=== PATIENT | female | born 1945 | race Caucasian/White ===

== ENCOUNTER 2017-12-31 06:20 | Inpatient (IN) | payer OTHER ==
[2017-12-28 10:39] LABS: BASOPHILS # (AUTO) 0.1 (0.0-0.1); BASOPHILS % 0.8 % (0.0-1.0); EOSINOPHILS # (AUTO) 0.3 (0.0-0.4); EOSINOPHILS % 3.1 % (0.0-6.0); HEMATOCRIT 35.4 % (34.2-44.1); HEMOGLOBIN 10.8 g/dL (12.0-16.0); LYMPHOCYTES # (AUTO) 1.2 (1.0-3.2); LYMPHOCYTES % 13.9 % (18.0-39.1); MEAN CORPUSCULAR HEMOGLOBIN 26.5 pg (28-32); MEAN CORPUSCULAR HGB CONC 30.5 g/dL (31-35); MONOCYTES # (AUTO) 0.7 (0.2-0.8); MONOCYTES % 7.7 % (4.4-11.3); NEUTROPHILS # (AUTO) 6.4 (2.1-6.9); NEUTROPHILS % 73.6 % (38.7-80.0); PLATELET COUNT 219 x10e3/uL (140-360); RED BLOOD COUNT 4.07 x10e6/uL (3.6-5.1); RED CELL DISTRIBUTION WIDTH 13.4 % (11.7-14.4)
[2017-12-28 10:52] LABS: ANION GAP 14.4 mmol/L (8-16); BLOOD UREA NITROGEN 18 mg/dL (7-26); BUN/CREATININE RATIO 24 (6-25); CALCIUM 9.4 mg/dL (8.4-10.2); CARBON DIOXIDE 29 mmol/L (22-29); CHLORIDE 101 mmol/L (98-107); CREATININE, SERUM 0.76 mg/dL (0.57-1.11); EST GLOMERULAR FILTRATION RATE > 60 ML/MIN (60-); GLUCOSE 84 mg/dL (74-118); POTASSIUM 4.4 mmol/L (3.5-5.1); SODIUM 140 mmol/L (136-145)
--- NOTE | 2017-12-28 12:34 | Diagnostic Imaging Report ---
PROCEDURE: X-RAY CHEST, TWO VIEWS COMPARISON: Patients [facility], DX, CHEST 2 VIEWS, 02/19/2017, 12:24. INDICATIONS: PREOPERATIVE CHEST XRAY FOR LEFT HIP SURGERY FINDINGS: LUNGS: Diffusely hyperinflated consistent with COPD. No mass or infiltrate. Mild apical pleural-parenchymal thickening is stable. Vascular markings are normal. PLEURA: No effusions or pneumothorax. HEART \T\ MEDIASTINUM: The heart is within normal size-limits. BONES \T\ SOFT TISSUES: The bones are diffusely demineralized. Fusion hardware in the upper lumbar spine is stable and incompletely imaged. Degenerative changes of the left shoulder are stable. CONCLUSION: Stable pulmonary hyperinflation suggestive of COPD. No acute cardiopulmonary process. Dictated by: Babatunde Prado M.D. on 12/28/2017 at 12:38 Electronically approved by: Babatunde Prado M.D. on 12/28/2017 at 12:38
[~2017-12-31] VITALS: Ht 162.6 cm; Wt 64.9 kg
[~2017-12-31 06:20] MED LIST: AMLODIPINE BESYL5 MG PO; ARICEPT5 MG PO; AZOR 5-20 MG T1 EACH PO; BENZTROPINE MESY1 MG PO; BUPROPION XL150 MG PO; CITALOPRAM HBR20 MG PO; CITRACAL + D E1 EACH PO; CO-GESIC 5-5001 EACH PO; COGENTIN1 MG/1 ML; CYMBALTA30 MG PO; DECARA25000 UNIT PO; DICYCLOMINE HCL20 MG PO; FLUOXETINE HCL20 M1 PO; HYDROCODON-ACE1 EAC9 PO; LAMOTRIGINE100 MG PO; LEVOXYL25 MCG PO; LINZESS PO; LORAZEPAM1 MG PO; LUNESTA2 MG PO; METFORMIN HCL500 MG PO; MIRALAX17 GM PO; MORPHINE PO; MORPHINE SULFAT15 M1 PO; NORCO 10-325 T1 EACH PO; OMEPRAZOLE40 MG PO; PEXEVA30 MG PO; QUETIAPINE FUM100 MG PO; QUETIAPINE FUMA25 MG PO; QUETIAPINE FUMA50 MG PO; SENOKOT-S TABL1 EACH PO; SERTRALINE HCL100 MG PO; TOPIRAMATE100 MG PO; TRAZODONE HCL50 MG PO; Z.0.LAMICTAL100 MG PO; Z.0.LOPID600 MG PO; Z.0.TRAZODONE HCL100 PO; [UNRECOGNIZED DRUG - OTHER] PO
[2017-12-31] MEDS ORDERED: VANCOMYCIN 1GM/NS 250 ML 250 ML ONE (06:51)
[2017-12-31] MEDS ORDERED: DEXAMETHASONE SOD PHOS 10 MG/1 ML VIAL ONE (06:54)
[2017-12-31] MEDS ORDERED: GABAPENTIN 300 MG CAP ONE (06:54)
[2017-12-31] MEDS ORDERED: CELECOXIB 200 MG CAP ONE (06:54)
[2017-12-31] MEDS ORDERED: ROPIVACAINE 246.25 MG, EPINEPHRINE HCL 1:1000 0.5 MG, CLONIDINE HCL 0.08 MG, KETOROLAC ... INJ ONE ×5 (07:30)
[2017-12-31] MEDS ORDERED: MUPIROCIN 2% OINT 22 GM TUBE ONE (07:52)
[2017-12-31] MEDS ORDERED: TRANEXAMIC ACID 1,000 MG/10 ML ML ONE (07:52)
[2017-12-31] MEDS ORDERED: BACITRACIN 50,000 UNIT VIAL ONE (07:52)
[2017-12-31] MEDS ORDERED: HYDROGEN PEROXIDE 120 ML BTL ONE (07:52)
[2017-12-31] MEDS ORDERED: ACETAMINOPHEN 650 MG SUPP PR PRN (09:45)
[2017-12-31] MEDS ORDERED: ONDANSETRON HCL INJ 2 MG/ML VIAL IV PRN (09:45)
[2017-12-31] MEDS ORDERED: DOCUSATE SODIUM 100 MG CAP PO PRN (09:45)
[2017-12-31] MEDS ORDERED: HYDROCODONE/APAP 5MG-325MG TAB PO PRN (09:45)
[2017-12-31] MEDS ORDERED: DIPHENHYDRAMINE HCL INJ 50 MG/ML VIAL IM/IV PRN (09:45)
--- NOTE | 2017-12-31 11:01 | Operative Report ---
DATE OF PROCEDURE: December 31, 2017 ANHYDROUS AMMONIA PRODUCTION SUPERVISOR: Horacio Riley PA-C The patient was brought to the operating room for induction of anesthesia. Throughout this case, my PA's assistance was necessary for retraction of soft tissue and positioning of the extremity. This allows for efficient and technically successful execution of the operation and is considered medically necessary. PREOPERATIVE DIAGNOSIS: Left hip osteonecrosis. POSTOPERATIVE DIAGNOSIS: Left hip osteonecrosis. PROCEDURE: Left total hip arthroplasty. INDICATIONS: The patient is a 72-year-old lady who has clinic signs and symptoms consistent with osteonecrosis of her left hip. She has failed conservative management and has severe disabling pain. She would like to proceed with a left total hip replacement. The risks and benefits have been explained. She states she understands and wishes to proceed. DESCRIPTION OF PROCEDURE: The patient was brought to the operating room and placed under general anesthetic. She received prophylactic antibiotics and tranexamic acid in the holding area. She was positioned in the right lateral decubitus position. Her left hip was prepped and draped in a sterile manner. A preoperative time out was performed. A posterior approach was made to left hip. Care was taken to avoid injury to the sciatic nerve. Hemostasis was obtained with electrocautery. A deep Charnley retractor was placed. The posterior capsule was carefully exposed. Further hemostasis was obtained with electrocautery. The posterior capsule and short external rotators were released. A large intra-articular effusion was encountered. The hip was dislocated and pronounced subchondral collapse was noted. The femoral head was resected using an oscillating saw. Acetabular retractors were placed. Nice visualization of the socket was accomplished. A [place] hip system was used throughout the case. Labral remnants were removed. The true floor of the acetabulum was established with a 46-mm reamer. The socket was then reamed up to 52 mm. This accomplished bleeding hemispherical cancellous bone. A Trident II socket was impacted into place. Good secure fixation was obtained. Fixation was augmented with a single 20-mm screw placed into the ilium. The hip was thoroughly irrigated with a shower-tip pulsatile lavage before and after implanting the socket. A portion of a 100 mL premixed pericapsular injection was injected around the soft tissue. A highly cross link polyethylene liner with no posterior elevation and a 36 mm inner diameter was then seated into place. Care was taken to make sure that there was no soft tissue interposed. The socket was packed with a moistly soaked lap sponge, and attention was directed towards the proximal femur. A box cutting osteotome and taper pin reamer were used to establish entry to the femoral canal. The Chandler 37.5 mm offset broaches were trialed. A #0 stem had adequate canal stability for trial reductions. Nice mandaen of limb length and stability was accomplished with a standard 36-mm head. The trial implants were removed. A small bone plug was placed down the femoral canal. The canal was thoroughly irrigated with a pulsatile lavage. It was packed with moistly soaked peroxide sponges under suction. Two mixes of Simplex cement preloaded with antibiotics were prepared on the back table. This cement was inserted in a retrograde fashion and pressurized until about 6-1/2 minutes of cement time. The stem was seated to the predetermined level and about 15 degrees of anteversion. Once the cement had cured, repeat trial reductions were performed. Again, a standard 36-mm head was felt to be optimal. The implant was seated and a final reduction was performed. The capsule was repaired with #2 Ethibond. The hip was put through a full arc of motion and noted have excellent stability. The hip was further irrigated. The remainder of the catie-incisional injection was placed. The tensor fascia and gluteal fascia were closed with #2 Ethibond. The skin was closed with subcuticular Vicryl and janeth. A sterile bandage was applied. She was returned to the supine position, extubated and transported to the recovery room in stable condition. Blood loss was approximately 75 mL. At the end of the procedure, all needle and sponge counts were correct. Job#: [id number] MONICO
--- NOTE | 2017-12-31 11:01 | Diagnostic Imaging Report ---
PROCEDURE:X-RAY PELVIS, AP VIEW COMPARISON:None. INDICATIONS:POST OP FINDINGS: See conclusion. CONCLUSION: Expected postoperative changes at the left hip arthroplasty, marked by soft tissue emphysema, edema, and overlying skin janeth. The hardware is intact. Dictated by: Forrest Feliz M.D. on 12/31/2017 at 11:05 Electronically approved by: Forrest Feliz M.D. on 12/31/2017 at 11:05
[2017-12-31] MEDS: FENTANYL CITRATE/PF 100MCG/2 ML INJ ONE ×2 (11:13→11:57)
[2017-12-31] MEDS: ACETAMINOPHEN 1000 MG/100 ML IV SCH ×2 (11:13→17:02)
[2017-12-31] MEDS: ACETAMINOPHEN 1000 MG/100 ML 100 ML IV ONE ×2 (11:13→12:19)
[2017-12-31] MEDS: SODIUM CHLORIDE 0.9% 1000ML 1,000 ML IV SCH ×2 (11:51→19:44)
[2017-12-31] MEDS: KETOROLAC TROMETHAMINE 30 MG/ML VIAL IV PRN ×2 (11:53→18:35)
[2017-12-31 12:00] VITALS: BP 140/61
[2017-12-31 12:37] VITALS: BP 140/61
[2017-12-31] MEDS: HYDROCODONE/APAP 7.5MG-325MG 1 EA TAB PO PRN ×3 (14:32→21:00)
[2017-12-31 16:00] VITALS: BP 122/57
[2017-12-31] MEDS ORDERED: CELECOXIB 100 MG CAP PO SCH (17:00)
[2017-12-31] MEDS: ASPIRIN 325 MG TAB PO SCH (17:01)
[2017-12-31] MEDS: CELECOXIB 200 MG CAP PO SCH (17:01)
[2017-12-31] MEDS: VANCOMYCIN 1GM/NS 250 ML 250 ML IV SCH (17:23)
[2017-12-31] MEDS ORDERED: ACETAMINOPHEN 1000 MG/100 ML IV ONE (17:35)
[2017-12-31] MEDS ORDERED: ROCURONIUM BROMIDE 10 MG/ML 5ML VIAL ONE (17:35)
[2017-12-31] MEDS ORDERED: ONDANSETRON HCL INJ 2 MG/ML VIAL ONE (17:35)
[2017-12-31] MEDS ORDERED: DEXAMETHASONE SOD PHOS INJ 4 MG/ML VIAL ONE (17:35)
[2017-12-31] MEDS ORDERED: PROPOFOL IV EMULSION 10 MG/ML 20 ML VIAL ONE (17:35)
[2017-12-31] MEDS ORDERED: LIDOCAINE HCL 2% LOCAL INJ 5 ML SDV VIAL INJ ONE (17:35)
[2017-12-31] MEDS ORDERED: SEVOFLURANE INHAL SOLN 250 ML PEN BTL ONE (17:35)
[2017-12-31] MEDS ORDERED: LIDOCAINE HCL 2% JELLY 5 ML TUBE ONE (17:35)
[2017-12-31] MEDS ORDERED: FENTANYL CITRATE/PF 100MCG/2 ML INJ ONE (17:44)
[2017-12-31 20:00] VITALS: BP 156/69
[2017-12-31] MEDS ORDERED: ZOLPIDEM TARTRATE 5 MG TAB PO PRN (21:00)
[2017-12-31] MEDS ORDERED: PROMETHAZINE HCL (IM) 25 MG/ML VIAL IM PRN (21:00)
[2018-01-01] VITALS (8 sets, daily range): BP systolic 141–184; BP diastolic 62–86
[2018-01-01] MEDS: ACETAMINOPHEN 1000 MG/100 ML IV SCH ×2 (00:13→05:10)
[2018-01-01] MEDS: KETOROLAC TROMETHAMINE 30 MG/ML VIAL IV PRN ×2 (00:45→06:46)
[2018-01-01] MEDS: HYDROCODONE/APAP 7.5MG-325MG 1 EA TAB PO PRN ×2 (01:50→06:24)
[2018-01-01] MEDS: SODIUM CHLORIDE 0.9% 1000ML 1,000 ML IV SCH (05:09)
[2018-01-01 05:33] LABS: HEMATOCRIT 29.7 % (34.2-44.1); HEMOGLOBIN 9.6 g/dL (12.0-16.0)
[2018-01-01] MEDS: VANCOMYCIN 1GM/NS 250 ML 250 ML IV SCH (05:33)
[2018-01-01] MEDS: CELECOXIB 200 MG CAP PO SCH (07:55)
[2018-01-01] MEDS: ASPIRIN 325 MG TAB PO SCH (07:55)
[2018-01-01] MEDS ORDERED: HYDROCODONE/APAP 10MG-325MG TAB PO PRN (09:00)
[2018-01-01] MEDS ORDERED: CALCIUM CARB PO SCH (09:00)
[2018-01-01] MEDS ORDERED: CIT PO SCH (09:00)
[2018-01-01] MEDS ORDERED: AMLODIPINE BESYLATE 5 MG TAB PO SCH (09:00)
[2018-01-01] MEDS ORDERED: BUPROPION HCL 150 MG TABCR PO SCH (09:00)
[2018-01-01] MEDS ORDERED: METFORMIN HCL 500 MG TAB PO SCH (09:00)
[2018-01-01] MEDS ORDERED: DICYCLOMINE HCL 20 MG TAB PO SCH (09:00)
[2018-01-01] MEDS ORDERED: VITAMIN D3 PO SCH (09:00)
[2018-01-01] MEDS ORDERED: LORAZEPAM 1 MG TAB PO PRN (09:00)
[2018-01-01] MEDS ORDERED: HYDROCODONE/APAP 10MG-325MG TAB PO ONE (09:15)
[2018-01-01] MEDS: MORPHINE SULFATE INJ 4 MG/ML INJ IV PRN ×2 (09:27→14:19)
[2018-01-01] MEDS ORDERED: ACETAMINOPHEN 1000 MG/100 ML IV PRN (09:45)
[2018-01-01] MEDS ORDERED: ASPIRIN325 MG PO (12:39)
[2018-01-01] MEDS ORDERED: SERTRALINE HCL 100 MG TAB PO SCH (17:00)
[2018-01-01] MEDS ORDERED: TRAZODONE HCL 50 MG TAB PO SCH (21:00)
[2018-01-01] MEDS ORDERED: NON-FORMULARY MEDICATION (Eszopiclone (Lunesta) 2 MG) PO SCH (21:00)
[2018-01-01] MEDS ORDERED: DONEPEZIL HCL 5 MG TAB PO SCH (21:00)
[2018-01-02] MEDS ORDERED: CITALOPRAM HYDROBROMIDE 20 MG TAB PO SCH (09:00)
[2018-01-02] MEDS ORDERED: OYST-CAL-D 500MG TABLET PO SCH (09:00)
[2018-01-02] MEDS ORDERED: FLUOXETINE HCL 20 MG CAP PO SCH (09:00)
== END 2018-01-01 16:09 | disposition home health service (06) | DRG 470 ==
LOC: OR 06:20 → PACU V 09:46 → MED/SURG 11:35
PROVIDERS: ADMIT Specialist; ATTEND Specialist
PROC: 0SRB049 Replacement of Left Hip Joint with Ceramic on Polyethylene Synthetic Substitute, Cemented, Open Approach (ICD-10-PCS; principal; 2017-12-31 08:30)
DX: M87.152 Osteonecrosis due to drugs, left femur (principal); I10 Essential (primary) hypertension; F41.9 Anxiety disorder, unspecified; J45.909 Unspecified asthma, uncomplicated; E78.5 Hyperlipidemia, unspecified; F32.9 Major depressive disorder, single episode, unspecified; T38.0X5A Adverse effect of glucocorticoids and synthetic analogues, initial encounter; M17.11 Unilateral primary osteoarthritis, right knee; Z96.651 Presence of right artificial knee joint
CPT/HCPCS: 36415; 71046; 72170; 80048; 82948; 85014; 85018; 85025; 86850; 86900; 86920; 93005; 97139; C1713; J0171; J1100; J1200; J1885; J2001; J2270; J2405; J2795; J3370; J7030

== ENCOUNTER 2018-07-13 10:04 | Observation (INO) | payer MEDICARE ==
[~2018-07-13] VITALS: Ht 162.6 cm; Wt 65.8 kg
[2018-07-13] VITALS (7 sets, daily range): BP systolic 144–158; BP diastolic 63–71
[~2018-07-13 10:04] MED LIST changes: +ASPIRIN325 MG PO; +GABAPENTIN300 MG PO; +LEVAQUIN250 MG PO; +SYMBICORT 16010.2 GM; +TRILEPTAL300 MG PO; +TYLENOL WITH C1 EACH PO; +ZOFRAN ODT4 MG
--- NOTE | 2018-07-13 10:30 | NUR ---
Patient came in as a direct admission on a wheelchair. She was accompanied by her son. Her daughter in law brought in her home medications so we can write them in. Patient is AxO x 3. She is cooperative and has restless legs. Son mentioned "she has bipolar and at the end of her manic stage".
[2018-07-13 10:54] LABS: BASOPHILS # (AUTO) 0.1 (0.0-0.1); BASOPHILS % 0.7 % (0.0-1.0); EOSINOPHILS # (AUTO) 0.4 (0.0-0.4); EOSINOPHILS % 4.9 % (0.0-6.0); HEMATOCRIT 36.9 % (34.2-44.1); HEMOGLOBIN 11.6 g/dL (12.0-16.0); LYMPHOCYTES # (AUTO) 0.9 (1.0-3.2); MEAN CORPUSCULAR HEMOGLOBIN 26.2 pg (28-32); MEAN CORPUSCULAR HGB CONC 31.4 g/dL (31-35); MEAN CORPUSCULAR VOLUME 83.3 fL (81-99); MONOCYTES # (AUTO) 0.5 (0.2-0.8); MONOCYTES % 7.6 % (4.4-11.3); NEUTROPHILS # (AUTO) 5.2 (2.1-6.9); NEUTROPHILS % 73.2 % (38.7-80.0); PLATELET COUNT 197 x10e3/uL (140-360); RED BLOOD COUNT 4.43 x10e6/uL (3.6-5.1); RED CELL DISTRIBUTION WIDTH 15.1 % (11.7-14.4)
[2018-07-13] MEDS ORDERED: PREDNISONE20 MG PO (11:07)
[2018-07-13 11:11] LABS: ALANINE AMINOTRANSFERASE 33 IU/L (0-55); ALBUMIN 3.8 g/dL (3.5-5.0); ALBUMIN/GLOBULIN RATIO 1.4 (0.8-2.0); ALKALINE PHOSPHATASE 69 IU/L (40-150); ANION GAP 14.5 mmol/L (8-16); BLOOD UREA NITROGEN 12 mg/dL (7-26); BUN/CREATININE RATIO 15 (6-25); CALCIUM 8.9 mg/dL (8.4-10.2); CARBON DIOXIDE 24 mmol/L (22-29); CHLORIDE 108 mmol/L (98-107); CREATININE, SERUM 0.82 mg/dL (0.57-1.11); EST GLOMERULAR FILTRATION RATE > 60 ML/MIN (60-); GLUCOSE 103 mg/dL (74-118); POTASSIUM 4.5 mmol/L (3.5-5.1); SODIUM 142 mmol/L (136-145)
[2018-07-13] MEDS ORDERED: ATORVASTATIN CA20 MG PO (11:15)
[2018-07-13] MEDS ORDERED: ALBUTEROL SULF 0.083% NEB SOLN 3 ML NEB NEB PRN (11:15)
[2018-07-13] MEDS ORDERED: LISINOPRIL2.5 MG PO (11:15)
[2018-07-13] MEDS ORDERED: TRAZODONE HCL50 MG PO (11:15)
[2018-07-13] MEDS ORDERED: OXCARBAZEPINE150 MG (11:15)
[2018-07-13] MEDS ORDERED: ARICEPT5 MG PO (11:15)
[2018-07-13] MEDS ORDERED: SERTRALINE HCL100 MG PO (11:15)
[2018-07-13] MEDS ORDERED: BUPROPION HCL100 MG PO (11:15)
[2018-07-13] MEDS ORDERED: ACETAMINOPHEN 325 MG TAB PO PRN (11:30)
--- NOTE | 2018-07-13 11:31 | Diagnostic Imaging Report ---
EXAM: XR CHEST 2 VIEWS DATE: 07/13/2018 11:03 AM INDICATION: Bronchitis COMPARISON: 02/19/2018 chest x-ray, 02/19/2018 CT, no report available FINDINGS: Lines and Tubes: None Heart and Mediastinum: No acute cardiomediastinal findings. Lungs and Pleura: Biapical scarring, advanced emphysematous changes, and chronic appearing changes in the lung bases are similar. Bones and Soft Tissues: No acute findings. IMPRESSION: 1. Similar chronic changes. Superimposed infectious process difficult to exclude. Signed by: Dr. Shola Stone MD on 07/13/2018 11:28 AM
[2018-07-13] MEDS: DOXYCYCLINE 100MG/NS 100ML 100 ML IV SCH ×2 (12:02→23:50)
[2018-07-13] MEDS ORDERED: ONDANSETRON HCL 4 MG ORAL DISINTEGRATING TAB PO PRN (12:15)
[2018-07-13] MEDS ORDERED: ACETAMINOPHEN/CODEINE 300MG - 30MG TAB PO PRN (12:15)
[2018-07-13] MEDS ORDERED: [UNRECOGNIZED DRUG - OTHER] PO PRN (12:30)
[2018-07-13] MEDS: METHYLPREDNISOLONE SOD SUCC 125 MG/2ML VIAL IV SCH ×2 (13:23→21:22)
[2018-07-13] MEDS: GABAPENTIN 300 MG CAP PO SCH ×2 (14:34→21:22)
--- NOTE | 2018-07-13 14:36 | Diagnostic Imaging Report ---
EXAM: CT Chest WITH contrast INDICATION: Bronchitis COMPARISON: Same day radiograph and 02/19/[address], no report available TECHNIQUE: The Chest was scanned utilizing a multidetector helical scanner after administration of IV contrast. Coronal and sagittal reformations were obtained. IV CONTRAST: 100 mL Isovue-370 COMPLICATIONS: None RADIATION DOSE: Total DLP: 466 mGy*cm Estimated effective dose: (DLP x 0.015 x size factor) mSv CTDIvol has been reviewed. It is below the limits set by the Radiation Protocol Committee (RPC). Appropriate CT dose reduction techniques were utilized. FINDINGS: Lines and Tubes: None. Lower Neck: The visualized thyroid gland is grossly unremarkable with no suspicious or significant nodule identified. Heart and Great Vessels: The aorta and main pulmonary artery measure 30 and 24 mm. respectively. No pericardial effusion. Advanced coronary vascular calcifications including left main coronary artery. Lymph Nodes: Prominent right hilar lymph nodes including 27 x 14 mm image 44 and 18 x 13 mm image 53, more conspicuous than previous study. Additional 14 x 7 mm right precarinal, 11 x 10 mm right paratracheal, and 15 x 6 mm preaortic, which are similar. Lungs: Advanced emphysematous changes are present with moderate biapical scarring. There is no pneumothorax or pleural effusion. Trachea and central bronchi are unremarkable. Bronchial wall thickening present, particularly in the lower lobes. 4 mm pleural nodule right lower lobe image 60 stable. Mild basilar fibrotic changes. Mild scattered groundglass opacities. Upper abdomen: Splenic granulomata. Cyst left kidney. Minimal nodularity left adrenal gland stable. Cholecystectomy clips with reservoir phenomenon. Bones and Soft Tissues: Degenerative changes. Several thoracic vertebral bodies with minimal height loss. IMPRESSION: 1. Advanced emphysematous changes, biapical scarring, scattered bronchial wall thickening, and mild fibrotic changes in the lung bases. Findings similar to previous study. 2. Ill-defined groundglass opacities could represent superimposed acute infectious/inflammatory process. 3. Right hilar adenopathy slightly more conspicuous than previous study with other mediastinal/hilar lymph nodes similar. Given several partially calcified lymph nodes and splenic granulomata, a component of prior granulomatous disease present. Given increased conspicuity of right hilar lymph nodes, however, CT with contrast follow-up recommended. 4. Advanced coronary artery vascular calcifications. Signed by: Dr. Shola Stone MD on 07/13/2018 2:32 PM
[2018-07-13] MEDS ORDERED: SODIUM CHLORIDE 0.9% 50ML 50 ML ONE (16:55)
[2018-07-13] MEDS ORDERED: IOPAMIDOL 370 MG/ML 200 ML INFUS..BTL INJ ONE (16:56)
[2018-07-13] MEDS: BUDESONIDE/FORMOTEROL 160/4.5MCG INHALER INH SCH ×2 (17:00→19:00)
[2018-07-13] MEDS: METFORMIN HCL 500 MG TAB PO SCH (17:52)
[2018-07-13] MEDS: OXCARBAZEPINE 300 MG TAB PO SCH (17:52)
[2018-07-13] MEDS ORDERED: SERTRALINE HCL 100 MG TAB PO SCH (21:00)
[2018-07-13] MEDS: DONEPEZIL HCL 5 MG TAB PO SCH (21:22)
[2018-07-13] MEDS: ATORVASTATIN 20 MG TAB PO SCH (21:22)
[2018-07-13] MEDS: QUETIAPINE FUMARATE 100 MG TAB PO SCH (21:22)
[2018-07-13] MEDS: LISINOPRIL 2.5 MG TAB PO SCH (21:22)
[2018-07-13] MEDS: TRAZODONE HCL 50 MG TAB PO SCH (21:22)
[2018-07-14] VITALS (8 sets, daily range): BP systolic 119–180; BP diastolic 57–78
--- NOTE | 2018-07-14 01:13 | NUR ---
Started new IV on left AC 20g at this time.
--- NOTE | 2018-07-14 06:48 | NUR ---
Report given to YESSICA Matute.
[2018-07-14] MEDS: BUDESONIDE/FORMOTEROL 160/4.5MCG INHALER INH SCH ×2 (07:40→20:00)
[2018-07-14] MEDS: METFORMIN HCL 500 MG TAB PO SCH (08:11)
[2018-07-14] MEDS: METHYLPREDNISOLONE SOD SUCC 125 MG/2ML VIAL IV SCH ×2 (08:12→21:18)
[2018-07-14] MEDS: GABAPENTIN 300 MG CAP PO SCH ×3 (08:12→21:18)
[2018-07-14] MEDS: OXCARBAZEPINE 300 MG TAB PO SCH ×2 (08:12→16:06)
[2018-07-14] MEDS: AMLODIPINE BESYLATE 5 MG TAB PO SCH (08:12)
[2018-07-14] MEDS: DOXYCYCLINE 100MG/NS 100ML 100 ML IV SCH (11:49)
--- NOTE | 2018-07-14 16:51 | History and Physical ---
CHIEF COMPLAINT: Wheezing and dyspnea. HISTORY OF PRESENT ILLNESS: The patient is a 72-year-old woman with a history of chronic obstructive pulmonary disease. She has required outpatient steroids and antibiotics over the past week because of worsening dyspnea and congestion. She has been using her nebulizers more frequently. She came to the office yesterday and was still wheezing and tachypneic. She did not complain of chest pain or fevers. PAST MEDICAL HISTORY 1. COPD as noted above. 2. Bipolar illness. 3. Possible restless leg syndrome. 4. Hypertension. PAST SURGICAL HISTORY 1. Status post colon resection with colostomy that was reversed. 2. Status post lumbar laminectomy. 3. Status post hysterectomy. 4. Status post appendectomy. 5. Status post left hip replacement. SOCIAL HISTORY: The patient is an active smoker. She is not a drinker. She lives with her family. ALLERGIES: SHE IS ALLERGIC TO PENICILLIN. FAMILY HISTORY: Family history is noncontributory. REVIEW OF SYSTEMS: She does not complain of fever or headache. She denies any neck pain. She is not having any chest pain. She does note coughing and congestion. She also has some increased wheezing. She does not complain of chest pain. She denies any abdominal pain. She has no nausea or vomiting. She is not having any leg edema. She does complain of some urge to move her legs and some twitching at night. PHYSICAL EXAMINATION VITAL SIGNS: The patient is afebrile. The pulse is 85 and respiratory rate is 16. HEENT: Shows no facial swelling or erythema. Nasal mucosa is normal. The oropharynx is normal. LYMPHATIC: Shows no submandibular, cervical, or supraclavicular adenopathy. CARDIAC: Reveals a regular rate and rhythm with normal S1 and S2. LUNGS: Auscultation of the lungs reveals wheezes bilaterally. There is a prolonged expiratory phase. ABDOMEN: Soft, nontender. There is no rebound or guarding. EXTREMITIES: Shows no leg edema or calf tenderness. There is no cyanosis or clubbing. SKIN: No rashes. NEUROLOGICAL: Shows no focal abnormalities. LABORATORY DATA: White blood cell count is 7.1 and hemoglobin is 11.6. Platelet count is 197. BUN to creatinine ratio is normal. The blood sugars are normal. Other electrolytes are within normal limits. IMPRESSION 1. Chronic obstructive pulmonary disease with acute exacerbation. 2. Restless leg syndrome. 3. History of bipolar disorder. PLAN 1. Patient will receive IV Solu-Medrol along with doxycycline and aggressive bronchodilators. 2. Nasal swab for influenza. 3. Repeat CT scan of the chest to evaluate for mediastinal lymphadenopathy. 4. Check serum ferritin, magnesium, and potassium because of possible restless leg syndrome. 5. Consider decreasing the Seroquel, serotonin agonists, and Lipitor which can all aggravate restless legs syndrome. Job#: [id number] LPA
[2018-07-14] MEDS ORDERED: SERTRALINE HCL 50 MG TAB PO SCH (21:00)
[2018-07-14] MEDS: LISINOPRIL 2.5 MG TAB PO SCH (21:18)
[2018-07-14] MEDS: ATORVASTATIN 20 MG TAB PO SCH (21:18)
[2018-07-14] MEDS: DONEPEZIL HCL 5 MG TAB PO SCH (21:18)
[2018-07-14] MEDS: QUETIAPINE FUMARATE 100 MG TAB PO SCH (21:18)
[2018-07-14] MEDS: TRAZODONE HCL 50 MG TAB PO SCH (21:18)
[2018-07-15] VITALS: BP 173/74
[2018-07-15] MEDS: DOXYCYCLINE 100MG/NS 100ML 100 ML IV SCH (00:08)
[2018-07-15 01:40] VITALS: BP 157/70
[2018-07-15 04:00] VITALS: BP 168/73
[2018-07-15] MEDS: BUDESONIDE/FORMOTEROL 160/4.5MCG INHALER INH SCH (07:00)
--- NOTE | 2018-07-15 07:09 | NUR ---
Report given to oncoming JENNIFER Soto,walking round done.
[2018-07-15 07:35] VITALS: BP 155/70
[2018-07-15] MEDS: OXCARBAZEPINE 300 MG TAB PO SCH (08:20)
[2018-07-15] MEDS: METHYLPREDNISOLONE SOD SUCC 125 MG/2ML VIAL IV SCH (08:20)
[2018-07-15] MEDS: AMLODIPINE BESYLATE 5 MG TAB PO SCH (08:20)
[2018-07-15] MEDS: GABAPENTIN 300 MG CAP PO SCH (08:20)
--- NOTE | 2018-07-15 08:58 | NUR ---
SOCIAL WORK INITIAL ASSESSMENT Celery Tier to bedside to discuss plan of care with patient/family. CM/SW role and care transitions discussed. Anticipated discharge plan discussed along with duration of care. CM/SW discussed patients right to make decisions in care. CM/SW work hours given. Patient lives: IN OWN HOUSE WITH SON AND HIS FAMILY Admit/Transfer: VIA ED FROM HOME POA/Emergency contact: SON WORKS AT [employer] AND DAUGHTER IN [employer] Current/Previous Home Health: NONE PCP/Follow-up Care: TAMMY Current/Previous DME: [facility] Other Services: NONE Employment Status: RETIRED Areas of Concerns: NONE Referral Needs: NONE Education Needs: NONE IMM/JURADO given and signed (if applicable): JURADO Goal for discharge: RETURN HOME WITH FAMILY CM/SW left business card at the bedside with contact information. Name and number was also written on the patients whiteboard. Patient verbalized understanding of discussion. CM will follow-up with ongoing discharge and transition of care needs.
--- NOTE | 2018-07-15 09:07 | NUR ---
PATIENT DISCHARGED AT THIS TIME RX GIVEN, EDUCATION AND F/U INSTRUCTIONS GIVEN. IV DC'D SECURED WITH 4X4 GAUZE AND TAPE. PT WAITING FOR RIDE.
--- NOTE | 2018-07-15 14:47 | Discharge Summary ---
DISCHARGE DIAGNOSES 1. Chronic obstructive pulmonary disease with acute exacerbation. 2. Restless legs syndrome. 3. Hypertension. 4. Diabetes. DISCHARGE MEDICATIONS 1. Amlodipine 5 mg p.o. daily. 2. Symbicort 160 per 4.5 one puff twice a day. 3. Aricept 5 mg 2 tablets daily. 4. Gabapentin 300 mg p.o. t.i.d. 5. Levaquin 250 mg p.o. daily for 5 days. 6. Prednisone 10 mg p.o. daily for 5 days. 7. Lisinopril 5 mg p.o. daily. 8. Lorazepam 1 mg q.12 p.r.n. 9. Metformin 500 mg p.o. b.i.d. 10. Trileptal 300 mg p.o. b.i.d. 11. Quetiapine 300 mg p.o. nightly. 12. Trazodone 100 mg p.o. nightly. HISTORY OF PRESENT ILLNESS: The patient is a 72-year-old woman with history of chronic obstructive pulmonary disease. She was worsening with outpatient steroids and nebulizers. She still complained of wheezing and tachypnea. HOSPITAL COURSE: The patient was admitted. She was started on IV antibiotics and Solu-Medrol. She also received bronchodilators and oxygen. She noticed some improvement with this and had less wheezing and coughing. She had a CT scan of the chest that did show some chronic mediastinal adenopathy with some calcification. There was a slight enlargement of the hilar nodes on the right side. There was some calcium in the spleen. The patient's hospital course was also complicated by restless legs syndrome. Her electrolytes and ferritin were checked. Her Lipitor was held as well as her SSRIs to try and prevent worsening leg movements. DISPOSITION: The patient felt better at discharge. She will follow up with Dr. Siddiqui in 5 to 7 days. MARILU SIDDIQUI MD Job#: [id number]
== END 2018-07-15 10:12 | disposition home or self-care (01) ==
LOC: IMCU 10:04
PROVIDERS: ADMIT Internal Medicine Critical Care Medicine; ATTEND Internal Medicine Critical Care Medicine
DX: J44.1 Chronic obstructive pulmonary disease with (acute) exacerbation (principal); G25.81 Restless legs syndrome; I10 Essential (primary) hypertension; E11.9 Type 2 diabetes mellitus without complications; R59.0 Localized enlarged lymph nodes; D73.89 Other diseases of spleen; Z79.84 Long term (current) use of oral hypoglycemic drugs; Z79.899 Other long term (current) drug therapy; Z79.52 Long term (current) use of systemic steroids
CPT/HCPCS: 36415 ×3; 71046; 71260; 80053; 82728; 82948 ×2; 85025; 87400; 94664; 96360; G0378 ×3; J2930 ×3; Q9967

== ENCOUNTER 2018-08-22 14:19 | Observation (INO) | payer MEDICARE ==
[~2018-08-22] VITALS: Ht 162.6 cm; Wt 69.0 kg
[~2018-08-22 14:19] MED LIST changes: +ATORVASTATIN CA20 MG PO; +BUPROPION HCL100 MG PO; +LISINOPRIL2.5 MG PO; +OXCARBAZEPINE150 MG; +PREDNISONE20 MG PO
[2018-08-22] MEDS ORDERED: ALBUTEROL SULF 0.083% NEB SOLN 3 ML NEB NEB SCH (14:30)
[2018-08-22] MEDS ORDERED: DEXTROSE 50% SYRINGE 50 ML IV PRN ×2 (15:00→18:30)
[2018-08-22] MEDS: ALBUTEROL SULF 0.083% NEB SOLN 3 ML NEB NEB SCH ×2 (15:00→19:00)
[2018-08-22 15:08] LABS: BASOPHILS % 0.2 % (0.0-1.0); EOSINOPHILS % 0.2 % (0.0-6.0); HEMATOCRIT 39.7 % (34.2-44.1); HEMOGLOBIN 12.5 g/dL (12.0-16.0); LYMPHOCYTES # (AUTO) 0.7 (1.0-3.2); LYMPHOCYTES % 5.9 % (18.0-39.1); MEAN CORPUSCULAR HEMOGLOBIN 26.4 pg (28-32); MEAN CORPUSCULAR HGB CONC 31.5 g/dL (31-35); MEAN CORPUSCULAR VOLUME 83.9 fL (81-99); MONOCYTES # (AUTO) 0.2 (0.2-0.8); MONOCYTES % 1.9 % (4.4-11.3); NEUTROPHILS # (AUTO) 11.2 (2.1-6.9); NEUTROPHILS % 90.7 % (38.7-80.0); PLATELET COUNT 223 x10e3/uL (140-360); RED BLOOD COUNT 4.73 x10e6/uL (3.6-5.1); RED CELL DISTRIBUTION WIDTH 15.5 % (11.7-14.4)
--- NOTE | 2018-08-22 15:20 | Diagnostic Imaging Report ---
EXAM: CHEST 2 VIEWS, PA and lateral DATE: 08/22/2018 Time stamp on exam: 2:31 PM INDICATION: Shortness of breath COMPARISON: 07/13/2018 chest x-ray and CT scan of the chest FINDINGS: LINES/TUBES: None LUNGS: Increased densities in the lung bases likely secondary to fibrosis. No focal consolidation. PLEURA: No effusions or pneumothorax. HEART AND MEDIASTINUM: Normal size and contour. BONES AND SOFT TISSUES: No acute findings. Clips in the right upper quadrant of the abdomen. IMPRESSION: No acute thoracic abnormality. Signed by: Dr. Jae Rivera DO on 08/22/2018 3:17 PM
[2018-08-22] MEDS: DOXYCYCLINE 100MG/NS 100ML 100 ML IV SCH (15:30)
[2018-08-22 15:58] LABS: CLARITY,URINE SL CLOUDY (CLEAR); COLOR,URINE YELLOW (YELLOW); LEUKOCYTE ESTERASE ,URINE 1+ (NEGATIVE); NITRITE,URINE NEGATIVE (NEGATIVE)
[2018-08-22 15:59] LABS: BILIRUBIN,URINE NEGATIVE (NEGATIVE); KETONES,URINE NEGATIVE (NEGATIVE); PROTEIN,URINE DIPSTICK NEGATIVE (NEGATIVE); URINE UROBILINOGEN 0.2 mg/dL (0.2 - 1)
[2018-08-22 16:12] LABS: BACTERIA,URINE MANY /HPF; EPITHELIAL CELLS,URINE MANY /LPF; RBC,URINE 0-5 /HPF (0-5)
[2018-08-22] MEDS ORDERED: SODIUM CHLORIDE 0.9% 1000ML 1,000 ML IV SCH ×2 (16:15)
[2018-08-22] MEDS ORDERED: INSULIN REGULAR, HUMAN 100 UNIT/1 ML 3ML VIAL SQ SCH (16:30)
[2018-08-22 17:00] LABS: ALANINE AMINOTRANSFERASE 27 IU/L (0-55); ALBUMIN 3.8 g/dL (3.5-5.0); ALBUMIN/GLOBULIN RATIO 1.2 (0.8-2.0); ALKALINE PHOSPHATASE 75 IU/L (40-150); ANION GAP 13.6 mmol/L (8-16); BLOOD UREA NITROGEN 14 mg/dL (7-26); BUN/CREATININE RATIO 16 (6-25); CALCIUM 9.4 mg/dL (8.4-10.2); CARBON DIOXIDE 23 mmol/L (22-29); CHLORIDE 104 mmol/L (98-107); CREATINE KINASE 42 IU/L (29-168); CREATININE, SERUM 0.85 mg/dL (0.57-1.11); EST GLOMERULAR FILTRATION RATE > 60 ML/MIN (60-); GLUCOSE 180 mg/dL (74-118); MAGNESIUM 1.9 MG/DL (1.3-2.1); POTASSIUM 4.6 mmol/L (3.5-5.1); SODIUM 136 mmol/L (136-145)
--- NOTE | 2018-08-22 17:23 | NUR ---
Report received from Bob ER nurse. Aware of lactic acid 22.1. Patient has received bolus of fluids
--- NOTE | 2018-08-22 17:30 | NUR ---
Received patient via wheelchair. AAOX4 to time, person, place, situation. Respirations even and unlabored. Tele 13 SR 81 on continuous SPO2 96%. Denies pain. Oriented patient to room. Instructed to use call light for assistance. Voiced understanding.
[2018-08-22 17:48] VITALS: BP 134/63
[2018-08-22 17:55] VITALS: BP 134/63
[2018-08-22] MEDS ORDERED: ONDANSETRON HCL 4 MG ORAL DISINTEGRATING TAB PO PRN (18:30)
[2018-08-22] MEDS ORDERED: HYDROCODONE/APAP 5MG-325MG TAB PO PRN (18:30)
[2018-08-22] MEDS ORDERED: DICYCLOMINE HCL 20 MG TAB PO PRN (18:30)
[2018-08-22] MEDS ORDERED: BENZONATATE 100 MG CAP PO PRN (18:30)
[2018-08-22] MEDS ORDERED: ACETAMINOPHEN/CODEINE 300MG - 30MG TAB PO PRN ×2 (18:30→19:00)
[2018-08-22] MEDS ORDERED: LORAZEPAM 1 MG TAB PO PRN (18:30)
[2018-08-22] MEDS ORDERED: ONDANSETRON HCL INJ 2MG/ML 2ML 2 MG/ML VIAL IV PRN (18:30)
[2018-08-22] MEDS ORDERED: ACETAMINOPHEN 325 MG TAB PO PRN (18:30)
[2018-08-22] MEDS ORDERED: GUAIFENESIN 200 MG/10 ML UDC PO PRN (18:45)
[2018-08-22] MEDS: BUDESONIDE/FORMOTEROL 160/4.5MCG INHALER INH SCH (19:00)
--- NOTE | 2018-08-22 19:46 | NUR ---
Report given to oncoming nurse of patient's status. NO s/s of acute distress noted.
[2018-08-22 20:00] VITALS: BP 136/60
[2018-08-22] MEDS ORDERED: CEFTRIAXONE SOD 1 GM/NS 50 ML 50 ML IV SCH (20:00)
[2018-08-22] MEDS ORDERED: SODIUM CHLORIDE 0.9% 250ML 250 ML ONE (20:12)
[2018-08-22] MEDS ORDERED: LISINOPRIL 2.5 MG TAB PO SCH (21:00)
[2018-08-22] MEDS ORDERED: QUETIAPINE FUMARATE 100 MG TAB PO SCH (21:00)
[2018-08-22] MEDS ORDERED: DONEPEZIL HCL 5 MG TAB PO SCH (21:00)
[2018-08-22] MEDS: INSULIN LISPRO 100 UNIT/1 ML 3ML VIAL SQ SCH (21:00)
[2018-08-22] MEDS ORDERED: TRAZODONE HCL 50 MG TAB PO SCH (21:00)
[2018-08-22] MEDS: GABAPENTIN 300 MG CAP PO SCH (21:25)
[2018-08-22] MEDS: METHYLPREDNISOLONE SOD SUCC 125 MG/2ML VIAL IV SCH (21:25)
[2018-08-23] VITALS (7 sets, daily range): BP systolic 119–138; BP diastolic 55–63
[2018-08-23] MEDS: DOXYCYCLINE 100MG/NS 100ML 100 ML IV SCH ×2 (02:45→14:30)
[2018-08-23] MEDS: BUDESONIDE/FORMOTEROL 160/4.5MCG INHALER INH SCH (06:36)
[2018-08-23] MEDS: ALBUTEROL SULF 0.083% NEB SOLN 3 ML NEB NEB SCH ×3 (06:36→14:34)
--- NOTE | 2018-08-23 07:00 | NUR ---
RCD PT AT BED PT IS ALERT AND ORIENTED PT RESTING ON BED NO SIGNS OF ANY DISTRESS NOTED IV PATENT FAMILY AT BED SIDE BED LOW AND LOCKED CALL LIGHT IN REACH
[2018-08-23] MEDS: INSULIN LISPRO 100 UNIT/1 ML 3ML VIAL SQ SCH ×3 (07:30→16:30)
[2018-08-23] MEDS: METFORMIN HCL 500 MG TAB PO SCH ×2 (09:00→17:00)
[2018-08-23] MEDS: GABAPENTIN 300 MG CAP PO SCH ×2 (09:00→15:00)
[2018-08-23] MEDS ORDERED: OXCARBAZEPINE 300 MG TAB PO SCH (09:00)
[2018-08-23] MEDS ORDERED: AMLODIPINE BESYLATE 5 MG TAB PO SCH (09:00)
[2018-08-23] MEDS: [UNRECOGNIZED DRUG - OTHER] PO SCH ×2 (09:00→17:00)
[2018-08-23] MEDS: METHYLPREDNISOLONE SOD SUCC 125 MG/2ML VIAL IV SCH (09:00)
[2018-08-23] MEDS ORDERED: DULOXETINE HCL 30 MG DELAYED RELEASE PO SCH (09:00)
--- NOTE | 2018-08-23 15:00 | NUR ---
A/C TO DR WAITE PT CAN GO HOME PAGED DR AVINA TO GET DISCHARGE APPROVAL AND LEFT THE MESSAGE
[2018-08-23] MEDS ORDERED: ZITHROMAX TRI-500 MG PO (17:39)
[2018-08-23] MEDS ORDERED: RESTORIL15 MG PO (17:41)
[2018-08-23] MEDS ORDERED: PREDNISONE20 MG PO (17:41)
[2018-08-23] MEDS ORDERED: TRIAMCINOLONE ACET 40 MG/ML VIAL IM NR (17:45)
--- NOTE | 2018-08-23 18:34 | NUR ---
PT WENT HOME IN SAFE CONDITION WITH HER SON
--- NOTE | 2018-08-23 22:21 | Consultation ---
DATE OF CONSULTATION: Pulmonary Critical Care Consultation CHIEF COMPLAINT: Wheezing and dyspnea. HISTORY OF PRESENT ILLNESS: The patient is a 72-year-old woman. She has a history of chronic obstructive pulmonary disease. She has been using nebulizers more frequently at home as well as antibiotics and Solu-Medrol as an outpatient. She has not improved with this. She complains of worsening dyspnea and congestion. She reports some cough. She does not complain of fevers. She does not complain of chest pain. PAST SURGICAL HISTORY: 1. Status post colon resection with a colostomy that was reversed. 2. Status post lumbar laminectomy. 3. Status post hysterectomy. 4. Status post appendectomy. 5. Status post left hip replacement. PAST MEDICAL HISTORY: 1. History of COPD. 2. Bipolar illness. 3. Hypertension. 4. Possible restless legs syndrome. ALLERGIES: THE PATIENT IS ALLERGIC TO PENICILLIN. SOCIAL HISTORY: The patient recently quit smoking. She is not a drinker. FAMILY HISTORY: Family history is noncontributory. REVIEW OF SYSTEMS: There is no headache or fevers. She has no neck pain. She does not have any chest pain. She reports some wheezing and coughing. She has no abdominal pain. She has no nausea or vomiting. She has no leg edema. PHYSICAL EXAMINATION: VITAL SIGNS: The patient is afebrile. The blood pressure is 119/56 and the pulse is 86. The respiratory rate is 17. Saturation is 96% on 2 L. HEENT: Shows no facial swelling or erythema. The nasal mucosa is normal. The oropharynx is normal. LYMPHATIC: Shows no submandibular, cervical, or supraclavicular adenopathy. CARDIAC: Reveals regular rate and rhythm with normal S1 and S2. There are no murmurs or rubs. LUNGS: Auscultation of lungs shows wheezes in both lung morris. There are mild crackles. ABDOMEN: Soft and nontender. There is no rebound or guarding. EXTREMITIES: Shows no leg edema or calf tenderness. There is no cyanosis or clubbing. SKIN: Shows no rashes. NEUROLOGICAL: Shows no focal abnormalities. LABORATORY DATA: White blood cell count is 12.3 and the hemoglobin is 12.5. The platelet count is 223. The blood sugars have been in the 180-230 range. ENO-mj-bbcivcjnab ratio is normal. Electrolytes are within normal limits. RADIOGRAPHIC DATA: Chest x-ray shows no acute abnormality. IMPRESSION: 1. Chronic obstructive pulmonary disease with acute exacerbation. 2. Hypertension. 3. Diabetes. PLAN: 1. The patient has improved with intravenous antibiotics and Solu-Medrol. 2. She can be discharged home with prednisone oral and antibiotics. 3. Continue prior bronchodilator regimen. 4. The patient should follow up with Dr. Siddiqui in 1-2 weeks. MD YAHAIRA Heck/MODL /[id number]
--- NOTE | 2018-08-24 23:26 | Discharge Summary ---
PRIMARY CARE PHYSICIAN: Khari Mcgee M.D. OBSTETRICS TEACHER: Dr. Jerson Siddiqui. The patient is on observation. FINAL DIAGNOSIS: Acute exacerbation of chronic obstructive pulmonary disease. SUMMARY: A 72-year-old female with acute exacerbation of COPD. The patient is doing much better now. She is stable. Wheezing has significantly subsided. The patient will go home with prednisone, azithromycin, and she got a Kenalog 40 mg IM x1. The patient is stable and discharged home today. MD KAT Carrera/MODL /[id number]
== END 2018-08-23 18:52 | disposition home or self-care (01) ==
LOC: ER 14:19 → ERHOLD 14:57 → MED/SURG2 17:34
PROVIDERS: ADMIT Internal Medicine; ATTEND Internal Medicine
DX: J44.1 Chronic obstructive pulmonary disease with (acute) exacerbation (principal); I10 Essential (primary) hypertension; E11.9 Type 2 diabetes mellitus without complications; F31.9 Bipolar disorder, unspecified; M19.90 Unspecified osteoarthritis, unspecified site; G25.81 Restless legs syndrome
CPT/HCPCS: 36415 ×2; 71046; 80053; 81001; 82550; 82553; 82948 ×2; 83605; 83735; 83880; 84484; 85025; 87040; 94640 ×4; 99284; G0378 ×2; J0696; J1817; J2930 ×2; J3301; J7030; J7050

== ENCOUNTER 2018-08-29 09:17 | Emergency (ER) | payer MEDICARE ==
[~2018-08-29] VITALS: Ht 162.6 cm; Wt 68.9 kg
[~2018-08-29 09:17] MED LIST changes: +RESTORIL15 MG PO; -SYMBICORT 16010.2 GM; +SYMBICORT 16010.2 GM INH; +ZITHROMAX TRI-500 MG PO
--- NOTE | 2018-08-29 10:05 | NUR ---
PATIENT CHECKED FOR HARMFUL OBJECTS ,DISROBED AND PLACED IN PAPER SCRUBS. BELONGINGS AND CLOTHING PLACED IN BAG AND PLACED AT NURSING STATION. PLACED ON 1 TO 1, SUICIDE PRECATIONS IN PLACE. ALL MEDICAL EQUIMENT AND CORDS REMOVED FROM ER ROOM. EDUCATED PATIENT ON SUDCIDE PRECAUTIONS AND THE CURENT PLAN OF CARE,VERBALIZED UNDERSTANDING.
--- NOTE | 2018-08-29 10:15 | NUR ---
PATIENT AMBULATORY BACK TO ER ROOM 10 WITH RN ASSISTANCE, PATIENT REPOSITIONED BACK IN BED FOR COMFORT, NO SIGNS OF ACUTE DISTRESS NOTED AT THIS TIME. RN CONTINUALLY AT BEDSIDE WITH PATIENT.
--- NOTE | 2018-08-29 10:15 | NUR ---
PATIENT AMBULATORY TO BATHROOM WITH RN ASSISTANCE FOR URINE SAMPLE, RN SUPERVISION IN BATHROOM. NO SIGNS OF ACUTE DISTRESS NOTED AT THIS TIME.
[2018-08-29] MEDS ORDERED: ALBUTEROL/IPRATROPIUM 3 ML NEB NEB ONE (10:45)
--- NOTE | 2018-08-29 10:48 | NUR ---
BREATHING TREATMENT IN PROGRESS, RN CONTINUALLY AT BEDSIDE.
[2018-08-29] MEDS ORDERED: PREDNISONE 20 MG TAB PO NR (11:00)
[2018-08-29 11:34] LABS: CLARITY,URINE CLEAR (CLEAR); COLOR,URINE YELLOW (YELLOW)
[2018-08-29 11:35] LABS: BILIRUBIN,URINE NEGATIVE (NEGATIVE); KETONES,URINE NEGATIVE (NEGATIVE); LEUKOCYTE ESTERASE ,URINE NEGATIVE (NEGATIVE); NITRITE,URINE NEGATIVE (NEGATIVE); PROTEIN,URINE DIPSTICK TRACE (NEGATIVE); URINE UROBILINOGEN 0.2 mg/dL (0.2 - 1)
[2018-08-29 11:36] LABS: AMPHETAMINES SCREEN,URINE NEGATIVE (NEGATIVE); BENZODIAZEPINES SCREEN,URINE POSITIVE (NEGATIVE); PHENCYCLIDINE SCREEN,URINE NEGATIVE (NEGATIVE)
[2018-08-29 11:40] LABS: EPITHELIAL CELLS,URINE MANY /LPF
--- NOTE | 2018-08-29 11:40 | NUR ---
JUSTINE LOPEZ AT BEDSIDE FOR IV START AND LAB DRAW. NO SIGNS OF ACUTE DISTRESS NOTED AT THIS TIME. PATIENT CALM AND COOPERATIVE. RN CONTINUALLY AT BEDSIDE WITH PATIENT.
[2018-08-29 11:41] LABS: RBC,URINE 0-5 /HPF (0-5); WBC,URINE (MAN) 0-5 /HPF (0-5)
[2018-08-29 11:42] LABS: BACTERIA,URINE RARE /HPF; HYALINE CASTS 0-1 (0-1)
--- NOTE | 2018-08-29 11:50 | Diagnostic Imaging Report ---
EXAMINATION: CHEST 2 VIEWS INDICATION: Shortness of breath. COMPARISON: Chest radiograph 08/22/[address] chest 07/13/2018. FINDINGS: TUBES and LINES: None. LUNGS: Mild patchy bibasilar opacities, corresponding to fibrotic changes noted on prior studies. No new consolidation or evidence of pulmonary edema. PLEURA: No pleural effusion or pneumothorax. HEART AND MEDIASTINUM: The cardiomediastinal silhouette is unremarkable. BONES AND SOFT TISSUES: No acute radiographic abnormality. There is mild vertebral body height loss in a mid thoracic vertebral body, present on prior CT. UPPER ABDOMEN: No free air under the diaphragm. Surgical clips are present in the upper abdomen. IMPRESSION: No acute radiographic abnormality. Signed by: Dr. Faizan Gaspar MD on 08/29/2018 11:47 AM
[2018-08-29 12:03] LABS: BASOPHILS % 0.3 % (0.0-1.0); EOSINOPHILS % 0.1 % (0.0-6.0); HEMATOCRIT 40.8 % (34.2-44.1); HEMOGLOBIN 12.8 g/dL (12.0-16.0); LYMPHOCYTES # (AUTO) 1.6 (1.0-3.2); LYMPHOCYTES % 11.5 % (18.0-39.1); MEAN CORPUSCULAR HEMOGLOBIN 26.6 pg (28-32); MEAN CORPUSCULAR HGB CONC 31.4 g/dL (31-35); MEAN CORPUSCULAR VOLUME 84.6 fL (81-99); MONOCYTES # (AUTO) 0.7 (0.2-0.8); MONOCYTES % 5.2 % (4.4-11.3); NEUTROPHILS # (AUTO) 11.2 (2.1-6.9); NEUTROPHILS % 81.8 % (38.7-80.0); PLATELET COUNT 224 x10e3/uL (140-360); RED BLOOD COUNT 4.82 x10e6/uL (3.6-5.1); RED CELL DISTRIBUTION WIDTH 15.4 % (11.7-14.4)
--- NOTE | 2018-08-29 12:16 | NUR ---
JUSTINE MANDEL AT BEDSIDE FOR 1 TO 1. EDUCATED TECH ON Q15 MIN DOCUMENTATION FOR SUICIDE PRECAUTIONS AND TO NUTIFY NURSE FOR ANY QUESTIONS OR CONCERNS,VERBALIZED UNDERSTANDING.
[2018-08-29 12:21] LABS: ALANINE AMINOTRANSFERASE 26 IU/L (0-55); ALBUMIN 4.1 g/dL (3.5-5.0); ALBUMIN/GLOBULIN RATIO 1.4 (0.8-2.0); ALKALINE PHOSPHATASE 75 IU/L (40-150); ANION GAP 14.2 mmol/L (8-16); BLOOD UREA NITROGEN 21 mg/dL (7-26); BUN/CREATININE RATIO 25 (6-25); CALCIUM 9.2 mg/dL (8.4-10.2); CARBON DIOXIDE 22 mmol/L (22-29); CHLORIDE 104 mmol/L (98-107); CREATININE, SERUM 0.84 mg/dL (0.57-1.11); EST GLOMERULAR FILTRATION RATE > 60 ML/MIN (60-); GLUCOSE 139 mg/dL (74-118); POTASSIUM 4.2 mmol/L (3.5-5.1); SODIUM 136 mmol/L (136-145)
[2018-08-29 12:48] LABS: ACETAMINOPHEN < 3 ug/mL (10-30); SALICYLATE < 5.0 mg/dL (0-30)
--- NOTE | 2018-08-29 13:00 | NUR ---
PATIENT AWAKE AND ALERT SITTING IN BED CALMLY. MINISTERIO MARIA AT BEDSIDE. NO SIGNS OF ACUTE DISTRESS NOTED AT THIS TIME.
--- NOTE | 2018-08-29 13:15 | NUR ---
NOTIFIED Matt SOLER NP GLUCOSE 143. NO NEW ORDERS NOTED.
--- NOTE | 2018-08-29 14:14 | NUR ---
NOTIFIED MAT TEAM PATIENT MEDICALLY CLEARED AND READY FOR PSYCH ASSESSMENT BY MAT, SPOKE WITH LING.
--- NOTE | 2018-08-29 14:19 | NUR ---
Matt SOLERDATA LEAD AT BEDSIDE FOR RE-EVAL AND DISCUSSING THE CURRENT PLAN OF CARE WITH PATIENT AND FAMILY. NO SIGNS OF ACUTE DISTRESS NOTED AT THIS TIME. PATIENT EATING SANDWHICH.
--- NOTE | 2018-08-29 14:34 | NUR ---
SPOKE WITH VICKEY KING TEAM REP, ETA 30 MIN
--- NOTE | 2018-08-29 15:12 | NUR ---
FERNANDO FROM MAT TEAM AT BEDSIDE FOR PATIENT EVAL
--- NOTE | 2018-08-29 16:00 | NUR ---
PATIENT AWAKE AND ALERT SITTING IN BED QUIETLY. MINISTERIO MARIA AT BEDSIDE. NO SIGNS OF ACUTE DISTRESS NOTED AT THIS TIME. DENIES ANY C/O AT THIS TIME. SON AT BEDSIDE.
--- NOTE | 2018-08-29 17:00 | NUR ---
PATIENT AWAKE AND ALERT EATING DINNER TRAY. NO SIGNS OF ACUTE DISTRESS NOTED AT THIS TIME. DENIES ANY C/O AT THIS TIME. SITTER CONTINUALLY AT BEDSIDE.
--- NOTE | 2018-08-29 17:50 | NUR ---
FAXED CLINICALS TO [facility], SPOKE WITH [place] THAT A FEMALE GERIATRIC BED WILL BE AVIALABLE TONIGHT.
[2018-08-29] MEDS ORDERED: ACETAMINOPHEN 325 MG TAB PO ONE (18:30)
--- NOTE | 2018-08-29 18:57 | NUR ---
VERBAL REPORT GIVEN TO JENNIFER PALMER.
--- NOTE | 2018-08-29 19:30 | NUR ---
PT AWAKE ALERT SKIN W/D RESP NONLAB, NAD NOTED. SITTER AT BEDSIDE
--- NOTE | 2018-08-29 20:22 | NUR ---
SPOKE TO [facility], STATES THEY DO NOT HAVE A BED AVAILABLE AND TOLD THE [facility] LOCATION THIS; [facility], SPOKE TO LIA, CONFIRMED THERE IS NOT A BED AVAILABLE IN [place] AT THIS TIME
[2018-08-29] MEDS ORDERED: INSULIN REGULAR, HUMAN 100 UNIT/1 ML 3ML VIAL SQ ONE (21:27)
--- NOTE | 2018-08-29 21:36 | NUR ---
[place] [facility] [place]
--- NOTE | 2018-08-29 22:09 | NUR ---
CALLED [facility] INTAKE AND VERIFIED RECEIPT OF CLINICALS
--- NOTE | 2018-08-29 22:09 | NUR ---
PT AWAKE ALERT RESP NONLAB, NAD NOTED. SITTER AT BEDSIDE, SITTING UP ON SIDE OF BED TALKING WITH FAMILY MEMBER.
--- NOTE | 2018-08-30 00:52 | NUR ---
PT GIVEN SANDWICH PER PT REQUEST
--- NOTE | 2018-08-30 01:02 | NUR ---
SITTER AT BEDSIDE, PT GIVEN SANDWICH PER PT REQUEST.
--- NOTE | 2018-08-30 01:03 | NUR ---
DAUGHTER - HARSHAL URBINA [phone]
--- NOTE | 2018-08-30 02:53 | NUR ---
called and spoke with intake a [facility] [place], states "No appropriate bed" for patient, when asked what that meant, he repeated back "No appropriated bed." Asked if this is because of no available bed at [facility] [place], be againg repeated back "No appropriate bed." asked what does no appropriate bed mean, it this a refusal, or no empty bed he then states "What does appropriate mean? What does it mean?" call was terminated, called back and spoke with Rica in intake department and she states transfer was declined because of patient pre-existing health conditions by the nurse when it was reviewed. Dr Ram aware of above.
--- NOTE | 2018-08-30 03:05 | NUR ---
called MAT team, awaiting to hear back from [facility]
--- NOTE | 2018-08-30 04:43 | NUR ---
pt awake alert skin w/d resp nonlab. nad noted. sitter at bedside
--- NOTE | 2018-08-30 05:12 | NUR ---
received call from MAT team, waiting to hear back from other facilities.
[2018-08-30] MEDS ORDERED: VENTOLIN HFA18 GM INH (05:19)
[2018-08-30] MEDS ORDERED: SERTRALINE HCL100 MG PO (05:19)
[2018-08-30] MEDS ORDERED: OXCARBAZEPINE150 MG PO (05:19)
[2018-08-30] MEDS ORDERED: ATORVASTATIN CA20 MG PO (05:19)
[2018-08-30] MEDS ORDERED: BUPROPION XL150 MG PO (05:19)
[2018-08-30] MEDS ORDERED: ALBUTEROL2.5 MG/3 M NEB (05:19)
[2018-08-30] MEDS ORDERED: TEMAZEPAM15 MG PO (05:19)
[2018-08-30] MEDS ORDERED: DEXTROSE 50% SYRINGE 50 ML IV PRN (05:30)
[2018-08-30] MEDS ORDERED: ALBUTEROL/IPRATROPIUM 3 ML NEB NEB PRN (05:30)
[2018-08-30] MEDS ORDERED: DICYCLOMINE HCL 20 MG TAB PO PRN (05:30)
--- NOTE | 2018-08-30 06:45 | NUR ---
RECEIVED REPORT FROM JENNIFER PALMER
[2018-08-30] MEDS ORDERED: BUDESONIDE/FORMOTEROL 160/4.5MCG INHALER INH SCH (07:00)
--- NOTE | 2018-08-30 08:56 | NUR ---
SPOKE WITH [facility] TEAM; INFORMED THAT THEY ARE STILL WORKING ON TRANSFER; STATED SHE WOULD CALL BACK IN 30MINS
[2018-08-30] MEDS ORDERED: PREDNISONE 20 MG TAB PO SCH (09:00)
[2018-08-30] MEDS ORDERED: GABAPENTIN 300 MG CAP PO SCH (09:00)
[2018-08-30] MEDS: INSULIN REGULAR, HUMAN 100 UNIT/1 ML 3ML VIAL SQ SCH ×2 (09:23→11:55)
--- NOTE | 2018-08-30 10:26 | NUR ---
SPOKE WITH ROSA IN INTAKE AT [facility] [place] @[phone]; CLINICALS BEING FAXED TO [phone]; AWAITING RESPONSE
--- NOTE | 2018-08-30 11:31 | NUR ---
SPOKE WITH ABUNDIO RN AT [facility] FOR NURSE TO NURSE REPORT; INFORMED THAT INFO WOULD BE RELAYED TO PSYCH TEAM AND WILL CALL BACK
--- NOTE | 2018-08-30 12:27 | NUR ---
spoke with JENNIFER Barry at [facility] for Nurse to Nurse report; informed that info would be relayed to Psych team and would return call for Doc to Doc
--- NOTE | 2018-08-30 12:45 | NUR ---
DR. HALL PERFORMED DOC TO DOC WITH [facility] AND [facility];
--- NOTE | 2018-08-30 13:29 | NUR ---
LIA SORTO CALLED BACK FOR NURSE TO NURSE REPORT; [phone]
--- NOTE | 2018-08-30 13:32 | NUR ---
ADMIN APPROVAL FOR ADOLFO RABAGO FROM [facility],
--- NOTE | 2018-08-30 13:48 | NUR ---
[facility] CONTACTED FOR TRANSPORT TO [facility]; ETA 35MINS
[2018-08-30 15:27] VITALS: BP 157/81
[2018-08-30] MEDS ORDERED: DONEPEZIL HCL 5 MG TAB PO SCH (21:00)
[2018-08-30] MEDS ORDERED: LISINOPRIL 2.5 MG TAB PO SCH (21:00)
== END 2018-08-30 15:31 ==
LOC: ER 09:17
DX: R45.851 Suicidal ideations (principal); F33.1 Major depressive disorder, recurrent, moderate; S60.812A Abrasion of left wrist, initial encounter; X78.1XXA Intentional self-harm by knife, initial encounter; Y92.008 Other place in unspecified non-institutional (private) residence as the place of occurrence of the external cause; E11.65 Type 2 diabetes mellitus with hyperglycemia; I10 Essential (primary) hypertension; J44.9 Chronic obstructive pulmonary disease, unspecified; F41.9 Anxiety disorder, unspecified; F31.9 Bipolar disorder, unspecified
CPT/HCPCS: 36415; 71046; 80053; 80307; 80329 ×2; 81001; 82948; 85025; 93005; 99284; J7512 ×2

== ENCOUNTER → 2019-01-27 | Outpatient (CLI) | payer MEDICARE ==
[~2019-01-27] MED LIST changes: +ALBUTEROL2.5 MG/3 M NEB; +OXCARBAZEPINE150 MG PO; +TEMAZEPAM15 MG PO; +VENTOLIN HFA18 GM INH
[2019-01-27 13:31] LABS: BLOOD UREA NITROGEN 10 mg/dL (7-26); BUN/CREATININE RATIO 13 (6-25); CREATININE, SERUM 0.76 mg/dL (0.57-1.11); EST GLOMERULAR FILTRATION RATE > 60 ML/MIN (60-)
--- NOTE | 2019-01-27 16:14 | Diagnostic Imaging Report ---
EXAM: CT Chest WITHOUT contrast 01/27/2019 12:23 PM INDICATION: ^[id number] ^[id number] ^COPD COMPARISON: Chest CT, 07/13/2018 TECHNIQUE: Chest was scanned utilizing a multidetector helical scanner from the lung apex through the level of the adrenal glands without administration of IV contrast. Absence of intravenous contrast decreases sensitivity for detection of lymphadenopathy and vascular pathology. Coronal and sagittal reformations were obtained. Routine protocol was performed. Dose modulation, iterative reconstruction, and/or weight based adjustment of the mA/kV was utilized to reduce the radiation dose to as low as reasonably achievable. IV CONTRAST: None RADIATION DOSE: Total DLP: 456.76 mGy*cm Estimated effective dose: (DLP x 0.014 x size factor) mSv COMPLICATIONS: None FINDINGS: LINES/ TUBES: None. LUNGS AND AIRWAYS: Stable advanced centrilobular and paraseptal emphysema with prominent peripheral bullae mainly in the upper lobes. Previously noted scattered groundglass opacities are less prominent. Previously noted 4 mm pleural nodule right lower lobe is demonstrated to represent a calcified granuloma on the current exam. There is stable subpleural reticulation in the lower lobes. Trachea and main bronchi are clear. Bilateral perihilar bronchial wall thickening is again noted. There is stable mild bronchiectasis in the right middle lobe. PLEURA: No pleural effusion, pleural calcification or pneumothorax. HEART AND MEDIASTINUM: The thyroid gland is normal. Evaluation of previously noted hilar adenopathy is suboptimal without contrast on the current exam. Current measurements based on the contours of the lymph nodes shows no obvious significant change. Previously noted precarinal and paratracheal nodes are stable. Calcified nodes in the mediastinum again noted. The heart is normal in size.. There is no pericardial effusion. Extensive coronary artery calcifications are again seen. The thoracic aorta is atherosclerotic with moderate calcified plaque extending into the brachiocephalic vessels. No dilatation of the thoracic aorta or main pulmonary artery. UPPER ABDOMEN: Included portions of the unenhanced liver unremarkable except for small calcified granuloma. Calcified granulomata are also seen in the spleen. Included portions of the unenhanced pancreas and adrenals show no focal abnormality. There is a 2.6 cm hypodensity at the medial upper pole left kidney with internal water density, compatible with renal cyst.. Surgical clips are seen in the gallbladder fossa. BONES: No acute or suspicious bony lesion. There is minimal loss of height in a midthoracic vertebral body which is stable. SOFT TISSUES: Superficial surrounding soft tissue unremarkable. IMPRESSION: 1. Stable advanced emphysematous changes in the lungs with multiple peripheral blebs and bullae. Previously noted scattered groundglass opacities appear improved which may represent improvement of infectious or inflammatory process, or possibly improvement of atelectasis. 2. Again noted is bilateral perihilar bronchial wall thickening with stable mild bronchiectasis in the right middle lobe and mild subpleural reticulation in the lung bases. This likely represents chronic bronchitis and mild fibrosis. 3. Stable small pleural-based right lower lobe nodule which now appears densely calcified compatible with granuloma. Calcified granulomatous lymph nodes are seen in the mediastinum and calcified granulomata are seen in the liver and spleen. 4. Previously described nodes in the right hilum, felt to be increasing in prominence on the previous exam, are suboptimally evaluated on the present noncontrast CT. While they appear grossly stable from previous exam, they may be more accurately evaluated on a contrast-enhanced examination. Other precarinal and paratracheal nodes in the mediastinum are stable. 5. Extensive coronary artery calcifications are seen. Signed by: Dr. Brennon Huff M.D. on 01/27/2019 4:11 PM
== END ==
LOC: CT 12:15
PROVIDERS: ATTEND Internal Medicine Critical Care Medicine
DX: J44.9 Chronic obstructive pulmonary disease, unspecified (principal)
CPT/HCPCS: 36415; 71250; 82565; 84520

== ENCOUNTER → 2019-03-13 | Outpatient (CLI) | payer OTHER, MEDICARE ==
--- NOTE | 2019-03-13 16:58 | Diagnostic Imaging Report ---
EXAMINATION: RIBS UNILAT W/CXR, CHEST 2 VIEWS INDICATION: Rib pain COMPARISON: Chest CT of 01/27/2019, chest radiograph of 08/29/2018 FINDINGS: LINES/TUBES:None LUNGS:The lungs are hyperinflated. Upper lobe predominant emphysematous changes. Bibasilar subsegmental atelectasis. No focal consolidation. PLEURA:No pleural effusion or pneumothorax. MEDIASTINUM:The cardiomediastinal silhouette appears normal in size and shape. BONES/SOFT TISSUES:No displaced rib fractures. ABDOMEN:No free air under the diaphragm. IMPRESSION: No displaced rib fracture. Hyperinflated lungs with emphysematous changes. No focal pneumonia or pulmonary edema. Signed by: Lili Traylor MD on 03/13/2019 4:55 PM
== END ==
LOC: RAD 16:05
PROVIDERS: ATTEND Internal Medicine Critical Care Medicine
DX: R07.89 Other chest pain (principal); R07.81 Pleurodynia
CPT/HCPCS: 71046; 71101

== ENCOUNTER 2020-04-19 15:39 | Observation (INO) | payer MEDICARE, OTHER ==
[~2020-04-19] VITALS: Ht 163.8 cm; Wt 62.1 kg
[2020-04-19 17:33] LABS: BASOPHILS # (AUTO) 0.1 (0.0-0.1); BASOPHILS % 0.4 % (0.0-1.0); EOSINOPHILS # (AUTO) 0.1 (0.0-0.4); EOSINOPHILS % 0.5 % (0.0-6.0); HEMATOCRIT 38.2 % (34.2-44.1); HEMOGLOBIN 12.1 g/dL (12.0-16.0); LYMPHOCYTES # (AUTO) 1.4 (1.0-3.2); LYMPHOCYTES % 11.1 % (18.0-39.1); MEAN CORPUSCULAR HGB CONC 31.7 g/dL (31-35); MONOCYTES # (AUTO) 0.8 (0.2-0.8); MONOCYTES % 6.4 % (4.4-11.3); NEUTROPHILS # (AUTO) 10.1 (2.1-6.9); NEUTROPHILS % 81.2 % (38.7-80.0); PLATELET COUNT 303 x10e3/uL (140-360); RED BLOOD COUNT 4.66 x10e6/uL (3.6-5.1); RED CELL DISTRIBUTION WIDTH 14.2 % (11.7-14.4)
[2020-04-19 17:49] LABS: ALANINE AMINOTRANSFERASE 16 IU/L (0-55); ALBUMIN 4.1 g/dL (3.5-5.0); ALBUMIN/GLOBULIN RATIO 1.5 (0.8-2.0); ALKALINE PHOSPHATASE 65 IU/L (40-150); ANION GAP 13.8 mmol/L (8-16); BLOOD UREA NITROGEN 11 mg/dL (7-26); BUN/CREATININE RATIO 15 (6-25); CALCIUM 9.2 mg/dL (8.4-10.2); CARBON DIOXIDE 23 mmol/L (22-29); CHLORIDE 107 mmol/L (98-107); CREATINE KINASE 74 IU/L (29-168); CREATININE, SERUM 0.72 mg/dL (0.57-1.11); EST GLOMERULAR FILTRATION RATE > 60 ML/MIN (60-); GLUCOSE 108 mg/dL (74-118); POTASSIUM 3.8 mmol/L (3.5-5.1); SODIUM 140 mmol/L (136-145)
[2020-04-19] MEDS ORDERED: HYDRALAZINE HCL 20 MG/ML VIAL IV STA (18:04)
--- NOTE | 2020-04-19 18:11 | Emergency Department Note ---
History of Present Illnes History of Present Illness Chief Complaint: COVID PUI History of Present Illness This is a 74 year old female acute onset of dyspnea today , Chest heaviness of 1 week duration. PAITÑO Historian: Patient Arrival Mode: Car Onset (how long ago): week(s) (1) Location: substernal Quality: heaviness Radiation: Reports non-radiation Severity: moderate Onset quality: gradual Duration (how long): week(s) (1) Timing of current episode: constant Progression: waxing and waning Chronicity: new Context: Denies recent illness Relieving factors: none Exacerbating factors: none Associated symptoms: Reports chest pain, Reports shortness of breath Treatments prior to arrival: none Past Medical/Family History Physician Review I have reviewed the patient's past medical and family history. Any updates have been documented here. Past Medical History Recent Fever: No Clinical Suspicion of Infectio: No New/Unexplained Change in Ment: No Past Medical History: Hypertension, Diabetes, COPD Other Medical History: Bipolar (depression) anxiety IBS Past Surgical History: Appendectomy, Hysterectomy Other Surgery: colon resection back surgery LASIK EYE SURGERY BILAT LEFT HIP REPLACEMENT RIGHT KNEE REPLACEMENT colostomy colostomy reversal Social History Smoking Cessation: Never Smoker Counseling Performed: No Alcohol Use: None Any Illegal Drug Use: No Other Last Tetanus: UTD Any Pre-Existing Lines (PICC,: No Review of Systems Review of Systems Constitutional: Reports no symptoms EENTM: Reports no symptoms Cardiovascular: Reports chest pain Respiratory: Reports dyspnea Gastrointestinal: Reports no symptoms Genitourinary: Reports no symptoms Musculoskeletal: Reports no symptoms Integumentary: Reports no symptoms Neurological: Reports no symptoms Psychological: Reports no symptoms Endocrine: Reports no symptoms Hematological/Lymphatic: Reports no symptoms Physical Exam Related Data Allergies: Coded Allergies: Penicillins (Verified Allergy, Mild, ITCHING, RASH, 04/19/20) Triage Vital Signs Vital Signs Date Time Temp Pulse Resp B/P (MAP) Pulse Ox O2 Delivery O2 Flow Rate FiO2 04/19/20 16:14 96.9 88 22 180/120 97 Room Air Vital signs reviewed: Yes Physical Exam CONSTITUTIONAL Constitutional: Present well-developed, Present well-nourished HENT HENT: Present normocephalic, Present atraumatic, Present oropharynx clear/moist, Present nose normal HENT L/R: Present left ext ear normal, Present right ext ear normal EYES Eyes: Reports PERRL, Reports conjunctivae normal NECK Neck: Present ROM normal PULMONARY Pulmonary: Present effort normal, Present breath sounds normal CARDIOVASCULAR Cardiovascular: Present regular rhythm, Present heart sounds normal, Present capillary refill normal, Present normal rate GASTROINTESTINAL Abdominal: Present soft, Present nontender, Present bowel sounds normal GENITOURINARY Genitourinary: Present exam deferred SKIN Skin: Present warm, Present dry MUSCULOSKELETAL Musculoskeletal: Present ROM normal NEUROLOGICAL Neurological: Present alert, Present oriented x 3, Present no gross motor or sensory deficits PSYCHOLOGICAL Psychological: Present mood/affect normal, Present judgement normal Results Laboratory Result Diagram: 04/19/208 04/19/208 Laboratory Laboratory Tests Test 04/19/20 17:18 White Blood Count 12.44 x10e3/uL (4.8-10.8) Red Blood Count 4.66 x10e6/uL (3.6-5.1) Hemoglobin 12.1 g/dL (12.0-16.0) Hematocrit 38.2 % (34.2-44.1) Mean Corpuscular Volume 82.0 fL (81-99) Mean Corpuscular Hemoglobin 26.0 pg (28-32) Mean Corpuscular Hemoglobin Concent 31.7 g/dL (31-35) Red Cell Distribution Width 14.2 % (11.7-14.4) Platelet Count 303 x10e3/uL (140-360) Neutrophils (%) (Auto) 81.2 % (38.7-80.0) Lymphocytes (%) (Auto) 11.1 % (18.0-39.1) Monocytes (%) (Auto) 6.4 % (4.4-11.3) Eosinophils (%) (Auto) 0.5 % (0.0-6.0) Basophils (%) (Auto) 0.4 % (0.0-1.0) Neutrophils # (Auto) 10.1 (2.1-6.9) Lymphocytes # (Auto) 1.4 (1.0-3.2) Monocytes # (Auto) 0.8 (0.2-0.8) Eosinophils # (Auto) 0.1 (0.0-0.4) Basophils # (Auto) 0.1 (0.0-0.1) Absolute Immature Granulocyte (auto 0.05 x10e3/uL (0-0.1) Sodium Level 140 mmol/L (136-145) Potassium Level 3.8 mmol/L (3.5-5.1) Chloride Level 107 mmol/L (98-107) Carbon Dioxide Level 23 mmol/L (22-29) Anion Gap 13.8 mmol/L (8-16) Blood Urea Nitrogen 11 mg/dL (7-26) Creatinine 0.72 mg/dL (0.57-1.11) Estimat Glomerular Filtration Rate > 60 ML/MIN (60-) BUN/Creatinine Ratio 15 (6-25) Glucose Level 108 mg/dL (74-118) Calcium Level 9.2 mg/dL (8.4-10.2) Total Bilirubin 0.3 mg/dL (0.2-1.2) Aspartate Amino Transf (AST/SGOT) 13 IU/L (5-34) Alanine Aminotransferase (ALT/SGPT) 16 IU/L (0-55) Alkaline Phosphatase 65 IU/L (40-150) Creatine Kinase 74 IU/L (29-168) Creatine Kinase MB 1.90 ng/mL (0-5.0) Troponin I 0.008 ng/mL (0-0.300) B-Type Natriuretic Peptide 53.4 pg/mL (0-100) Total Protein 6.9 g/dL (6.5-8.1) Albumin 4.1 g/dL (3.5-5.0) Globulin 2.8 g/dL (2.3-3.5) Albumin/Globulin Ratio 1.5 (0.8-2.0) Imaging Imaging results reviewed: Yes Impressions [place] [address] Patient Name: GIOVANA FINNEY MR #: [id number] : 1945 Age/Sex: 74/F Req #: [id number] Adm Physician: VANESSA AVINA MD Ordered by: KARIME VELASQUEZ DO Report #: [id number] Location: [facility] Room/Bed: [place] [address] Procedure: [id number] DX/CHEST SINGLE (PORTABLE) Exam Date: 04/19/20 Exam Time: 1631 REPORT STATUS: Signed EXAMINATION: CHEST SINGLE (PORTABLE) INDICATION: Chest pain COMPARISON: Multiple prior chest radiograph including most recent on 03/13/2019. Chest CT on 01/27/2019. FINDINGS: TUBES and LINES: None. LUNGS: Hyperinflated lungs. There are prominent interstitial lung markings throughout both lungs. There is bibasilar atelectasis. No consolidations. PLEURA: No pleural effusion or pneumothorax. HEART AND MEDIASTINUM: The cardiomediastinal silhouette is unremarkable. There are atherosclerotic calcifications within the aorta. BONES AND SOFT TISSUES: Degenerative changes in the spine and shoulders. Soft tissues are unremarkable. UPPER ABDOMEN: No free air under the diaphragm. IMPRESSION: Changes of pulmonary emphysema with prominent interstitial lung markings which can be seen with reactive airway disease or bronchitis. Signed by: Rachelle Garland MD on 04/19/2020 6:59 PM Dictated By: RACHELLE GARLAND MD 58 Transcribed By: RUSS on 04/19/201858 COPY TO: KARIME VELASQUEZ DO~ Procedures 12 Lead ECG Interpretation ECG Interpretation : ECG: ECG 1 Arcade Game Technician: Interpreted by ED physician Date: Apr 19, 2020 Time: 18:56 Prior ECG tracings: reviewed Rhythm: sinus rhythm Rate: normal BPM: 90 QRS axis: normal ST segments normal: Yes T waves normal: Yes Clinical Impression: normal ECG Clinical Decision Tools HEART Score HEART Score: HEART Score Response (Comments) Value History Moderately suspicious 1 EKG Normal 0 Age 45 - 65 1 Risk factors no risk factors 0 Troponin < or = to normal limit Total 2 Assessment & Plan Medical Decision Making MDM Diff Dx : COPD, CHF, ACS Assessment & Plan Final Impression: (1) Chest pain Depart Disposition: ADMITTED Last Vital Signs Date Time Temp Pulse Resp B/P (MAP) Pulse Ox O2 Delivery O2 Flow Rate FiO2 04/19/20 16:14 96.9 88 22 180/120 97 Room Air Home Meds Reported Medications Sertraline Hcl (SERTRALINE HCL) 100 Mg Tablet, 100 MG PO BID 08/30/18 Bupropion Hcl (BUPROPION XL) 150 Mg Tab.er.24h, 150 MG PO DAILY 08/30/18 Albuterol Sulfate (VENTOLIN HFA) 18 Gm Hfa.aer.ad, 2 SPR INH Q4HR PRN for SHORTNESS OF BREATH 08/30/18 Albuterol Sulfate (ALBUTEROL SULFATE) 2.5 Mg/3 Ml Vial.neb, 3 ML NEB Q4HR PRN for SHORTNESS OF BREATH 08/30/18 Atorvastatin Calcium (ATORVASTATIN CALCIUM) 20 Mg Tablet, 20 MG PO DAILY 08/30/18 Prednisone (PREDNISONE) 20 Mg Tab, 20 MG PO DAILY, TAB 08/23/18 Lisinopril (LISINOPRIL) 2.5 Mg Tablet, 5 MG PO HS, #30 TAB 07/13/18 Trazodone Hcl (TRAZODONE HCL) 50 Mg Tablet, 100 MG PO HS, #30 TAB 07/13/18 Donepezil Hcl (ARICEPT) 5 Mg Tablet, 10 MG PO HS, #60 TAB 07/13/18 Budesonide/Formoterol Fumarate (SYMBICORT 160-4.5 MCG INHALER) 10.2 Gm Hfa.aer.ad, 1 SPR INH BID 02/20/18 Gabapentin (GABAPENTIN) 300 Mg Capsule, 300 MG PO TID, #60 CAP 02/19/18 Metformin Hcl (METFORMIN HCL) 500 Mg Tablet, 500 MG PO BID, #60 TAB 12/28/17 Dicyclomine Hcl (DICYCLOMINE HCL) 20 Mg Tablet, 20 MG PO TID PRN for ABDOMINAL PAIN, TAB 12/28/17 Medications in the ED Hydralazine HCl 10 mg NOW STAT IV ; Start 04/19/20 at 18:04; Stop 04/19/20 at 18:06; Status LINDSAY RENAE DO Apr 19, 2020 18:11
[2020-04-19] MEDS ORDERED: ONDANSETRON HCL INJ 2MG/ML 2ML 2 MG/ML VIAL IV PRN (18:30)
[2020-04-19] MEDS ORDERED: ASPIRIN 81 MG CHEW TAB PO ONE (18:30)
[2020-04-19] MEDS ORDERED: MORPHINE SULFATE INJ 4 MG/ML INJ 1ML IV PRN (18:30)
--- NOTE | 2020-04-19 19:02 | Diagnostic Imaging Report ---
EXAMINATION: CHEST SINGLE (PORTABLE) INDICATION: Chest pain COMPARISON: Multiple prior chest radiograph including most recent on 03/13/2019. Chest CT on 01/27/2019. FINDINGS: TUBES and LINES: None. LUNGS: Hyperinflated lungs. There are prominent interstitial lung markings throughout both lungs. There is bibasilar atelectasis. No consolidations. PLEURA: No pleural effusion or pneumothorax. HEART AND MEDIASTINUM: The cardiomediastinal silhouette is unremarkable. There are atherosclerotic calcifications within the aorta. BONES AND SOFT TISSUES: Degenerative changes in the spine and shoulders. Soft tissues are unremarkable. UPPER ABDOMEN: No free air under the diaphragm. IMPRESSION: Changes of pulmonary emphysema with prominent interstitial lung markings which can be seen with reactive airway disease or bronchitis. Signed by: Chadwick Renteria MD on 04/19/2020 6:59 PM
[2020-04-19] MEDS ORDERED: METHYLPREDNISOLONE SOD SUCC 125 MG/2ML VIAL IV STA (20:12)
[2020-04-19] MEDS ORDERED: ALBUTEROL/IPRATROPIUM 3 ML NEB NEB STA ×2 (20:12)
[2020-04-19] MEDS ORDERED: DEXTROSE 50% SYRINGE 50 ML IV PRN (20:45)
[2020-04-19] MEDS ORDERED: ALBUTEROL SULF 0.083% NEB SOLN 3 ML NEB NEB PRN (20:45)
[2020-04-19] MEDS ORDERED: BENZONATATE 100 MG CAP PO PRN (20:45)
[2020-04-19] MEDS ORDERED: HYDRALAZINE HCL 25 MG TAB PO PRN (21:00)
[2020-04-19] MEDS: CEFTRIAXONE SOD 1 GM/NS 50 ML 50 ML IV SCH (21:45)
[2020-04-19] MEDS ORDERED: LISINOPRIL 2.5 MG TAB ONE (21:48)
[2020-04-19] MEDS ORDERED: GABAPENTIN 300 MG CAP ONE (21:48)
[2020-04-19] MEDS ORDERED: TRAZODONE HCL 50 MG TAB ONE (21:49)
[2020-04-19] MEDS ORDERED: DONEPEZIL HCL 5 MG TAB ONE (21:49)
[2020-04-19] MEDS ORDERED: AZITHROMYCIN 500MG/NS 250 ML 250 ML ONE (21:49)
[2020-04-19] MEDS ORDERED: CEFTRIAXONE SOD 1 GM/NS 50 ML 50 ML IV ONE (21:49)
[2020-04-19] MEDS ORDERED: PROMETHAZINE 12.5MG/ NACL 0.9% 12.5 MG/50 ML BAG IV ONE (22:00)
[2020-04-19] MEDS ORDERED: PROMETHAZINE 25MG/SOD CHL 0.9% 50 ML IV ONE (22:09)
[2020-04-19] MEDS: ALBUTEROL/IPRATROPIUM 3 ML NEB NEB SCH (22:18)
[2020-04-19] MEDS: METHYLPREDNISOLONE SOD SUCC 40 MG/ML VIAL 1ML IV SCH (22:19)
[2020-04-19] MEDS: AZITHROMYCIN 500MG/NS 250 ML 250 ML IV SCH (22:25)
--- NOTE | 2020-04-19 22:40 | NUR ---
RECEIVED REPORT FROM FELICE, ER NURSE. PATIENT ARRIVED VIA STRETCHER. PATIENT HAS EXPIRATORY WHEEZING. CALL LIGHT WITHIN REACH. PATIENT'S BELONGINGS WITH HER.
[2020-04-19 23:10] VITALS: BP 149/79
--- NOTE | 2020-04-19 23:30 | NUR ---
PATIENT'S IV WITH CATH WAS TAKEN OUT
[2020-04-19] MEDS: INSULIN LISPRO 100 UNIT/1 ML 3ML VIAL SQ SCH (23:39)
[2020-04-19] MEDS: TRAZODONE HCL 50 MG TAB PO SCH (23:42)
[2020-04-19] MEDS: LISINOPRIL 2.5 MG TAB PO SCH (23:42)
[2020-04-19] MEDS: DONEPEZIL HCL 5 MG TAB PO SCH (23:42)
[2020-04-19] MEDS: GABAPENTIN 300 MG CAP PO SCH (23:42)
[2020-04-19 23:52] VITALS: BP 149/79
[2020-04-19] MEDS ORDERED: INFLUENZA VIRUS VAC SPLIT INJ 0.5 ML SYR IM SCH (23:52)
[2020-04-19] MEDS ORDERED: PNEUMOCOCCAL VACCINE POLYVALENT 23 MCG/0.5 ML VIAL IM SCH (23:52)
[2020-04-19 23:56] VITALS: BP 149/79
[2020-04-20] MEDS: ALBUTEROL/IPRATROPIUM 3 ML NEB NEB SCH ×4 (02:02→19:00)
[2020-04-20 02:34] LABS: CREATINE KINASE MB 1.5 ng/mL (0-5.0)
[2020-04-20 04:00] VITALS: BP 140/70
[2020-04-20 05:20] LABS: BASOPHILS % 0.1 % (0.0-1.0); HEMATOCRIT 37.5 % (34.2-44.1); HEMOGLOBIN 11.7 g/dL (12.0-16.0); LYMPHOCYTES # (AUTO) 0.6 (1.0-3.2); LYMPHOCYTES % 6.5 % (18.0-39.1); MEAN CORPUSCULAR HEMOGLOBIN 26.5 pg (28-32); MEAN CORPUSCULAR HGB CONC 31.2 g/dL (31-35); MEAN CORPUSCULAR VOLUME 84.8 fL (81-99); MONOCYTES # (AUTO) 0.1 (0.2-0.8); NEUTROPHILS # (AUTO) 8.2 (2.1-6.9); NEUTROPHILS % 92.1 % (38.7-80.0); PLATELET COUNT 260 x10e3/uL (140-360); RED BLOOD COUNT 4.42 x10e6/uL (3.6-5.1); RED CELL DISTRIBUTION WIDTH 14.3 % (11.7-14.4)
[2020-04-20 05:38] LABS: ALANINE AMINOTRANSFERASE 15 IU/L (0-55); ALBUMIN 3.6 g/dL (3.5-5.0); ALBUMIN/GLOBULIN RATIO 1.2 (0.8-2.0); ALKALINE PHOSPHATASE 61 IU/L (40-150); ANION GAP 13.3 mmol/L (8-16); BLOOD UREA NITROGEN 16 mg/dL (7-26); BUN/CREATININE RATIO 19 (6-25); CARBON DIOXIDE 25 mmol/L (22-29); CHLORIDE 108 mmol/L (98-107); CREATININE, SERUM 0.83 mg/dL (0.57-1.11); EST GLOMERULAR FILTRATION RATE > 60 ML/MIN (60-); GLUCOSE 202 mg/dL (74-118); POTASSIUM 4.3 mmol/L (3.5-5.1); SODIUM 142 mmol/L (136-145)
[2020-04-20] MEDS: METHYLPREDNISOLONE SOD SUCC 40 MG/ML VIAL 1ML IV SCH ×3 (05:59→22:28)
[2020-04-20 06:59] LABS: LYMPHOCYTES % (MANUAL) 3 % (19-48); MONOCYTES % (MANUAL) 1 % (3.4-9.0); NEUTROPHILS % (MANUAL) 95 % (40-74); PLATELET ESTIMATE ADEQUATE; PLATELET MORPHOLOGY COMMENT RARE EDTA CLUMPING; RBC MORPHOLOGY COMMENT NORMAL
--- NOTE | 2020-04-20 07:20 | NUR ---
GAVE BEDSIDE SHIFT REPORT TO ONCOMING NURSE. CALL LIGHT WITHIN REACH. PATIENT IN BED. HOURLY ROUNDING PERFORMED.
[2020-04-20] MEDS: INSULIN LISPRO 100 UNIT/1 ML 3ML VIAL SQ SCH ×4 (07:30→21:15)
--- NOTE | 2020-04-20 07:45 | NUR ---
PATIENT IN BED RESTING WITH NO S/S OF DISTRESS, O2 IN PLACE VIA N/C. BED IN LOWER POSITION, CALL LIGHT AT [facility].
[2020-04-20 07:50] VITALS: BP 101/64
[2020-04-20] MEDS: DICYCLOMINE HCL 20 MG TAB PO SCH ×3 (08:00→16:39)
[2020-04-20 08:30] VITALS: BP 101/69
[2020-04-20] MEDS: BUDESONIDE/FORMOTEROL 160/4.5MCG INHALER INH SCH ×2 (09:00→19:00)
[2020-04-20] MEDS: ATORVASTATIN 20 MG TAB PO SCH (09:20)
[2020-04-20] MEDS: BUPROPION HCL 150 MG TABCR PO SCH (09:20)
[2020-04-20] MEDS: SERTRALINE HCL 100 MG TAB PO SCH ×2 (09:20→17:03)
[2020-04-20] MEDS: GABAPENTIN 300 MG CAP PO SCH ×3 (09:20→20:44)
--- NOTE | 2020-04-20 11:31 | NUR ---
PATIENT ASSISTED TO BED SIDE COMMODE AND BACK TO BED. VOIDED LARGE AMOUNT OF CLEAR YELLOW URINE. CALL LIGHT AT REACH.
--- NOTE | 2020-04-20 11:45 | NUR ---
DAY 1 OBS CHEST PAIN SENT TO R1 FOR LOC DETERMINATION
[2020-04-20 11:55] LABS: CREATINE KINASE MB 1.4 ng/mL (0-5.0)
[2020-04-20 12:05] VITALS: BP 109/74
[2020-04-20] MEDS ORDERED: REGADENOSON 0.4 MG/5 ML SYR IV ONE (12:54)
--- NOTE | 2020-04-20 14:15 | NUR ---
PATIENT OFF UNIT FOR A PROCEDURE.
--- NOTE | 2020-04-20 16:39 | NUR ---
PATIENT BACK TO UNIT FROM NUCLEAR MEDICINE. HAD A STRESS TEST. NO IV ACCESS NOTED. NEW IV 20 GAUGE INSERTED TO RIGHT WRIST, PATIENT TOLERATED PROCEDURE WELL. ALL SCHEDULED MEDICATIONS ADMINISTERED ORDERED. IN BED TALKING TO HER DAUGHTER VISITING. CALL LIGHT AT REACH.
[2020-04-20 20:00] VITALS: BP 108/55
[2020-04-20 20:40] VITALS: BP 108/55
[2020-04-20] MEDS ORDERED: SODIUM CHLORIDE 0.9% 250ML 250 ML ONE (20:42)
[2020-04-20] MEDS: CEFTRIAXONE SOD 1 GM/NS 50 ML 50 ML IV SCH (20:44)
[2020-04-20] MEDS: TRAZODONE HCL 50 MG TAB PO SCH (20:44)
[2020-04-20] MEDS: LISINOPRIL 2.5 MG TAB PO SCH (20:44)
[2020-04-20] MEDS: DONEPEZIL HCL 5 MG TAB PO SCH (20:44)
[2020-04-20] MEDS: AZITHROMYCIN 500MG/NS 250 ML 250 ML IV SCH (22:29)
--- NOTE | 2020-04-20 22:48 | Consultation ---
DATE OF CONSULTATION: Cardiology Consult HISTORY OF PRESENT ILLNESS: This is a 74-year-old female with past medical history of hypertension, diabetes, COPD, anxiety and bipolar disorder, admitted complaining of substernal chest pain, accompanied with dyspnea, 5/10 intensity, radiated to her right arm, lasted for 5 to 10 minutes. The patient also reports fatigue and chest heaviness for about a week now. No exacerbating factors. No relieving factors. The patient also denies any dizziness, no diaphoresis nor any nausea or vomiting. REVIEW OF SYSTEMS: A detailed 12-point review of systems was performed and was negative except as noted in HPI above. MEDICAL HISTORY: Hypertension, diabetes, COPD, anxiety, bipolar disorder, IBS. SURGICAL HISTORY: Appendectomy, hysterectomy, colon resection, back surgery, LASIK eye surgery, left hip replacement, right knee replacement, and colostomy reversal. FAMILY HISTORY: Significant for heart disease, diabetes, and lung cancer. Father had lung cancer. Mother had NH and hypertension. SOCIAL HISTORY: Denies smoking, EtOH, or illicit drug use. HOME MEDICATIONS: Lisinopril 5 mg p.o. daily, metformin 500 mg p.o. b.i.d., atorvastatin 20 mg p.o. daily, gabapentin 300 mg t.i.d., sertraline 100 mg b.i.d., trazodone 100 mg at bedtime, prednisone 20 mg daily, Aricept 10 mg p.o. daily, albuterol inhalation, Symbicort inhalation, and dicyclomine 20 mg p.o. t.i.d. PHYSICAL EXAMINATION: VITAL SIGNS: Include temperature 98.4, pulse of 88, respirations of 18, blood pressure 109/74, pulse oximetry 98% on 2 L nasal cannula. GENERAL: The patient is well developed, well nourished, in no acute respiratory distress. SKIN: Normal in appearance, texture, and temperature. Warm and dry. HEENT: The patient cranium is normocephalic and atraumatic. Pupils are equally round and reactive to light and accommodation. Sclerae anicteric. Ears are normal. Mucosa is moist. Throat is clear. NECK: Supple. Full range of motion. No cervical lymphadenopathy. No thyromegaly. The carotid artery upstroke is normal bilaterally without bruits. No JVD. RESPIRATORY: Dyspneic on exertion. LUNGS: Diminished breath sounds throughout lung morris. Decreased air entry at the bases. CARDIOVASCULAR: S1 and S2 is audible. Regular rate and rhythm. No significant murmurs heard on auscultation. GI: Soft, nontender, nondistended. Bowel sounds present. EXTREMITIES: No cyanosis, no clubbing, no edema. NEUROVASCULAR: Motor is intact. Pulses are palpable 2+ throughout. NEUROLOGIC: Motor and sensory examination of the upper and lower extremities are normal. Reflexes are normal and symmetrical bilaterally. LABORATORY DATA: WBC 12.44, hemoglobin 12.1, hematocrit 38.2, and platelets 303. Sodium 142, potassium 4.3, BUN 16, creatinine 0.83. CK 52, 39; CK-MB 1.50, 1.40; troponin 0.008, 0.020, 0.008. IMAGING: Chest x-ray impression, changes of pulmonary emphysema with prominent interstitial lung markings, which can be seen with reactive airway disease or bronchitis. EKG; NSR, nonischemic/no ST changes, LVH. ASSESSMENT: 1. Atypical chest pain. 2. Chronic obstructive pulmonary disease exacerbation. 3. Past medical history of hypertension and diabetes. 4. History of anxiety/bipolar disorder. PLAN: 1. Continue telemetry and vital signs monitoring. 2. Echocardiogram to evaluate valves and LV functioning. 3. COPD exacerbation treatment per [facility]. 4. Nuclear/Lexiscan stress test to evaluate ischemia. Thank you for this consultation. Further recommendation will follow according to the patient's clinical course and pending echocardiogram and stress test. Dictated by Sarah Sanchez NP MD SH[place]ON [place]/GULSHAN /[id number]
[2020-04-21] VITALS: BP 113/61
[2020-04-21] MEDS: ALBUTEROL/IPRATROPIUM 3 ML NEB NEB SCH ×2 (00:11→07:15)
[2020-04-21] MEDS ORDERED: ACETAMINOPHEN 325 MG TAB PO PRN (00:15)
--- NOTE | 2020-04-21 00:30 | NUR ---
PATIENT'S IV IN RIGHT FOREARM BECAME INFILTRATED. FLUIDS WERE STOPPED AND RIGHT ARM WAS ELEVATED WITH COLD COMPRESS. IV REMOVED AND PATIENT REFUSED TO RECEIVE ANOTHER IV SITE, DR. AVINA WAS NOTIFIED AND CONTINUING TO MONITOR SITE.
[2020-04-21 04:00] VITALS: BP 123/58
[2020-04-21] MEDS: METHYLPREDNISOLONE SOD SUCC 40 MG/ML VIAL 1ML IV SCH (06:00)
[2020-04-21] MEDS: BUDESONIDE/FORMOTEROL 160/4.5MCG INHALER INH SCH (07:00)
--- NOTE | 2020-04-21 07:18 | NUR ---
PATIENT SITTING UP IN BED WITH NO DISTRESS, O2 IN PLACE VIA N/C. NO IV ACCESS NOTED, PATIENT REFUSED A NEW IV TO BE INSERTED. BED IN LOWER POSITION, CALL LIGHT AT REACH.
[2020-04-21 07:38] VITALS: BP 118/58
[2020-04-21 07:42] VITALS: BP 118/58
[2020-04-21] MEDS ORDERED: REGADENOSON 0.4 MG/5 ML SYR IV ONE (08:28)
[2020-04-21] MEDS: INSULIN LISPRO 100 UNIT/1 ML 3ML VIAL SQ SCH (08:30)
[2020-04-21] MEDS: GABAPENTIN 300 MG CAP PO SCH (09:34)
[2020-04-21] MEDS: SERTRALINE HCL 100 MG TAB PO SCH (09:34)
[2020-04-21] MEDS: ATORVASTATIN 20 MG TAB PO SCH (09:34)
[2020-04-21] MEDS: DICYCLOMINE HCL 20 MG TAB PO SCH (09:34)
[2020-04-21] MEDS: BUPROPION HCL 150 MG TABCR PO SCH (09:34)
[2020-04-21] MEDS ORDERED: DOXYCYCLINE HYCLATE TABLET 100 MG TAB PO ONE (09:45)
[2020-04-21] MEDS ORDERED: TRIAMCINOLONE ACET 40 MG/ML VIAL IM ONE (10:00)
[2020-04-21] MEDS ORDERED: PREDNISONE20 MG PO (10:18)
[2020-04-21] MEDS ORDERED: DOXYCYCLINE HY100 MG PO (10:20)
--- NOTE | 2020-04-21 10:20 | NUR ---
FLU AND PNEUMONIA VACCINE OFFERED, PATIENT REFUSED.
[2020-04-21] MEDS ORDERED: TESSALON PERLE100 MG (10:21)
--- NOTE | 2020-04-21 10:50 | NUR ---
PATIENT DISCHARGED HOME. DISCHARGE INSTRUCTIONS, PRESCRIPTIONS, AND FOLLOW UP GIVEN TO PATIENT AND DAUGHTER, THEY VERBALIZED UNDERSTANDING. ALL PERSONAL ITEMS TAKEN WITH PATIENT. LEFT UNIT PER WHEEL CHAIR TO FRONT LOBBY IN STABLE CONDITION.
--- NOTE | 2020-04-21 11:01 | Discharge Summary ---
PRIMARY CARE PHYSICIAN: Dr. Khari Mcgee. The patient on observation. FINAL DIAGNOSES: 1. Acute exacerbation of chronic obstructive pulmonary disease. 2. Acute bronchitis. 3. Cough with chest pain and negative cardiac enzyme. HOSPITAL COURSE: The patient is a 74 years old female came to the hospital with chest discomfort after she was coughing and wheezing. The patient has acute exacerbation of chronic obstructive pulmonary disease. The patient was given medication, she is doing much better. At this time she is stable. She want to go home and I agreed. Discharged home to resume her home medication. Prescription including prednisone 20 mg daily for 10 days, doxycycline 100 mg b.i.d. for 15 days, Tessalon Perles 100 mg q.6 hours as needed for cough. The patient does want to go home and she refused any cardiac workup at this time. The patient is stable, discharged home. Followup with Dr. Eddie Siddiqui if needed. MD KAT Carrera/GULSHAN /[id number]
[2020-04-21] MEDS ORDERED: AZITHROMYCIN 250 MG TAB PO SCH (22:00)
--- OUTSIDE RECORDS SUMMARY | 2020-04-22 18:47 | XMS REPORT | Continuity of Care Document ---
Author Author Mikel Barnes [employer], GIOVANA JACKSON Organization [facility] Address Unknown Phone Unavailable Care Team Providers Care Ms Access Database Developer Name Role Phone [facility] Unavailable Un available Problems Problem Status Onset Date Classification Date Reported Comments Source Insomnia due to other mental disorder Active Problem [facility] Major depressive disorder, Recurrent episode, Severe Active Problem 04/13/2020 [facility] Unspecified anxiety disorder A ctive Problem [facility] Medications Medication Details Route Status Patient Instructions Ordering Provider Order Date Source BuPROPion HCl (SR) 1 tablet in the morning and 1 tablet early afternoon, not after 3pm Orally Active 150 MG Orally as direct ed [place] 11/28/2019 [facility] BusPIRone HCl 1 tablet Orally Active 5 MG Orally Three times a day [place] 09/03/2019 [facility] BuPROPion HCl (SR) 1 tablet in the morning Orally Active 150 MG Orally Once a day [place] 07/24/2019 [facility] Trintellix 1 tablet Orally Active 10 MG Orally Once a day [place] 04/28/2019 [facility] Metformin HCl 1 tablet with a meal Orally Active 500 MG Orally twice a day [facility] Trintellix 1 tablet Orally Active 20 MG Orally Once a day [facility] Rosuvastatin Calcium 1 tablet Orally Active 5 MG Orally Once a day [facility] Trazodone HCl 1 1/2-2 tablets at bedtime as needed Orally Active 100 MG Orally Once a day [facility] BuPROPion HCl (SR) 1 tablet in the morning and 1 tablet early afternoon, not after 3pm Orally Active 200 MG Orally as direct ed [facility] Atorvastatin Calcium not defin ed NA Active [facility] BusPIRone HCl 1 tablet Orally Active 5 MG Orally Three times a day [facility] Fluticasone Propionate not def ined NA Active [facility] Metformin HCl not defined NA Active [facility] BuPROPion HCl (XL) 1 tablet in the morning Orally Active 150 MG Orally Once a day [facility] Sertraline HCl 2 tablets Orally Active 100 MG Orally Once a da y [facility] Trintellix 1 tablet Orally Active 10 MG Orally Once a day [place] Marlyn rodriguez [facility] BuPROPion HCl (SR) 2 tablets i n the morning Orally Active 150 MG Orally Once a day [facility] Allergies, Adverse Reactions, Alerts Substance Category Reaction Severity Reaction type Status Date Reported Comments Source N.K.D.A. Adverse Reaction Info Not Available Adverse Reaction 04/28/2019 [facility] Immunizations No Data Provided for This Section Results No Data Provided for This Section Pathology Reports No Data Provided for This Section Diagnostic Reports No Data Provided for This Section Consultation Notes No Data Provided for This Section Discharge Summaries No Data Provided for This Section History and Physicals No Data Provided for This Section Vital Signs Vital Sign Value Date Comments Source Weight 142 01/29/2020 [facility] Weight 135 12/30/2019 [facility] Weight 140 11/28/2019 [facility] Weight 140 10/31/2019 [facility] Weight 136.2 07/24/2019 [facility] Height 64 0 07/24/2019 [facility] Heart Rate 105 07/24/2019 [facility] Diastolic (mm Hg) 80 07/24/2019 [facility] Systolic (mm Hg) 176 07/24/2019 [facility] Weight 141.6 06/23/2019 [facility] Height 64 0 06/23/2019 [facility] Heart Rate 87 06/23/2019 [facility] Diastolic (mm Hg) 80 06/23/2019 [facility] Systolic (mm Hg) 191 06/23/2019 [facility] Encounters No Data Provided for This Section Procedures No Data Provided for This Section Assessment and Plan No Data Provided for This Section Plan of Care No Data Provided for This Section Social History No Data Provided for This Section Family History No Data Provided for This Section Advance Directives No Data Provided for This Section Functional Status No Data Provided for This Section
--- OUTSIDE RECORDS SUMMARY | 2020-04-22 18:47 | XMS REPORT | Continuity of Care Document ---
Author Author [facility] t Organization [facility] Address [facility] [address] [place] [address] Phone Unavailable Care Team Providers Care Wire Splicer Name Role Phone SHEKHAR MUNOZ MD PCP VANESSA AVINA Attphys Unavailable MARILU WAITE Attphys Unavailable Whit GAMBOA Attphys Unavailable HOLLIOk CAZARES Attphys Unavailable BAN LAGOS Attphys Unavailable VANESSA AVINA Admphys Unavailable RAVINDRAMARILU Admphys Unavailable Payers Payer Name Policy Type Policy Number Effective Date Expiration Date Romain pizarro [facility] [id number] 2018 00:00:00 [facility] [employer] Medicare Advantage [id number] [facility] [place] [id number] 2018 00:00:00 [facility] Problems Condition Name Condition Details Condition Category Status Onset Date Resolution Date Last Treatment Date Treating Clinician Comments Source Confusion Confusion Problem Active [facility] Hypokalemia Hypokalemia Problem Active [facility] Seizure Seizure Problem Active [facility] Chest pain Chest pain Problem Active [facility] Hypertension Hypertension Problem Active [facility] 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 Active Problem 04/13/2020 [facility] Problem Active 2020-04-13 02:45:09 Janett Barnes Major depressive disorder, Recurrent episode, Severe Major depressive disorder, Recurrent episode, Severe Active Problem 04/13/2020 [facility] Problem Active 2020-04-13 02:45:09 Mikel Barnes Unspecified anxiety disorder U nspecified anxiety disorder Active Problem 04/13/2020 [facility] Problem Active 2020-04-13 02:45:09 Mikel Barnes Allergies, Adverse Reactions, Alerts Allergy Name Allergy Type Status Severity Reaction(s) Onset Date Inacti ve Date Treating Clinician Comments Source KimberliA. NRao Active Info Not Available 2019-04-28 00:[facility] All[facility] to Substance Active Mild ITCHING, RASH 2017-02-19 00:00:00 [facility] Medications Ordered Medication Name Filled Medication Name Start Date Stop Da te Current Medication? Ordering Clinician Indication Dosage Frequency Signature (SIG) Comments Components Source Trazodone HCl 2020-04-13 02:45:09 Yes Aye Cruzan 1 1/2-2 tablets at bedtime as needed [facility] Atorvastatin Calcium 2020-04-13 02:45:09 Yes Aye maean not defined [facility] Fluticasone Propionate 2020-04-13 02:45:09 Yes Aye ortizan not defined [facility] Metformin HCl 2020-04-13 02:45:09 Yes Aye Cruzan not defined [facility] BuPROPion HCl (XL) 2020-04-13 02:45:09 Yes Aye Cruz an 1 tablet in the morning [facility] Sertraline HCl 2020-04-13 02:45:09 Yes Aye Harriskman 2 tablets [facility] Metformin HCl 2020-02-03 02:45:56 Yes Aye Cruzan 1 tablet with a meal [facility] Trintellix 2020-02-03 02:45:56 Yes Aye Harriskman 1 tablet [facility] Rosuvastatin Calcium 2020-02-03 02:45:56 Yes Aye Harriskman 1 tablet [facility] BuPROPion HCl (SR) 2020-02-03 02:45:56 Yes Aye Harriskm an 1 tablet in the morning and 1 tablet early afternoon, not after 3pm [facility] BusPIRone HCl 2020-02-03 02:45:56 Yes Aye Adames 1 tablet [facility] BuPROPion HCl (SR) 2020-02-03 02:45:54 Yes Ayegage Harriskm an 2 tablets in the morning [facility] Trintellix 2020-02-03 02:45:47 Yes Aye Adames 1 tablet [facility] BuPROPion HCl (SR) 2019-11-28 00:00:00 Yes Aye Cruz an 1 tablet in the morning and 1 tablet early afternoon, not after 3pm [facility] BusPIRone HCl 2019-09-03 00:00:00 Yes Aye Cruzan 1 tablet [facility] BuPROPion HCl (SR) 2019-07-24 00:00:00 Yes Aye Cruz an 1 tablet in the morning [facility] Trintellix 2019-04-28 00:00:00 Yes Aye Cruzan 1 tablet [facility] Aspirin 325 Mg Tablet, 325 Mg Oral Aspirin 325 Mg Tablet, 32 5 Mg Oral 2018-01-01 00:00:00 2018-02-19 00:00:00 No Horacio Riley Pa 325 Twice A Day [facility] Albuterol Sulfate 2.5 Mg/3 Ml Vial.neb Albuterol Sulfate 2.5 Mg/ 3 Ml Vial.neb Yes 3 Every 4 Hours as needed for Shor tness Of Breath [facility] Albuterol Sulfate (Ventolin Hfa) 18 Gm Hfa.aer.ad Albu terol Sulfate (Ventolin Hfa) 18 Gm Hfa.aer.ad Yes 2 Ev felix 4 Hours as needed for Shortness Of Breath [facility] Atorvastatin Calcium 20 Mg Tablet Atorvastatin Calcium 20 Mg Tablet Yes 20 Daily [facility] Budesonide/Formoterol Fumarate (Symbicor t 160-4.5 Mcg Inhaler) 10.2 Gm Hfa.aer.ad Budesonide/Formoterol Fumarate (Symbicor t 160-4.5 Mcg Inhaler) 10.2 Gm Hfa.aer.ad Yes 1 Twice A Day [facility] Bupropion Hcl (Bupropion Xl) 150 Mg Tab.er.24h Bupropi on Hcl (Bupropion Xl) 150 Mg Tab.er.24h Yes 150 Daily [facility] Dicyclomine Hcl 20 Mg Tablet Dicyclomine Hcl 20 Mg Tablet Y es 20 Three Times A Day as needed for Abdominal Pain [facility] Donepezil Hcl (Aricept) 5 Mg Tablet Donepezil Hcl (Aricept) 5 Mg Tabl et Yes 10 Bedtime [facility] Gabapentin 300 Mg Capsule Gabapentin 300 Mg Capsule Yes 300 Three Times A Day [facility] Lisinopril 2.5 Mg Tablet Lisinopril 2.5 Mg Tablet Yes 5 Bedtime [facility] Metformin Hcl 500 Mg Tablet Metformin Hcl 500 Mg Tablet Yes 500 Twice A Day [facility] Prednisone 20 Mg Tab Prednisone 20 Mg Tab Yes [address] [facility] Sertraline Hcl 100 Mg Tablet Sertraline Hcl 100 Mg Tablet Y es 100 Twice A Day [facility] Trazodone Hcl 50 Mg Tablet Trazodone Hcl 50 Mg Tablet Yes 100 Bedtime [facility] Levofloxacin (Levaquin) 250 Mg Tablet, 250 Mg Oral Lev ofloxacin (Levaquin) 250 Mg Tablet, 250 Mg Oral 2018-08-22 00:00:00 No 250 D aily [facility] Atorvastatin Calcium 20 Mg Tablet, 20 Mg Oral Atorvast atin Calcium 20 Mg Tablet, 20 Mg Oral 2018-07-15 00:00:00 No [address] [facility] Bupropion Hcl 100 Mg Tablet, 150 Mg Oral Bupropion Hcl 100 Mg Tablet, 150 Mg Oral 2018-07-15 00:00:00 No [address] [facility] Fluoxetine Hcl 20 Mg Tablet, 20 Mg Oral Fluoxetine Hcl 20 Mg Tablet, 20 Mg Oral 2018-07-15 00:00:00 No [address] [facility] Oxcarbazepine 150 Mg Tablet, 150 Oxcarbazepine 150 Mg Tablet, 15 0 2018-07-15 00:00:00 No 150 Twice A Day [facility] Prednisone 20 Mg Tab, 20 Mg Oral Prednisone 20 Mg Tab, 20 Mg Ora l 2018-07-15 00:00:00 No 20 Twice A Day [facility] Sertraline Hcl 100 Mg Tablet, 100 Mg Oral Sertraline H cl 100 Mg Tablet, 100 Mg Oral 2018-07-15 00:00:00 No 100 Bedtime [facility] Bupropion Hcl (Bupropion Xl) 150 Mg Tab.er.24h, 150 Mg Oral Bupropion Hcl (Bupropion Xl) 150 Mg Tab.er.24h, 150 Mg Oral 2018-02-19 00:00:00 No 150 Daily [facility] Calcium Carb & Cit/Vitamin D3 (Citracal + D Er Tablet) 1 Each Tablet.er, 1 Tab Oral Calcium Carb & Cit/Vitamin D3 (Citracal + D Er Tablet) 1 Each Tablet.er, 1 Tab Oral 2018-02-19 00:00:00 No 1 Daily [facility] Citalopram Hydrobromide (Citalopram Hbr) 20 Mg Tablet, 20 Mg Oral Citalopram Hydrobromide (Citalopram Hbr) 20 Mg Tablet, 20 Mg Oral 00:00:00 No 20 Daily [facility] Donepezil Hcl (Aricept) 5 Mg Tablet, 10 Mg Oral Donepe zil Hcl (Aricept) 5 Mg Tablet, 10 Mg Oral 2018-02-19 00:00:00 No 10 Bedti me [facility] Eszopiclone (Lunesta) 2 Mg Tablet, 2 Mg Oral Eszopiclo ne (Lunesta) 2 Mg Tablet, 2 Mg Oral 2018-02-19 00:00:00 No 2 Bedtime [facility] Sertraline Hcl 100 Mg Tablet, 100 Mg Oral Sertraline H cl 100 Mg Tablet, 100 Mg Oral 2018-02-19 00:00:00 No 100 Twice A Day [facility] Trazodone Hcl 50 Mg Tablet, 100 Mg Oral Trazodone Hcl 50 Mg Tablet, 100 Mg Oral 2018-02-19 00:00:00 No 100 Daily [facility] Cholecalciferol (Vitamin D3) (Decara) 25,000 Unit Caps ule, 17723 Units Oral Cholecalciferol (Vitamin D3) (Decara) 25,000 Unit Capsule, 06893 Units Oral 2017-12-28 00:00:00 No [address]355 .qweek [facility] Lamotrigine 100 Mg Tablet, 25 Mg Oral Lamotrigine 100 Mg Tablet, 25 Mg Oral 2017-12-28 00:00:00 No 25 Daily [facility] Quetiapine Fumarate 100 Mg Tablet, 100 Mg Oral Quetiap ine Fumarate 100 Mg Tablet, 100 Mg Oral 2017-12-28 00:00:00 No 100 Tess y [facility] Duloxetine Hcl (Cymbalta) 30 Mg Capsule.dr, 60 Mg Oral Duloxetine Hcl (Cymbalta) 30 Mg Capsule.dr, 60 Mg Oral 2016-04-27 00:00:00 No 60 Daily [facility] Gemfibrozil (Lopid) 600 Mg Tablet, 600 Mg Oral Gemfibr ozil (Lopid) 600 Mg Tablet, 600 Mg Oral 2016-04-27 00:00:00 No 600 Rt B id [facility] Topiramate 100 Mg Tablet, 100 Mg Oral Topiramate 100 Mg Tablet, 100 Mg Oral 2016-04-27 00:00:00 No 100 Daily [facility] Amlodipine Besylate 5 Mg Tablet, 5 Mg Oral Amlodipine Besylate 5 Mg Tablet, 5 Mg Oral 2014-08-07 00:00:00 No 5 Twice A Day [facility] Benztropine Mesylate (Cogentin) 1 Mg/1 Ml Amp, Benztro pine Mesylate (Cogentin) 1 Mg/1 Ml Amp, 2014-08-07 00:00:00 No Twice A Day [facility] Hydrocodone Bit/Acetaminophen (Sloan 10-325 Tablet) 1 Each Tablet, 1 Tab Oral Hydrocodone Bit/Acetaminophen (Sloan 10-325 Tablet) 1 Each Tablet, 1 Tab Oral 2014-08-07 00:00:00 No 1 Every 6 Hours [facility] Levothyroxine Sodium (Levoxyl) 25 Mcg Tablet, 25 Mcg O ral Levothyroxine Sodium (Levoxyl) 25 Mcg Tablet, 25 Mcg Oral 2014-08-07 00:00:00 No 25 Daily [facility] Morphine Sulfate (Morphine Sulfate Er) 15 Mg Tablet.er , 15 Mg Oral Morphine Sulfate (Morphine Sulfate Er) 15 Mg Tablet.er, 15 Mg Oral 20 02-08-19 00:00:00 No 15 Every 12 Hours [facility] Paroxetine Mesylate (Pexeva) 30 Mg Tablet, 30 Mg Oral Paroxetine Mesylate (Pexeva) 30 Mg Tablet, 30 Mg Oral 2014-08-07 00:00:00 No 30 Daily [facility] Quetiapine Fumarate 50 Mg Tablet, 50 Mg Oral Quetiapin e Fumarate 50 Mg Tablet, 50 Mg Oral 2014-08-07 00:00:00 No 50 Bedtime [facility] Amlodipine Bes/Olmesartan Med (Stephanie 5-20 Mg Tablet) 1 Each Tablet, Oral Amlodipine Bes/Olmesartan Med (Stephanie 5-20 Mg Tablet) 1 Each Tablet, Oral 2013-07-24 00:00:00 No Twice A Day [facility] Hydrocodone Bit/Acetaminophen (Co-Gesic 5-500 Tablet) 1 Each Tablet, Oral Hydrocodone Bit/Acetaminophen (Co-Gesic 5-500 Tablet) 1 Each Tablet, Oral 2013-07-24 00:00:00 No Every 6 Hours [facility] Linzess , 290 Mcg Oral Linzess , 290 Mcg Oral 2013-07-24 00:00:0 0 No 290 Daily [facility] Trazodone Hcl 100 Mg Tablet, 100 Mg Oral Trazodone Hcl 100 Mg Tablet, 100 Mg Oral 2013-07-24 00:00:00 No 100 Four Times Daily [facility] Benztropine Mesylate 1 Mg Tablet, 1 Mg Oral Benztropin e Mesylate 1 Mg Tablet, 1 Mg Oral 2013-06-19 00:00:00 No 1 Bedtime [facility] Hydrocodone Bit/Acetaminophen (Hydrocodo n-Acetaminophn 10-325) 1 Each Tablet, 10 - 325 Mg Oral Hydrocodone Bit/Acetaminophen (Hydrocodo n-Acetaminophn 10-325) 1 Each Tablet, 10 - 325 Mg Oral 2013-06-19 00:00:00 No Daily [facility] Lamotrigine (Lamictal) 100 Mg Tablet, 100 Mg Oral Lamo trigine (Lamictal) 100 Mg Tablet, 100 Mg Oral 2013-06-19 00:00:00 No 100 Rt B id [facility] Morphine Sulfate (Ms Contin) 60 Mg Tablet.sa, 30 Mg Or al Morphine Sulfate (Ms Contin) 60 Mg Tablet.sa, 30 Mg Oral 2013-06-19 00:00:00 No 30 Twice A Day [facility] Omeprazole 40 Mg Capsule., 40 Mg Oral Omeprazole 40 Mg Cap kadie.dr, 40 Mg Oral 2013-06-19 00:00:00 No [address] [facility] Paroxetine Hcl (Paxil) 30 Mg Tablet, 30 Mg Oral Paroxe taiwo Hcl (Paxil) 30 Mg Tablet, 30 Mg Oral 2013-06-19 00:00:00 No 30 Rt Da everett [facility] Polyethylene Glycol 3350 (Miralax) 17 Gm Powd.pack, 17 Gm Oral Polyethylene Glycol 3350 (Miralax) 17 Gm Powd.pack, 17 Gm Oral 2013-06-19 00:00:00 No [address] [facility] Quetiapine Fumarate 25 Mg Tablet, 25 Mg Oral Quetiapin e Fumarate 25 Mg Tablet, 25 Mg Oral 2013-06-19 00:00:00 No [address] [facility] Sennosides/Docusate Sodium (Senokot-S Tablet) 1 Each T ablet, 2 Tab Oral Sennosides/Docusate Sodium (Senokot-S Tablet) 1 Each Tablet, 2 Tab Oral 2013-06-19 00:00:00 No [address] [facility] Vital Signs Vital Name Observation Time Observation Value Comments Source Weight 2020-01-29 19:15:00 [facility] Weight 2019-12-30 19:15:00 [facility] Weight 2019-11-28 15:45:00 [facility] Weight 2019-10-31 16:00:00 [facility] Weight 2019-07-24 17:45:00 [facility] Height 2019-07-24 17:45:00 [facility] Heart Rate 2019-07-24 17:45:00 [facility] Diastolic (mm Hg) 2019-07-24 17:45:00 [facility] [place] Systolic (mm Hg) 2019-07-24 [facility]:45[facility]23 21:30:00 [facility] [place] Height 2019-06-23 21:30:00 [facility] [place] Heart Rate 2019-06-23 21:30:00 [facility] Diastolic (mm Hg) 2019-06-23 21:30:00 [facility] [place] Systolic (mm Hg) 2019-06-23 21:30:00 [facility] [place] Procedures Procedure Date / Time Performed Performing Clinician [facility] e X-ray of chest, two views 2018-08-29 00:00:00 SMILEY SOLER [facility] X-ray of chest, two views 2018-08-22 00:00:00 SMILEY SOLER [facility] X-ray of chest, two views 2018-07-13 00:00:00 MARILU WAITE CH [facility] Computed tomography of chest with contrast 2018-07-13 00:00:00 H MARILU CARDONA [facility] Computed tomography of chest with contrast 2018-02-19 00:00: 00 JANIE DE LA GARZA [facility] REPLACE L HIP JT W CERAMIC ON POLY, CEMENT, OPEN 2017-12-31 00:00:00 BAN LAGOS [facility] X-ray of chest, two views 2017-12-28 00:00:00 LUIZA LOPES CH, I [facility] Encounters Start Date/Time End Date/Time [facility] ID Source 2020-01-29 14:15:00 2020-01-29 14:15:00 Outpatient NIECY SAAVEDRA [id number] [employer] 2019-12-30 14:15:00 2019-12-30 14:15:00 Outpatient NIECY SAAVEDRA [id number] [employer] 2019-11-28 10:45:00 2019-11-28 10:45:00 Outpatient NIECY SAAVEDRA [id number] [employer] 2019-10-31 11:00:00 2019-10-31 11:00:00 Outpatient NIECY SAAVEDRA [id number] [employer] 2019-10-01 11:00:00 2019-10-01 11:00:00 Outpatient NIECY SAAVEDRA [id number] [employer] 2019-09-03 11:30:00 2019-09-03 11:30:00 Outpatient NIECY SAAVEDRA [id number] [employer] 2019-07-24 12:45:00 2019-07-24 12:45:00 Outpatient NIECY SAAVEDAR [id number] [employer] 2019-06-23 16:30:00 2019-06-23 16:30:00 Outpatient NIECY SAAVEDRA [id number] [employer] 2019-05-09 16:00:00 2019-05-09 16:00:00 Outpatient NIECY SAAVEDRA [id number] [employer] 2019-04-28 14:00:00 2019-04-28 14:00:00 Outpatient NIECY ZAYAS [place] [id number] [employer] 2018-08-29 09:17:00 2018-08-30 15:31:00 Departed Emergency Room 1 BRAXTONSILVIANO AKIKO [facility] [id number] [facility] 2018-08-22 14:57:00 2018-08-23 18:52:00 Discharged Inpatient (obs) 1 JANIE DE LA GARZA [facility] [id number] [facility] 2018-07-13 10:04:00 2018-07-15 10:12:00 Discharged Inpatient (obs) 3 RAVINDRAMARILU [facility] [id number] [facility] 2018-02-19 19:20:00 2018-02-20 11:54:00 Discharged Inpatient (obs) 1 VANESSA AVINA [facility] [id number] [facility] 2017-12-31 09:46:00 2018-01-01 16:09:00 Discharged Inpatient 3 YOLIS BAN [facility] [id number] [facility] Results Test Description Test Time Test Comments Results Result Comments Source CHEST SINGLE (PORTABLE) 2020-04-19 18:57:00 [facility] 1945 Sex: F [place] [address] Patient Name: GIOVANA FINNEY MR #: [id number] : 1945 Age/Sex: 74/F Req #: [id number] [facility] Physician: VANESSA AVINA MD Ordered by: KARIME VELASQUEZ DO Report #: [id number] Location: [facility] Room/Bed: [place] [address] Procedure: [id number] DX/CHEST SINGLE (PORTABLE) Exam Date: 04/19/20 Exam Time: 1631 REPORT STATUS: Signed EXAMINATION: CHEST SINGLE (PORTABLE) INDICATION: Chest pain COMPARISON: Multiple prior chest radiograph including most recent on 03/13/2019. Chest CT on 01/27/2019. FINDINGS: TUBES and LINES: None. LUNGS: Hyperinflated lungs. There are prominent interstitial lung markings throughout both lungs. There is bibasilar atelectasis. No consolidations. PLEURA: No pleural effusion or pneumothorax. HEART AND MEDIASTINUM: The cardiomediastinal silhouette is unremarkable. There are atherosclerotic calcifications within the aorta. BONES AND SOFT TISSUES: Degenerative changes in the spine and shoulders. Soft tissues are unremarkable. UPPER ABDOMEN: No free air under the diaphragm. IMPRESSION: Changes of pulmonary emphysema with prominent interstitial lung markings which can be seen with reactive airway disease or bronchitis. Signed by: Chadwick Garland MD on 04/19/2020 6:59 PM Dictated By: CHADWICK GARLAND MD 58 Transcribed By: RUSS on 04/19/201858 COPY TO: KARIME VELASQUEZ DO CHEST 2 VIEWS 2019-03-13 16:51:00 [place] [address] Patient Name: GIOVANA FINNEY MR #: [id number] : 1945 Age/Sex: 73/F Req #: [id number] Adm Physician: Ordered by: MARILU WAITE MD Report #: [id number] Location: [facility] Room/Bed: Procedure: [id number] DX/CHEST 2 VIEWS Exam Date: 03/13/19 Exam Time: 1630 REPORT STATUS: Signed EXAMINATION: RIBS UNILAT W/CXR, CHEST 2 VIEWS INDICATION: Rib pain COMPARISON: Chest CT of 01/27/2019, chest radiograph of 08/29/2018 FINDINGS: LINES/TUBES:None LUNGS:The lungs are hyperinflated. Upper lobe predominant emphysematous changes. Bibasilar subsegmental atelectasis. No focal consolidation. PLEURA:No pleural effusion or pneumothorax. MEDIASTINUM:The cardiomediastinal silhouette appears normal in size and shape. BONES/SOFT TISSUES:No displaced rib fractures. ABDOMEN:No free air under the diaphragm. IMPRESSION: No displaced rib fracture. Hyperinflated lungs with emphysematous changes. No focal pneumonia or pulmonary edema. Signed by: Jose Meade MD on 03/13/2019 4:55 PM Dictated By: JOSE MEADE MD 54 Transcribed By: RUSS on 03/13/191654 COPY TO: MARILU WAITE MD RIBS UNILAT W/CXR 2019-03-13 16:51:00 [place] [address] Patient Name: GIOVANA FINNEY MR #: [id number] : 1945 Age/Sex: 73/F Req #: [id number] Adm Physician: Ordered by: MARILU WAITE MD Report #: [id number] Location: [facility] Room/Bed: Procedure: [id number] DX/RIBS UNILAT W/CXR Exam Date: 03/13/19 Exam Time: 1630 REPORT STATUS: Signed EXAMINATION: RIBS UNILAT W/CXR, CHEST 2 VIEWS INDICATION: Rib pain COMPARISON: Chest CT of 01/27/2019, chest radiograph of 08/29/2018 FINDINGS: LINES/TUBES:None LUNGS:The lungs are hyperinflated. Upper lobe predominant emphysematous changes. Bibasilar subsegmental atelectasis. No focal consolidation. PLEURA:No pleural effusion or pneumothorax. MEDIASTINUM:The cardiomediastinal silhouette appears normal in size and shape. BONES/SOFT TISSUES:No displaced rib fractures. ABDOMEN:No free air under the diaphragm. IMPRESSION: No displaced rib fracture. Hyperinflated lungs with emphysematous changes. No focal pneumonia or pulmonary edema. Signed by: Jose Meade MD on 03/13/2019 4:55 PM Dictated By: JOSE MEADE MD 54 Transcribed By: RUSS on 03/13/191654 COPY TO: MARILU WAITE MD CT CHEST WO 2019-01-27 15:50:00 [place] [address] Patient Name: GIOVANA FINNEY MR #: [id number] : 1945 Age/Sex: 73/F Req #: [id number] Adm Physician: Ordered by: MARILU WAITE MD Report #: [id number] Location: CT Room/Bed: Procedure: [id number] CT/CT CHEST WO Exam Date: 01/27/19 Exam Time: 1414 REPORT STATUS: Signed EXAM: CT Chest WITHOUT contrast 01/27/2019 12:23 PM INDICATION: [id number] COPD COMPARISON: Chest CT, 07/13/2018 TECHNIQUE: Chest was scanned utilizing a multidetector helical scanner from the lung apex through the level of the adrenal glands without administration of IV contrast. Absence of intravenous contrast decreases sensitivity for detection of lymphadenopathy and vascular pathology. Coronal and sagittal reformations were obtained. Routine protocol was performed. Dose modulation, iterative reconstruction, and/or weight based adjustment of the mA/kV was utilized to reduce the radiation dose to as low as reasonably a chievable. IV CONTRAST: None RADIATION DOSE: Total DLP: 456.76 mGy*cm Estimated effective dose: (DLP x 0.014 x size factor) mSv COMPLICATIONS: None FINDINGS: LINES/ TUBES: None. LUNGS AND AIRWAYS: Stable advanced centrilobular and paraseptal emphysema with prominent peripheral bullae mainly in the upper lobes. Previously noted scattered groundglass opacities are less prominent. Previously noted 4 mm pleural nodule right lower lobe is demonstrated to represent a calcified granuloma on the current exam. There is stable wang bpleural reticulation in the lower lobes. Trachea and main bronchi are clear. Bilateral perihilar bronchial wall thickening is again noted. There is stable mild bronchiectasis in the right middle lobe. PLEURA: No pleural effusion, pleural calcification or pneumothorax. HEART AND MEDIASTINUM: The thyroid gland is normal. Evaluation of previously noted hilar adenopathy is suboptimal without contrast on the current exam. Current measurements based on the contours of the lymph nodes shows no obvious significant change. Previously noted precarinal and paratracheal nodes are stable. Calcified nodes in the mediastinum again noted. The heart is normal in size.. There is no pericardial effusion. Extensive coronary artery calcifications are again seen. The thoracic aorta is atherosclerotic with moderate calcified plaque extending into the brachiocephalic vessels. No dilatation of the thoracic aorta or main pulmonary artery. UPPER ABDOMEN: Included portions of the unenhanced liver unremarkable except for small calcified granuloma. Calcified granulomata are also seen in the spleen. Included portions of the unenhanced pancreas and adrenals show no focal abnormality. There is a 2.6 cm hypodensity at the medial upper pole left kidney with internal water density, compatible with renal cyst.. Surgical clips are seen in the gallbladder fossa. BONES : No acute or suspicious bony lesion. There is minimal loss of height in a midthoracic vertebral body which is stable. SOFT TISSUES: Superficial surrounding soft tissue unremarkable. IMPRESSION: 1. Stable advanced emphysematous changes in the lungs with multiple peripheral blebs and bullae. Previously noted scattered groundglass opacities appear improved which may represent improvement of infectious or inflammatory process, or possibly improvement of atelectasis. 2. Again noted is bilateral perihilar bronchial wall thickening with stable mild bronchiectasis in the right middle lobe and mild subpleural reticulation in the lung bases. This likely represents chronic bronchitis and mild fibrosis. 3. Stable small pleural-based right lower lobe nodule which now appears densely calcified compatible with granuloma. Calcified granulomatous lymph nodes are seen in the mediastinum and calcified granulomata are seen in the liver and spleen. 4. Previously described nodes in the right hilum, felt to be increasing in prominence on the previous exam, are suboptimally evaluated on the present noncontrast CT. While they appear grossly stable from previous exam, they may be more accurately evaluated on a contrast-enhanced examination. Other precarinal and paratracheal nodes in the mediastinum are stable. 5. Extensive coronary artery calcifications are seen. Signed by: Dr. Akiko Huff M.D. on 01/27/2019 4:11 PM Dictated By: AKIKO HUFF MD 161 Transcribed By: RUSS on 01/27/19 1611 COPY TO: MARILU WAITE MD Bedside Glucose 2018-08-30 09:12:00 Test Item Bedside Glucose (test code = 85592-1) 227 70-120 H Meter ID: [id number] Hospital AtascosaAcetaminophen Level 2018-08-29 12:48:00* Test Item Value Reference Range Interpretation Comments Acetaminophen Level (test code = 28180-0) < 3 10-30 [facility]ates Gnapn9442-36-17 12:48:00* Test Item Value Reference Range Interpretation Comments Salicylates Level (test code = 4024-6) < 5.0 0-30 [facility]Allenodium Fsrgd8438-75-37 12:33:00* Test Item Value Reference Range Interpretation Comments Sodium Level (test code = 2951-2) 136 136-145 [facility]aPotassium Gnokj4734-51-41 12:33:00* Test Item Value Reference Range Interpretation Comments Potassium Level (test code = 2823-3) 4.2 3.5-5.1 [facility]aChloride Dgoej1649-83-07 12:33:00* Test Item Value Reference Range Interpretation Comments Chloride Level (test code = 2075-0) 104 98-107 [facility]aCarbon Dioxide Omolo6834-25-32 12:33:00* Test Item Value Reference Range Interpretation Comments Carbon Dioxide Level (test code = 2028-9) 22 22-29 [facility]aAnion Qen9911-72-57 12:33:00* Test Item Value Reference Range Interpretation Comments Anion Gap (test code = 66945-0) 14.2 8-16 [facility]aBlood Urea Eszafbch2884-98-96 12:33:00* Test Item Value Reference Range Interpretation Comments Blood Urea Nitrogen (test code = 3094-0) 21 7-26 [facility]aCreatinine2019-03-14 12:33:00* Test Item Value Reference Range Interpretation Comments Creatinine (test code = 2160-0) 0.84 0.57-1.11 [facility]aBUN/Creatinine Uxwcx2640-67-33 12:33:00* Test Item Value Reference Range Interpretation Comments BUN/Creatinine Ratio (test code = 3097-3) 25 6-25 [facility]aEstimat Glomerular Filtration Rate 2018-08-29 12:33:00* Test Item Value Reference Range Interpretation Comments Estimat Glomerular Filtration Rate (test code = 608582086) > 60 >60 Ranges were taken from the National Kidney Disease Education Program and the [facility] Foundation literature.Reference ranges:60 or greater: Yhefuy39-56 ( for 3 consecutive months): Chronic kidney disease 15 or less: Kidney failureMethodist Hospital AtascosaGlucose Tgsle9860-47-82 12:33:00* Test Item Value Reference Range Interpretation Comments Glucose Level (test code = CKT6907) 139 74-118 H [facility]aCalcium Tivjn5290-40-23 12:33:00* Test Item Value Reference Range Interpretation Comments Calcium Level (test code = 75808-5) 9.2 8.4-10.2 [facility]aTotal Swxrkkkcc2056-85-36 12:33:00* Test Item Value Reference Range Interpretation Comments Total Bilirubin (test code = 1975-2) 0.4 0.2-1.2 [facility]cosaAspartate Amino Transf (AST/SGOT) 2018-08-29 12:33:00* Test Item Value Reference Range Interpretation Comments Aspartate Amino Transf (AST/SGOT) (test code = Aspartate Amino Transf (AST/SGOT)) 18 5-34 [facility]aAlanine Aminotransferase (ALT/SGPT) 2018-08-29 12:33:00* Test Item Value Reference Range Interpretation Comments Alanine Aminotransferase (ALT/SGPT) (test code = 1742-6) 26 0-55 [facility]aTotal Ezvwqbh2455-13-61 12:33:00* Test Item Value Reference Range Interpretation Comments Total Protein (test code = 2885-2) 7.0 6.5-8.1 [facility]aAlbumin2019-03-14 12:33:00* Test Item Value Reference Range Interpretation Comments Albumin (test code = 1751-7) 4.1 3.5-5.0 [facility]aGlobulin2019-03-14 12:33:00* Test Item Value Reference Range Interpretation Comments Globulin (test code = 10779-2) 2.9 2.3-3.5 [facility]aAlbumin/Globulin Yiacb6410-90-34 12:33:00 * Test Item Value Reference Range Interpretation Comments Albumin/Globulin Ratio (test code = 1759-0) 1.4 0.8-2.0 [facility]aAlkaline Qlhvqfwmxyb8834-16-75 12:33:00* Test Item Value Reference Range Interpretation Comments Alkaline Phosphatase (test code = 6768-6) 75 40-150 [facility]aWhite Blood Vnvig3740-02-33 12:08:00* Test Item Value Reference Range Interpretation Comments White Blood Count (test code = 6690-2) 13.74 4.8-10.8 H [facility]aRed Blood Asvoj1164-76-07 12:08:00* Test Item Value Reference Range Interpretation Comments Red Blood Count (test code = 789-8) 4.82 3.6-5.1 [facility]aHemoglobin2019-03-14 12:08:00* Test Item Value Reference Range Interpretation Comments Hemoglobin (test code = 86788-0) 12.8 12.0-16.0 [facility]aHematocrit2019-03-14 12:08:00* Test Item Value Reference Range Interpretation Comments Hematocrit (test code = 4544-3) 40.8 34.2-44.1 [facility]aMean Corpuscular Wbtodi8313-41-91 12:08:00* Test Item Value Reference Range Interpretation Comments Mean Corpuscular Volume (test code = 787-2) 84.6 81-99 [facility]aMean Corpuscular Bfmsbhqvhl6962-06-12 12:08:00* Test Item Value Reference Range Interpretation Comments Mean Corpuscular Hemoglobin (test code = 785-6) 26.6 28-32 L [facility]aMean Corpuscular Hemoglobin Concent 2018-08-29 12:08:00* Test Item Value Reference Range Interpretation Comments Mean Corpuscular Hemoglobin Concent (test code = 786-4) 31.4 31-35 [facility]aRed Cell Distribution Xiwqr3671-99-47 12:08:00* Test Item Value Reference Range Interpretation Comments Red Cell Distribution Width (test code = 52314-4) 15.4 11.7 -14.4 H [facility]cosaPlatelet Pivbv0612-09-81 12:08:00* Test Item Value Reference Range Interpretation Comments Platelet Count (test code = 777-3) 224 140-360 [facility]aNeutrophils (%) (Auto)2018-08-29 12:08:00 * Test Item Value Reference Range Interpretation Comments Neutrophils (%) (Auto) (test code = 06519-5) 81.8 38.7-80.0 H [facility]aLymphocytes (%) (Auto)2018-08-29 12:08:00 * Test Item Value Reference Range Interpretation Comments Lymphocytes (%) (Auto) (test code = 736-9) 11.5 18.0-39.1 L [facility]aMonocytes (%) (Auto)2018-08-29 12:08:00* Test Item Value Reference Range Interpretation Comments Monocytes (%) (Auto) (test code = 5905-5) 5.2 4.4-11.3 [facility]aEosinophils (%) (Auto)2018-08-29 12:08:00 * Test Item Value Reference Range Interpretation Comments Eosinophils (%) (Auto) (test code = 713-8) 0.1 0.0-6.0 [facility]aBasophils (%) (Auto)2018-08-29 12:08:00* Test Item Value Reference Range Interpretation Comments Basophils (%) (Auto) (test code = 706-2) 0.3 0.0-1.0 [facility]aIM GRANULOCYTES %2018-08-29 12:08:00* Test Item Value Reference Range Interpretation Comments IM GRANULOCYTES % (test code = IM GRANULOCYTES %) 1.1 0.0- 1.0 H [facility]aNeutrophils # (Auto)2018-08-29 12:08:00* Test Item Value Reference Range Interpretation Comments Neutrophils # (Auto) (test code = 751-8) 11.2 2.1-6.9 H [facility]aLymphocytes # (Auto)2018-08-29 12:08:00* Test Item Value Reference Range Interpretation Comments Lymphocytes # (Auto) (test code = 22666-9) 1.6 1.0-3.2 [facility]aMonocytes # (Auto)2018-08-29 12:08:00* Test Item Value Reference Range Interpretation Comments Monocytes # (Auto) (test code = 742-7) 0.7 0.2-0.8 [facility]aEosinophils # (Auto)2018-08-29 12:08:00* Test Item Value Reference Range Interpretation Comments Eosinophils # (Auto) (test code = 711-2) 0.0 0.0-0.4 [facility]aBasophils # (Auto)2018-08-29 12:08:00* Test Item Value Reference Range Interpretation Comments Basophils # (Auto) (test code = 704-7) 0.0 0.0-0.1 [facility]cosaAbsolute Immature Granulocyte (auto 2018-08-29 12:08:00* Test Item Value Reference Range Interpretation Comments Absolute Immature Granulocyte (auto (mateo t code = Absolute Immature Granulocyte (auto) 0.15 0-0.1 H [facility]aCHEST 2 NGUIS4593-28-50 11:44:00 [facility] [address] [place] [id number] Patient Name: GIOVANA FINNEY MR #: [id number] : 1945 Age/Sex: 72/F Req #: [id number] Adm Physician: Ordered by: SMILEY SOLER NP Report #: [id number] Location: ER Room/Bed: Procedure: [id number] DX/CHEST 2 VIEWS Exam Date: 08/29/18 Exam Time: 1058 REPORT STATUS: Signed EXAMINATI ON: CHEST 2 VIEWS INDICATION: Shortness of breath. COMPARISON: Chest radiograph 08/22/[address] chest 07/13/2018. FINDINGS: TUBES an d LINES: None. LUNGS: Mild patchy bibasilar opacities, corresponding to fi brotic changes noted on prior studies. No new consolidation or evidence of pul monary edema. PLEURA: No pleural effusion or pneumothorax. HEART AND MEDIASTINUM: The cardiomediastinal silhouette is unremarkable. BONES AND SOFT TISSUES: No acute radiographic abnormality. There is mild vertebral body height loss in a mid thoracic vertebral body, present on prior CT. U PPER ABDOMEN: No free air under the diaphragm. Surgical clips are present in t he upper abdomen. IMPRESSION: No acute radiographic abnormality. Si gned by: Dr. Jeniffer Steel MD on 08/29/2018 11:47 AM Dictated By: JENIFFER STEEL MD 1140 Transcribed By: Bryson CEDENO on 08/29/18 1147 COPY TO: SMILEY SOLER WATER/WASTEW[employer] PROJECT MANAGER Urine WBC 2018-08-29 11:43:00* Test Item Value Reference Range Interpretation Comments Urine WBC (test code = 5821-4) 0-5 0-5 [facility]aUrine WON1211-91-48 11:43:00* Test Item Value Reference Range Interpretation Comments Urine RBC (test code = 57163-4) 0-5 0-5 [facility]aUrine Xanwdobe8156-88-54 11:43:00* Test Item Value Reference Range Interpretation Comments Urine Bacteria (test code = 50446-1) RARE NONE [facility]aUrine Epithelial Vgsnj0295-40-40 11:43:00 * Test Item Value Reference Range Interpretation Comments Urine Epithelial Cells (test code = 51079-1) MANY NONE [facility]aU[facility] Hyaline Seovs9681-99-19 11:43:00* Test Item Value Reference Range Interpretation Comments Urine Hyaline Casts (test code = 45515-6) 0-1 0-1 [facility]aUrine Kveif6131-84-01 11:36:00* Test Item Value Reference Range Interpretation Comments Urine Color (test code = 5778-6) YELLOW YELLOW [facility]aUrine Cjonwud1225-71-80 11:36:00* Test Item Value Reference Range Interpretation Comments Urine Clarity (test code = 37879-3) CLEAR CLEAR [facility]aUrine Specific Yrgwzwz4742-80-16 11:36:00 * Test Item Value Reference Range Interpretation Comments Urine Specific [place] (test code = 5811-5) 1.025 1.010-1.02 5 [facility]aUrine aD4155-26-50 11:36:00* Test Item Value Reference Range Interpretation Comments Urine pH (test code = 86751-5) 6 5-7 [facility]aU[facility] Leukocyte Rgpqzito3054-97-92 11:36:00* Test Item Value Reference Range Interpretation Comments Urine Leukocyte Esterase (test code = 5799-2) NEGATIVE NEGATIVE [facility]aUrine Lkzsmfq7150-68-49 11:36:00* Test Item Value Reference Range Interpretation Comments Urine Nitrite (test code = 30960-7) NEGATIVE NEGATIVE [facility]aUrine Pctsyfw2178-19-19 11:36:00* Test Item Value Reference Range Interpretation Comments Urine Protein (test code = 5804-0) TRACE NEGATIVE H [facility]aUrine Glucose (UA)2018-08-29 11:36:00* Test Item Value Reference Range Interpretation Comments Urine Glucose (UA) (test code = 2349-9) NEGATIVE NEGATIVE [facility]aUrine Sepvfhr7843-08-15 11:36:00* Test Item Value Reference Range Interpretation Comments Urine Ketones (test code = 82965-9) NEGATIVE NEGATIVE [facility]aUrine Opiates Cqdyeb8077-65-91 11:36:00* Test Item Value Reference Range Interpretation Comments Urine Opiates Screen (test code = 26964-1) POSITIVE NEGATIVE H This test provides only a screen. Positive results should be repeated by a confi rmatory test.[facility]aUrine Barbiturates Screen 2018-08-29 11:36:00* Test Item Value Reference Range Interpretation Comments Urine Barbiturates Screen (test code = 607929274) NEGATIVE NEGA TIVE [facility] Phencyclidine Jagakv5222-45-98 11:36:00* Test Item Value Reference Range Interpretation Comments Urine Phencyclidine Screen (test code = 01747-4) NEGATIVE NEGAT RIN [facility]aUrine Amphetamines Fhtdyg3907-60-36 11:36:00* Test Item Value Reference Range Interpretation Comments Urine Amphetamines Screen (test code = 11202-7) NEGATIVE NEGATI VE [facility]aU[facility] Methamphetamines Iucvsq5698-68-63 11:36:00* Test Item Value Reference Range Interpretation Comments Urine Methamphetamines Screen (test code = Urine Metha mphetamines Screen) NEGATIVE NEGATIVE [facility]aUrine Benzodiazepines Ovtyar3411-46-34 11:36:00* Test Item Value Reference Range Interpretation Comments Urine Benzodiazepines Screen (test code = 31311-6) POSITIVE NEG ATIVE H This test provides only a screen. Positive results should be repeated by a confi rmatory test.[facility]aU[facility] Cocaine Screen 2018-08-29 11:36:00* Test Item Value Reference Range Interpretation Comments Urine Cocaine Screen (test code = 3398-5) NEGATIVE NEGATIVE [facility]aU[facility] Cannabinoids Hjznqt4239-73-47 11:36:00* Test Item Value Reference Range Interpretation Comments Urine Cannabinoids Screen (test code = 31126-3) NEGATIVE NEGATI VE THESE RESULTS ARE FOR MEDICAL TREATMENT ONLYTHIS REPORT CONTAINS UNCONFIR MED SCREENING RESULTS*POSITIVE RESULTS WILL BE CONFIRMED BY REFERENCE LAB UPON R EQUEST CUT-OFFDRUG CLASS CONCENTRATION ng/mLAmphetamines 1000Methamphetamines 1000Cocaine 300Opiate 300Phencyc lidine 25Cannabinoid 50Barbiturates 300Benzodiazepine 300Methadone [address]one Rhyfvs0407-85-01 11:36:00* Test Item Value Reference Range Interpretation Comments Urine Methadone Screen (test code = 71487-1) NEGATIVE NEGATIVE THESE RESULTS ARE FOR MEDICAL TREATMENT ONLYTHIS REPORT CONTAINS UNCONFIR MED SCREENING RESULTS*POSITIVE RESULTS WILL BE CONFIRMED BY REFERENCE LAB UPON R EQUEST CUT-OFFDRUG CLASS CONCENTRATION ng/mLAmphetamines 1000Methamphetamines 1000Cocaine Metabolite 300Opiate 300Phencyc lidine 25Cannabinoid 50Barbiturates 300Benzodiazepine 300Methadone 300[facility]aUrine Mseawskjgefd4855-29-59 11:36:00* Test Item Value Reference Range Interpretation Comments Urine Urobilinogen (test code = 94818-4) 0.2 0.2-1 [facility]aU[facility] Poqiubvxo6196-92-04 11:36:00* Test Item Value Reference Range Interpretation Comments Urine Bilirubin (test code = 1978-6) NEGATIVE NEGATIVE [facility]aU[facility] Qfzmf1917-86-90 11:36:00* Test Item Value Reference Range Interpretation Comments Urine Blood (test code = 10403-7) 3+ NEGATIVE H [facility]aBlood Whidwjr5855-05-19 15:04:00* Test Item Value Reference Range Interpretation Comments Blood Culture (test code = 50867025) NO GROWTH AFTER 5 DAYS, FINAL REPORT [facility]aBlood Wmatcrq7954-51-81 15:04:00* Test Item Value Reference Range Interpretation Comments Blood Culture (test code = 57992190) NO GROWTH AFTER 24 HOURS [facility]aBedside Upiehtw6146-02-67 15:03:00* Test Item Value Reference Range Interpretation Comments Bedside Glucose (test code = 66677-7) 193 70-120 H Meter ID: [id number] Hospital AtascosaLactic Acid Level 2018-08-22 20:45:00* Test Item Value Reference Range Interpretation Comments Lactic Acid Level (test code = Lactic Acid Level) 17.4 4.5- 19.8 [facility]aLactic Acid Hnytr2176-23-92 20:45:00* Test Item Value Reference Range Interpretation Comments Lactic Acid Level (test code = Lactic Acid Level) 17.4 4.5- 19.8 [facility]aCreatine Kinase TK7676-76-23 17:08:00* Test Item Value Reference Range Interpretation Comments Creatine Kinase MB (test code = 52737-9) 1.60 0-5.0 [facility] C5708-97-93 17:08:00* Test Item Value Reference Range Interpretation Comments Troponin I (test code = TOY2616) 0.019 0-0.300 [facility]aCreatine Kinase SG1286-71-60 17:08:00* Test Item Value Reference Range Interpretation Comments Creatine Kinase MB (test code = 15700-8) 1.60 0-5.0 [place] 68158019-03-07 17:08:00* Test Item Value Reference Range Interpretation Comments Troponin I (test code = MZJ3776) 0.019 0-0.300 [facility] Vllzd7529-19-84 17:02:00* Test Item Value Reference Range Interpretation Comments Sodium Level (test code = 2951-2) 136 136-145 [facility]aPotassium Thrfc8034-12-51 17:02:00* Test Item Value Reference Range Interpretation Comments Potassium Level (test code = 2823-3) 4.6 3.5-5.1 [facility]aChloride Nibjh1912-63-85 17:02:00* Test Item Value Reference Range Interpretation Comments Chloride Level (test code = 2075-0) 104 98-107 [facility]aCarbon Dioxide Rxcdw5387-35-94 17:02:00* Test Item Value Reference Range Interpretation Comments Carbon Dioxide Level (test code = 2028-9) 23 22-29 [facility]aAnion Tyk2002-79-07 17:02:00* Test Item Value Reference Range Interpretation Comments Anion Gap (test code = 34739-9) 13.6 8-16 [facility]aBlood Urea Riahutcj5664-09-89 17:02:00* Test Item Value Reference Range Interpretation Comments Blood Urea Nitrogen (test code = 3094-0) 14 7-26 [facility]aCreatinine2019-03-07 17:02:00* Test Item Value Reference Range Interpretation Comments Creatinine (test code = 2160-0) 0.85 0.57-1.11 [facility]aBUN/Creatinine Nknoc2962-46-83 17:02:00* Test Item Value Reference Range Interpretation Comments BUN/Creatinine Ratio (test code = 3097-3) 16 6-25 [facility]cosaEstimat Glomerular Filtration Rate 2018-08-22 17:02:00* Test Item Value Reference Range Interpretation Comments Estimat Glomerular Filtration Rate (test code = 615899010) > 60 >60 Ranges were taken from the National Kidney Disease Education Program and the [facility] Kidney Foundation literature.Reference ranges:60 or greater: Hadjzr28-82 ( for 3 consecutive months): Chronic kidney disease 15 or less: Kidney failureMethodist Hospital AtascosaGlucose Wtdwf5710-59-07 17:02:00* Test Item Value Reference Range Interpretation Comments Glucose Level (test code = RFO0886) 180 74-118 H [facility]aCalcium Lqqxp8056-07-09 17:02:00* Test Item Value Reference Range Interpretation Comments Calcium Level (test code = 56952-9) 9.4 8.4-10.2 [facility]aMagnesium Jyvpr9681-25-84 17:02:00* Test Item Value Reference Range Interpretation Comments Magnesium Level (test code = 70142-4) 1.9 1.3-2.1 [facility]aTotal Emomfmsqa1341-81-85 17:02:00* Test Item Value Reference Range Interpretation Comments Total Bilirubin (test code = 1975-2) 0.3 0.2-1.2 [facility]cosaAspartate Amino Transf (AST/SGOT) 2018-08-22 17:02:00* Test Item Value Reference Range Interpretation Comments Aspartate Amino Transf (AST/SGOT) (test code = Aspartate Amino Transf (AST/SGOT)) 18 5-34 [facility]aAlanine Aminotransferase (ALT/SGPT) 2018-08-22 17:02:00* Test Item Value Reference Range Interpretation Comments Alanine Aminotransferase (ALT/SGPT) (test code = 1742-6) 27 0-55 [facility]aTotal Olccxkh8982-62-06 17:02:00* Test Item Value Reference Range Interpretation Comments Total Protein (test code = 2885-2) 6.9 6.5-8.1 [facility]aAlbumin2019-03-07 17:02:00* Test Item Value Reference Range Interpretation Comments Albumin (test code = 1751-7) 3.8 3.5-5.0 [facility]aGlobulin2019-03-07 17:02:00* Test Item Value Reference Range Interpretation Comments Globulin (test code = 70399-8) 3.1 2.3-3.5 [facility]aAlbumin/Globulin Sbfqy2757-68-18 17:02:00 * Test Item Value Reference Range Interpretation Comments Albumin/Globulin Ratio (test code = 1759-0) 1.2 0.8-2.0 [facility]cosaAlkaline Nnmtpudrkni4569-54-62 17:02:00* Test Item Value Reference Range Interpretation Comments Alkaline Phosphatase (test code = 6768-6) 75 40-150 [facility]aCreatine Wzzcfr7485-19-16 17:02:00* Test Item Value Reference Range Interpretation Comments Creatine Kinase (test code = 2157-6) 42 29-168 [facility]aMagnesium Hxduh4669-64-07 17:02:00* Test Item Value Reference Range Interpretation Comments Magnesium Level (test code = 43686-6) 1.9 1.3-2.1 [facility]aCreatine Ufjric3269-62-26 17:02:00* Test Item Value Reference Range Interpretation Comments Creatine Kinase (test code = 2157-6) 42 29-168 [facility]aUrine BDG2771-26-24 16:12:00* Test Item Value Reference Range Interpretation Comments Urine WBC (test code = 5821-4) 6-10 0-5 H [facility]aUrine GQI1808-76-49 16:12:00* Test Item Value Reference Range Interpretation Comments Urine RBC (test code = 90078-7) 0-5 0-5 [facility]aUrine Aagnulch5554-60-42 16:12:00* Test Item Value Reference Range Interpretation Comments Urine Bacteria (test code = 79913-0) MANY NONE H [facility]aUrine Epithelial Otuqh5131-87-83 16:12:00 * Test Item Value Reference Range Interpretation Comments Urine Epithelial Cells (test code = 81988-9) MANY NONE [facility]aUrine Jedyf3690-02-42 15:59:00* Test Item Value Reference Range Interpretation Comments Urine Color (test code = 5778-6) YELLOW YELLOW [facility]aUrine Putlnvq3654-67-47 15:59:00* Test Item Value Reference Range Interpretation Comments Urine Clarity (test code = 39372-0) SL CLOUDY CLEAR [facility]aUrine Specific Gpmgzvk7614-14-54 15:59:00 * Test Item Value Reference Range Interpretation Comments Urine Specific [place] (test code = 5811-5) 1.020 1.010-1.02 5 [facility]aUrine uZ6904-21-67 15:59:00* Test Item Value Reference Range Interpretation Comments Urine pH (test code = 32771-8) 5 5-7 [facility]aUrine Leukocyte Jbpmxvwi9014-72-15 15:59:00* Test Item Value Reference Range Interpretation Comments Urine Leukocyte Esterase (test code = 5799-2) 1+ NEGATIVE H [facility]aUrine Srgxush5337-52-23 15:59:00* Test Item Value Reference Range Interpretation Comments Urine Nitrite (test code = 68519-6) NEGATIVE NEGATIVE [facility]aUrine Nbgtycj5262-89-83 15:59:00* Test Item Value Reference Range Interpretation Comments Urine Protein (test code = 5804-0) NEGATIVE NEGATIVE [facility]aUrine Glucose (UA)2018-08-22 15:59:00* Test Item Value Reference Range Interpretation Comments Urine Glucose (UA) (test code = 2349-9) NEGATIVE NEGATIVE [facility]aUrine Tuhhhcn1441-67-46 15:59:00* Test Item Value Reference Range Interpretation Comments Urine Ketones (test code = 24469-2) NEGATIVE NEGATIVE [facility]aUrine Yoxqnvypiysj6692-45-08 15:59:00* Test Item Value Reference Range Interpretation Comments Urine Urobilinogen (test code = 11748-6) 0.2 0.2-1 [facility]aUrine Bwmbbmftz3759-35-87 15:59:00* Test Item Value Reference Range Interpretation Comments Urine Bilirubin (test code = 1978-6) NEGATIVE NEGATIVE [facility] Yekxz1221-60-53 15:59:00* Test Item Value Reference Range Interpretation Comments Urine Blood (test code = 53117-7) TRACE NEGATIVE H [facility]aB-Type Natriuretic Vapmhka7052-40-54 15:39:00* Test Item Value Reference Range Interpretation Comments B-Type Natriuretic Peptide (test code = 42929-3) < 10.0 0-100 [facility] Natri[facility]tic Zmjgwvn5179-96-01 15:39:00* Test Item Value Reference Range Interpretation Comments B-Type Natriuretic Peptide (test code = 49011-8) < 10.0 0-100 [facility]aWhite Blood Olgjx3955-38-90 15:20:00* Test Item Value Reference Range Interpretation Comments White Blood Count (test code = 6690-2) 12.34 4.8-10.8 H [facility]aRed Blood Tpxys5449-76-57 15:20:00* Test Item Value Reference Range Interpretation Comments Red Blood Count (test code = 789-8) 4.73 3.6-5.1 [facility]aHemoglobin2019-03-07 15:20:00* Test Item Value Reference Range Interpretation Comments Hemoglobin (test code = 91748-3) 12.5 12.0-16.0 [facility]aHematocrit2019-03-07 15:20:00* Test Item Value Reference Range Interpretation Comments Hematocrit (test code = 4544-3) 39.7 34.2-44.1 [facility]aMean Corpuscular Xmfmyo0347-64-73 15:20:00* Test Item Value Reference Range Interpretation Comments Mean Corpuscular Volume (test code = 787-2) 83.9 81-99 [facility]aMean Corpuscular Jprdoregbw5967-66-12 15:20:00* Test Item Value Reference Range Interpretation Comments Mean Corpuscular Hemoglobin (test code = 785-6) 26.4 28-32 L [facility]aMean Corpuscular Hemoglobin Concent 2018-08-22 15:20:00* Test Item Value Reference Range Interpretation Comments Mean Corpuscular Hemoglobin Concent (test code = 786-4) 31.5 31-35 [facility]aRed Cell Distribution Xqbib0793-85-93 15:20:00* Test Item Value Reference Range Interpretation Comments Red Cell Distribution Width (test code = 30429-4) 15.5 11.7 -14.4 H [facility]aPlatelet Rjvgf2045-52-72 15:20:00* Test Item Value Reference Range Interpretation Comments Platelet Count (test code = 777-3) 223 140-360 [facility]aNeutrophils (%) (Auto)2018-08-22 15:20:00 * Test Item Value Reference Range Interpretation Comments Neutrophils (%) (Auto) (test code = 70840-9) 90.7 38.7-80.0 H [facility]aLymphocytes (%) (Auto)2018-08-22 15:20:00 * Test Item Value Reference Range Interpretation Comments Lymphocytes (%) (Auto) (test code = 736-9) 5.9 18.0-39.1 L [facility]aMonocytes (%) (Auto)2018-08-22 15:20:00* Test Item Value Reference Range Interpretation Comments Monocytes (%) (Auto) (test code = 5905-5) 1.9 4.4-11.3 L [facility]aEosinophils (%) (Auto)2018-08-22 15:20:00 * Test Item Value Reference Range Interpretation Comments Eosinophils (%) (Auto) (test code = 713-8) 0.2 0.0-6.0 [facility]aBasophils (%) (Auto)2018-08-22 15:20:00* Test Item Value Reference Range Interpretation Comments Basophils (%) (Auto) (test code = 706-2) 0.2 0.0-1.0 [facility]aIM GRANULOCYTES %2018-08-22 15:20:00* Test Item Value Reference Range Interpretation Comments IM GRANULOCYTES % (test code = IM GRANULOCYTES %) 1.1 0.0- 1.0 H [facility]aNeutrophils # (Auto)2018-08-22 15:20:00* Test Item Value Reference Range Interpretation Comments Neutrophils # (Auto) (test code = 751-8) 11.2 2.1-6.9 H [facility]aLymphocytes # (Auto)2018-08-22 15:20:00* Test Item Value Reference Range Interpretation Comments Lymphocytes # (Auto) (test code = 15476-5) 0.7 1.0-3.2 L [facility]aMonocytes # (Auto)2018-08-22 15:20:00* Test Item Value Reference Range Interpretation Comments Monocytes # (Auto) (test code = 742-7) 0.2 0.2-0.8 [facility]aEosinophils # (Auto)2018-08-22 15:20:00* Test Item Value Reference Range Interpretation Comments Eosinophils # (Auto) (test code = 711-2) 0.0 0.0-0.4 [facility]aBasophils # (Auto)2018-08-22 15:20:00* Test Item Value Reference Range Interpretation Comments Basophils # (Auto) (test code = 704-7) 0.0 0.0-0.1 [facility]aAbsolute Immature Granulocyte (auto 2018-08-22 15:20:00* Test Item Value Reference Range Interpretation Comments Absolute Immature Granulocyte (auto (mateo t code = Absolute Immature Granulocyte (auto) 0.13 0-0.1 H [facility]aCHEST 2 JYIOW1822-22-74 15:07:00 [facility] [address] [address] Patient Name: GIOVANA FINNEY MR #: [id number] : 1945 Age/Sex: 72/F Req #: [id number] Adm Physician: Ordered by: SMILEY SOLER WATER/WASTEWATER PROJECT MANAGER Report #: [id number] Location: ER Room/Bed: Procedure: [id number] DX/CHEST 2 VIEWS Exam Date: 08/22/18 Exam Time: 1450 REPORT STATUS: Signed EXAM: [facility] 2 VIEWS, PA and lateral DATE: 08/22/2018 Time stamp on exam: 2:31 PM INDICA TION: Shortness of breath COMPARISON: 07/13/2018 chest x-ray and CT scan of the chest FINDINGS: LINES/TUBES: None LUNGS: Increased densities in the lung bases likely secondary to fibrosis. No focal consolidation. PLEURA: No effusions or pneumothorax. HEART AND MEDIASTINUM: Normal size and conto ur. BONES AND SOFT TISSUES: No acute findings. Clips in the right upper funmilayo drant of the abdomen. IMPRESSION: No acute thoracic abnormality. Signed by: Dr. Queenie Marvin DO on 08/22/2018 3:17 PM Dictated By: QUEENIE MARVIN DO 151 7 Transcribed By: RUSS on 08/22/18 1517 COPY TO: SMILEY SOLER NP Kjxbqwvo5841-91-12 06:09:00* Test Item Value Reference Range Interpretation Comments Ferritin (test code = 2276-4) 19.39 4.63-204.00 [facility]aFerritin2019-01-28 06:09:00* Test Item Value Reference Range Interpretation Comments Ferritin (test code = 2276-4) 19.39 4.63-204.00 [facility]aFerritin2019-01-28 06:09:00* Test Item Value Reference Range Interpretation Comments Ferritin (test code = 2276-4) 19.39 4.63-204.00 [facility]aBedside Dyqvfzp0058-65-19 20:41:00* Test Item Value Reference Range Interpretation Comments Bedside Glucose (test code = 05745-5) 170 70-120 H Meter ID: [id number] Hospital AtascosaInfluenza Virus Types A,B Zpjqvzl1888-89-69 12:38:00* Test Item Value Reference Range Interpretation Comments Influenza Virus Types A,B Antigen (test code = 21642-5) NEGATIVE NEGATIVE [facility]aInfluenza Virus Types A,B Antigen 2018-07-14 12:38:00* Test Item Value Reference Range Interpretation Comments Influenza Virus Types A,B Antigen (test code = 25212-7) NEGATIVE NEGATIVE [facility]cosaInfluenza Virus Types A,B Antigen 2018-07-14 12:38:00* Test Item Value Reference Range Interpretation Comments Influenza Virus Types A,B Antigen (test code = 32288-6) NEGATIVE NEGATIVE [facility]aCT CHEST M3095-46-35 14:25:00 [place] [address] Patient Name: GIOVANA FINNEY MR #: [id number] : 1945 Age/Sex: 72/F Req #: [id number] [facility] Physician: MARILU WAITE MD Ordered by: MARILU WAITE MD Report #: [id number] Location: [facility] Room/Bed: [address] Procedure: [id number] CT/CT CHEST W Exam Date: Exam Time: REPORT STATUS: Signed EXAM: CT Chest WITH contrast INDICATION: Bronchitis COMPARISON: Same day radiograph and 02/19/[address], no report available TECHNIQUE: The Chest was scanned utilizing a multidetector helical scanner after administration of IV contrast. Coronal and sagittal reformations were obtained. IV CONTRAST: 100 mL Isovue-370 COMPLICATIONS: None RADIATION DOSE: Total DLP: 466 mGy*cm Estimated effective dose: (DLP x 0.015 x size fa ctor) mSv CTDIvol has been reviewed. It is below the limits set by the [facility] Protocol Committee (RPC). Appropriate CT dose reduction techniques wer e utilized. FINDINGS: Lines and Tubes: None. Lower Neck: The visualized thyroid gland is grossly unremarkable with no suspicious or signifi cant nodule identified. Heart and Great Vessels: The aorta and main pulmona ry artery measure 30 and 24 mm. respectively. No pericardial effusion. Advanc ed coronary vascular calcifications including left main coronary artery. Lymph Nodes: Prominent right hilar lymph nodes including 27 x 14 mm image 44 and 18 x 13 mm image 53, more conspicuous than previous study. Additional 14 x 7 mm right precarinal, 11 x 10 mm right paratracheal, and 15 x 6 mm preaortic, which are similar. Lungs: Advanced emphysematous changes are present with moderate biapical scarring. There is no pneumothorax or pleural effusion. Tr achea and central bronchi are unremarkable. Bronchial wall thickening present, particularly in the lower lobes. 4 mm pleural nodule right lower lobe image 60 stable. Mild basilar fibrotic changes. Mild scattered groundglass opacities. Upper abdomen: Splenic granulomata. Cyst left kidney. Minimal nodularity left adrenal gland stable. Cholecystectomy clips with reservoir phenomenon. Bones and Soft Tissues: Degenerative changes. Several thoracic vertebral bodi es with minimal height loss. IMPRESSION: 1. Advanced emphysematous c hanges, biapical scarring, scattered bronchial wall thickening, and mild fibro tic changes in the lung bases. Findings similar to previous study. 2. Il l-defined groundglass opacities could represent superimposed acute infectious/ inflammatory process. 3. Right hilar adenopathy slightly more conspicuous than previous study with other mediastinal/hilar lymph nodes similar. Given se veral partially calcified lymph nodes and splenic granulomata, a component of prior granulomatous disease present. Given increased conspicuity of right doris r lymph nodes, however, CT with contrast follow-up recommended. 4. Advan opal coronary artery vascular calcifications. Signed by: Paula Fitzgerald on 07/13/2018 2:32 PM Dictated By: GABY STONE MD Electronically Sig lianna By: GABY STONE MD on 07/13/18 1432 Transcribed By: RUSS on 07/13/18 1432 COPY TO: MARILU WAITE MD CHEST 2 WSRBO1672-43-47 11:27:00 [place] [address] Patient Name: GIOVANA FINNEY MR #: [id number] : 1945 Age/Sex: 72/F Req #: [id number] Adm Physician: MARILU WAITE MD Ordered by: MARILU WAITE MD Report #: [id number] Location: [facility] Room/Bed: [place] [address] Procedure: [id number] DX/CH EST 2 VIEWS Exam Date: 07/13/18 Exam Time: 1113 REPORT STATUS: Signed EXAM: XR CHEST 2 VIEWS DATE: 07/13/2018 11:03 AM INDICATION: Bronchitis COMPARIS ON: 02/19/2018 chest x-ray, 02/19/2018 CT, no report available FINDINGS: L milan and Tubes: None Heart and Mediastinum: No acute cardiomediastinal find ings. Lungs and Pleura: Biapical scarring, advanced emphysematous changes, and chronic appearing changes in the lung bases are similar. Bones and So ft Tissues: No acute findings. IMPRESSION: 1. Similar chronic changes. Superimposed infectious process difficult to exclude. Signed by: Dr. Gaby Stone MD on 07/13/2018 11:28 AM Dictated By: GABY STONE MD Electr onically Signed By: GABY STONE MD on 07/13/18 112 Transcribed By: RUSS on 07/13/181127 COPY TO: MARILU WAITE MD Sodium Ebmog6532-12-69 11:13:00* Test Item Value Reference Range Interpretation Comments Sodium Level (test code = 2951-2) 142 136-145 [facility]aPotassium Hmjxk2348-82-75 11:13:00* Test Item Value Reference Range Interpretation Comments Potassium Level (test code = 2823-3) 4.5 3.5-5.1 [facility]aChloride Zpibv0462-61-60 11:13:00* Test Item Value Reference Range Interpretation Comments Chloride Level (test code = 2075-0) 108 98-107 H [facility]aCarbon Dioxide Qxhmc1556-17-64 11:13:00* Test Item Value Reference Range Interpretation Comments Carbon Dioxide Level (test code = 2028-9) 24 22-29 [facility]aAnion Oyo0714-24-72 11:13:00* Test Item Value Reference Range Interpretation Comments Anion Gap (test code = 36924-7) 14.5 8-16 [facility]aBlood Urea Tjbvppjw5228-49-55 11:13:00* Test Item Value Reference Range Interpretation Comments Blood Urea Nitrogen (test code = 3094-0) 12 7-26 [facility]aCreatinine2019-01-26 11:13:00* Test Item Value Reference Range Interpretation Comments Creatinine (test code = 2160-0) 0.82 0.57-1.11 [facility]aBUN/Creatinine Eegwa2863-60-69 11:13:00* Test Item Value Reference Range Interpretation Comments BUN/Creatinine Ratio (test code = 3097-3) 15 6-25 [facility]ascosaEstimat Glomerular Filtration Rate 2018-07-13 11:13:00* Test Item Value Reference Range Interpretation Comments Estimat Glomerular Filtration Rate (test code = 654783969) > 60 >60 Ranges were taken from the National Kidney Disease Education Program and the [facility] Kidney Foundation literature.Reference ranges:60 or greater: Lwofob55-14 ( for 3 consecutive months): Chronic kidney disease 15 or less: Kidney failureMethodist Hospital AtascosaGlucose Vnetl6364-76-62 11:13:00* Test Item Value Reference Range Interpretation Comments Glucose Level (test code = WZF1430) 103 74-118 [facility]aCalcium Qyiub1200-48-35 11:13:00* Test Item Value Reference Range Interpretation Comments Calcium Level (test code = 29245-5) 8.9 8.4-10.2 [facility]aTotal Xniruhukd8570-48-04 11:13:00* Test Item Value Reference Range Interpretation Comments Total Bilirubin (test code = 1975-2) 0.3 0.2-1.2 [facility] AtascosaAspartate Amino Transf (AST/SGOT) 2018-07-13 11:13:00* Test Item Value Reference Range Interpretation Comments Aspartate Amino Transf (AST/SGOT) (test code = Aspartate Amino Transf (AST/SGOT)) 23 5-34 [facility]aAlanine Aminotransferase (ALT/SGPT) 2018-07-13 11:13:00* Test Item Value Reference Range Interpretation Comments Alanine Aminotransferase (ALT/SGPT) (test code = 1742-6) 33 0-55 [facility]aTotal Zbklype6444-93-46 11:13:00* Test Item Value Reference Range Interpretation Comments Total Protein (test code = 2885-2) 6.5 6.5-8.1 [facility]aAlbumin2019-01-26 11:13:00* Test Item Value Reference Range Interpretation Comments Albumin (test code = 1751-7) 3.8 3.5-5.0 [facility]cosaGlobulin2019-01-26 11:13:00* Test Item Value Reference Range Interpretation Comments Globulin (test code = 15130-1) 2.7 2.3-3.5 [facility]aAlbumin/Globulin Kkssq9688-76-52 11:13:00 * Test Item Value Reference Range Interpretation Comments Albumin/Globulin Ratio (test code = 1759-0) 1.4 0.8-2.0 [facility] At[facility]cosaAlkaline Zhrginywrwj6236-69-63 11:13:00* Test Item Value Reference Range Interpretation Comments Alkaline Phosphatase (test code = 6768-6) 69 40-150 [facility]aWhite Blood Fngbn6963-76-42 10:56:00* Test Item Value Reference Range Interpretation Comments White Blood Count (test code = 6690-2) 7.15 4.8-10.8 [facility]aRed Blood Nqqma0286-07-02 10:56:00* Test Item Value Reference Range Interpretation Comments Red Blood Count (test code = 789-8) 4.43 3.6-5.1 [facility]aHemoglobin2019-01-26 10:56:00* Test Item Value Reference Range Interpretation Comments Hemoglobin (test code = 29965-5) 11.6 12.0-16.0 L [facility]aHematocrit2019-01-26 10:56:00* Test Item Value Reference Range Interpretation Comments Hematocrit (test code = 4544-3) 36.9 34.2-44.1 [facility]aMean Corpuscular Ycgtju4169-07-12 10:56:00* Test Item Value Reference Range Interpretation Comments Mean Corpuscular Volume (test code = 787-2) 83.3 81-99 [facility]aMean Corpuscular Shxurkfcme9837-50-45 10:56:00* Test Item Value Reference Range Interpretation Comments Mean Corpuscular Hemoglobin (test code = 785-6) 26.2 28-32 L [facility]aMean Corpuscular Hemoglobin Concent 2018-07-13 10:56:00* Test Item Value Reference Range Interpretation Comments Mean Corpuscular Hemoglobin Concent (test code = 786-4) 31.4 31-35 [facility] AtascosaRed Cell Distribution Rkwhn0851-65-43 10:56:00* Test Item Value Reference Range Interpretation Comments Red Cell Distribution Width (test code = 73806-1) 15.1 11.7 -14.4 H [facility]aPlatelet Lmxnl7144-16-22 10:56:00* Test Item Value Reference Range Interpretation Comments Platelet Count (test code = 777-3) 197 140-360 [facility]aNeutrophils (%) (Auto)2018-07-13 10:56:00 * Test Item Value Reference Range Interpretation Comments Neutrophils (%) (Auto) (test code = 59837-7) 73.2 38.7-80.0 [facility]aLymphocytes (%) (Auto)2018-07-13 10:56:00 * Test Item Value Reference Range Interpretation Comments Lymphocytes (%) (Auto) (test code = 736-9) 13.0 18.0-39.1 L [facility]aMonocytes (%) (Auto)2018-07-13 10:56:00* Test Item Value Reference Range Interpretation Comments Monocytes (%) (Auto) (test code = 5905-5) 7.6 4.4-11.3 [facility]aEosinophils (%) (Auto)2018-07-13 10:56:00 * Test Item Value Reference Range Interpretation Comments Eosinophils (%) (Auto) (test code = 713-8) 4.9 0.0-6.0 [facility]aBasophils (%) (Auto)2018-07-13 10:56:00* Test Item Value Reference Range Interpretation Comments Basophils (%) (Auto) (test code = 706-2) 0.7 0.0-1.0 [facility]aIM GRANULOCYTES %2018-07-13 10:56:00* Test Item Value Reference Range Interpretation Comments IM GRANULOCYTES % (test code = IM GRANULOCYTES %) 0.6 0.0- 1.0 [facility]aNeutrophils # (Auto)2018-07-13 10:56:00* Test Item Value Reference Range Interpretation Comments Neutrophils # (Auto) (test code = 751-8) 5.2 2.1-6.9 [facility]aLymphocytes # (Auto)2018-07-13 10:56:00* Test Item Value Reference Range Interpretation Comments Lymphocytes # (Auto) (test code = 15530-5) 0.9 1.0-3.2 L [facility]aMonocytes # (Auto)2018-07-13 10:56:00* Test Item Value Reference Range Interpretation Comments Monocytes # (Auto) (test code = 742-7) 0.5 0.2-0.8 [facility]aEosinophils # (Auto)2018-07-13 10:56:00* Test Item Value Reference Range Interpretation Comments Eosinophils # (Auto) (test code = 711-2) 0.4 0.0-0.4 [facility]aBasophils # (Auto)2018-07-13 10:56:00* Test Item Value Reference Range Interpretation Comments Basophils # (Auto) (test code = 704-7) 0.1 0.0-0.1 [facility]aAbsolute Immature Granulocyte (auto 2018-07-13 10:56:00* Test Item Value Reference Range Interpretation Comments Absolute Immature Granulocyte (auto (mateo t code = Absolute Immature Granulocyte (auto) 0.04 0-0.1 [facility]aBedside Wsdrkiw5216-97-72 09:38:00* Test Item Value Reference Range Interpretation Comments Bedside Glucose (test code = 53250-9) 174 70-120 H Meter ID: [id number] Texas Health System McAllenodium Level 2018-02-20 06:03:00* Test Item Value Reference Range Interpretation Comments Sodium Level (test code = 2951-2) 135 136-145 L [facility]aPotassium Ukwyv4454-87-70 06:03:00* Test Item Value Reference Range Interpretation Comments Potassium Level (test code = 2823-3) 3.3 3.5-5.1 L [facility]aChloride Xrdfi2319-64-34 06:03:00* Test Item Value Reference Range Interpretation Comments Chloride Level (test code = 2075-0) 102 98-107 [facility]aCarbon Dioxide Dphcg1197-69-20 06:03:00* Test Item Value Reference Range Interpretation Comments Carbon Dioxide Level (test code = 2028-9) 23 22-29 [facility]aAnion Noq7257-43-08 06:03:00* Test Item Value Reference Range Interpretation Comments Anion Gap (test code = 25420-4) 13.3 8-16 [facility]aBlood Urea Zipvxhxq6857-02-35 06:03:00* Test Item Value Reference Range Interpretation Comments Blood Urea Nitrogen (test code = 3094-0) 17 7-26 [facility]aCreatinine2018-09-05 06:03:00* Test Item Value Reference Range Interpretation Comments Creatinine (test code = 2160-0) 0.79 0.57-1.11 [facility]aBUN/Creatinine Soxlf8388-18-50 06:03:00* Test Item Value Reference Range Interpretation Comments BUN/Creatinine Ratio (test code = 3097-3) 22 6-25 [facility]cosaEstimat Glomerular Filtration Rate 2018-02-20 06:03:00* Test Item Value Reference Range Interpretation Comments Estimat Glomerular Filtration Rate (test code = 67002-7) 60- >60 Ranges were taken from the National Kidney Disease Education Program and the [facility] Kidney Foundation literature.Reference ranges:60 or greater: Cmquuz13-40 ( for 3 consecutive months): Chronic kidney disease 15 or less: Kidney failureMethodist Hospital AtascosaGlucose Styrm4872-96-61 06:03:00* Test Item Value Reference Range Interpretation Comments Glucose Level (test code = HNM0273) 155 74-118 H [facility]aCalcium Wayaz7976-29-48 06:03:00* Test Item Value Reference Range Interpretation Comments Calcium Level (test code = 94490-4) 9.3 8.4-10.2 [facility]aTotal Gsrdegjbg9596-57-94 06:03:00* Test Item Value Reference Range Interpretation Comments Total Bilirubin (test code = 1975-2) 0.4 0.2-1.2 [facility]cosaAspartate Amino Transf (AST/SGOT) 2018-02-20 06:03:00* Test Item Value Reference Range Interpretation Comments Aspartate Amino Transf (AST/SGOT) (test code = Aspartate Amino Transf (AST/SGOT)) 22 5-34 [facility]cosaAlanine Aminotransferase (ALT/SGPT) 2018-02-20 06:03:00* Test Item Value Reference Range Interpretation Comments Alanine Aminotransferase (ALT/SGPT) (test code = 1742-6) 25 0-55 [facility]aTotal Tgrvjkt8069-19-61 06:03:00* Test Item Value Reference Range Interpretation Comments Total Protein (test code = 2885-2) 6.8 6.5-8.1 [facility]aAlbumin2018-09-05 06:03:00* Test Item Value Reference Range Interpretation Comments Albumin (test code = 1751-7) 3.7 3.5-5.0 [facility]cosaGlobulin2018-09-05 06:03:00* Test Item Value Reference Range Interpretation Comments Globulin (test code = 42371-1) 3.1 2.3-3.5 [facility]aAlbumin/Globulin Tlyvy8978-01-93 06:03:00 * Test Item Value Reference Range Interpretation Comments Albumin/Globulin Ratio (test code = 1759-0) 1.2 0.8-2.0 [facility]cosaAlkaline Ikipurbdmcd3932-66-27 06:03:00* Test Item Value Reference Range Interpretation Comments Alkaline Phosphatase (test code = 6768-6) 81 40-150 [facility]aTriglycerides Kyppo1404-00-03 06:03:00* Test Item Value Reference Range Interpretation Comments Triglycerides Level (test code = 2571-8) 165 0-149 H [facility]aCholesterol Izlxk8753-83-46 06:03:00* Test Item Value Reference Range Interpretation Comments Cholesterol Level (test code = 2093-3) 203 0-199 H Less than 200 mg/dL Low Fvtk265 - 239 mg/dL Borderline Obol005 m g/dl and greater High Risk [facility]cosaLDL Sbzftqlirws7663-64-26 06:03:00* Test Item Value Reference Range Interpretation Comments LDL Cholesterol (test code = 2089-1) 134 60-130 [facility] Tngpdjckzkt4281-13-46 06:03:00* Test Item Value Reference Range Interpretation Comments HDL Cholesterol (test code = 2085-9) 36 40-60 L [facility]aCholesterol/HDL Ipqma9374-53-40 06:03:00 * Test Item Value Reference Range Interpretation Comments Cholesterol/HDL Ratio (test code = 9830-1) 5.6 3.0-3.6 H [facility]aTriglycerides Lixvh2647-92-35 06:03:00* Test Item Value Reference Range Interpretation Comments Triglycerides Level (test code = 2571-8) 165 0-149 H [facility]aCholesterol Uzzqj8752-62-48 06:03:00* Test Item Value Reference Range Interpretation Comments Cholesterol Level (test code = 2093-3) 203 0-199 H Less than 200 mg/dL Low Cqri789 - 239 mg/dL Borderline Fyle612 m g/dl and greater High Risk [facility]cosaLDL Luerxkuewso0474-44-36 06:03:00* Test Item Value Reference Range Interpretation Comments LDL Cholesterol (test code = 2089-1) 134 60-130 [facility] Ymiayddquaq4697-12-92 06:03:00* Test Item Value Reference Range Interpretation Comments HDL Cholesterol (test code = 2085-9) 36 40-60 L [facility]aCholesterol/HDL Zdpzy9409-71-98 06:03:00 * Test Item Value Reference Range Interpretation Comments Cholesterol/HDL Ratio (test code = 9830-1) 5.6 3.0-3.6 [facility]iglycerides Twgjf2580-14-59 06:03:00* Test Item Value Reference Range Interpretation Comments Triglycerides Level (test code = 2571-8) 165 0-149 H [facility]aCh[facility] Bijfl1163-67-67 06:03:00* Test Item Value Reference Range Interpretation Comments Cholesterol Level (test code = 2093-3) 203 0-199 H Less than 200 mg/dL Low Ygmb327 - 239 mg/dL Borderline Iqfj900 m g/dl and greater High Risk [facility]aLDL Trwsirnoxjn2121-50-46 06:03:00* Test Item Value Reference Range Interpretation Comments LDL Cholesterol (test code = 2089-1) 134 60-130 H [facility] Pnoioadsafd0104-58-01 06:03:00* Test Item Value Reference Range Interpretation Comments HDL Cholesterol (test code = 2085-9) 36 40-60 L [facility]aCholesterol/HDL Rszve3687-99-93 06:03:00 * Test Item Value Reference Range Interpretation Comments Cholesterol/HDL Ratio (test code = 9830-1) 5.6 3.0-3.6 [facility]aTriglycerides Uyowu4097-27-33 06:03:00* Test Item Value Reference Range Interpretation Comments Triglycerides Level (test code = 2571-8) 165 0-149 H [facility]aCh[facility] Ebuyd9218-21-18 06:03:00* Test Item Value Reference Range Interpretation Comments Cholesterol Level (test code = 2093-3) 203 0-199 H Less than 200 mg/dL Low Bwhl541 - 239 mg/dL Borderline Eufv595 m g/dl and greater High Risk [facility]aLDL Ozwaobahlwr0548-16-48 06:03:00* Test Item Value Reference Range Interpretation Comments LDL Cholesterol (test code = 2089-1) 134 60-130 H [facility] Bywbvlgmark0594-33-47 06:03:00* Test Item Value Reference Range Interpretation Comments HDL Cholesterol (test code = 2085-9) 36 40-60 L [facility]aCholesterol/HDL Hogvy5692-19-86 06:03:00 * Test Item Value Reference Range Interpretation Comments Cholesterol/HDL Ratio (test code = 9830-1) 5.6 3.0-3.6 [facility]aCreatine Kinase JZ3841-91-01 05:45:00* Test Item Value Reference Range Interpretation Comments Creatine Kinase MB (test code = 74097-9) 3.50 0-5.0 [facility]aTroponin Y8497-39-67 05:45:00* Test Item Value Reference Range Interpretation Comments Troponin I (test code = XUD2265) 0.011 0-0.300 [facility]aCreatine Kinase KE7002-94-70 05:45:00* Test Item Value Reference Range Interpretation Comments Creatine Kinase MB (test code = 09327-6) 3.50 0-5.0 [facility]Tr[place] [address]R7462-64-93 05:45:00* Test Item Value Reference Range Interpretation Comments Troponin I (test code = LMT3001) 0.011 0-0.300 [facility]aCreatine Wnqamn4202-81-46 05:42:00* Test Item Value Reference Range Interpretation Comments Creatine Kinase (test code = 2157-6) 310 29-168 H [facility]aCreatine Gmdqpt0201-72-28 05:42:00* Test Item Value Reference Range Interpretation Comments Creatine Kinase (test code = 2157-6) 310 29-168 H [facility]aWhite Blood Ogaff0086-54-60 05:23:00* Test Item Value Reference Range Interpretation Comments White Blood Count (test code = 6690-2) 11.71 4.8-10.8 H [facility]aRed Blood Hwvyu9491-46-98 05:23:00* Test Item Value Reference Range Interpretation Comments Red Blood Count (test code = 789-8) 4.41 3.6-5.1 [facility]aHemoglobin2018-09-05 05:23:00* Test Item Value Reference Range Interpretation Comments Hemoglobin (test code = 01078-6) 11.3 12.0-16.0 L [facility]aHematocrit2018-09-05 05:23:00* Test Item Value Reference Range Interpretation Comments Hematocrit (test code = 4544-3) 36.1 34.2-44.1 [facility]aMean Corpuscular Mdmycq3524-26-29 05:23:00* Test Item Value Reference Range Interpretation Comments Mean Corpuscular Volume (test code = 787-2) 81.9 81-99 [facility]Mean Corpuscular Odfjjchmep3906-12-34 05:23:00* Test Item Value Reference Range Interpretation Comments Mean Corpuscular Hemoglobin (test code = 785-6) 25.6 28-32 L [facility]aMean Corpuscular Hemoglobin Concent 2018-02-20 05:23:00* Test Item Value Reference Range Interpretation Comments Mean Corpuscular Hemoglobin Concent (test code = 786-4) 31.3 31-35 [facility]aRed Cell Distribution Ljzlf6817-01-62 05:23:00* Test Item Value Reference Range Interpretation Comments Red Cell Distribution Width (test code = 59596-9) 15.5 11.7 -14.4 H [facility]aPlatelet Rejxv8326-59-08 05:23:00* Test Item Value Reference Range Interpretation Comments Platelet Count (test code = 777-3) 289 140-360 [facility]aNeutrophils (%) (Auto)2018-02-20 05:23:00 * Test Item Value Reference Range Interpretation Comments Neutrophils (%) (Auto) (test code = 00131-5) 77.1 38.7-80.0 [facility]aLymphocytes (%) (Auto)2018-02-20 05:23:00 * Test Item Value Reference Range Interpretation Comments Lymphocytes (%) (Auto) (test code = 736-9) 13.8 18.0-39.1 L [facility]aMonocytes (%) (Auto)2018-02-20 05:23:00* Test Item Value Reference Range Interpretation Comments Monocytes (%) (Auto) (test code = 5905-5) 7.6 4.4-11.3 [facility]aEosinophils (%) (Auto)2018-02-20 05:23:00 * Test Item Value Reference Range Interpretation Comments Eosinophils (%) (Auto) (test code = 713-8) 0.5 0.0-6.0 [facility]aBasophils (%) (Auto)2018-02-20 05:23:00* Test Item Value Reference Range Interpretation Comments Basophils (%) (Auto) (test code = 706-2) 0.5 0.0-1.0 [facility]aIM GRANULOCYTES %2018-02-20 05:23:00* Test Item Value Reference Range Interpretation Comments IM GRANULOCYTES % (test code = IM GRANULOCYTES %) 0.5 0.0- 1.0 [facility]aNeutrophils # (Auto)2018-02-20 05:23:00* Test Item Value Reference Range Interpretation Comments Neutrophils # (Auto) (test code = 751-8) 9.0 2.1-6.9 H [facility]aLymphocytes # (Auto)2018-02-20 05:23:00* Test Item Value Reference Range Interpretation Comments Lymphocytes # (Auto) (test code = 08406-1) 1.6 1.0-3.2 [facility]aMonocytes # (Auto)2018-02-20 05:23:00* Test Item Value Reference Range Interpretation Comments Monocytes # (Auto) (test code = 742-7) 0.9 0.2-0.8 [facility]aEosinophils # (Auto)2018-02-20 05:23:00* Test Item Value Reference Range Interpretation Comments Eosinophils # (Auto) (test code = 711-2) 0.1 0.0-0.4 [facility]aBasophils # (Auto)2018-02-20 05:23:00* Test Item Value Reference Range Interpretation Comments Basophils # (Auto) (test code = 704-7) 0.1 0.0-0.1 [facility]aAbsolute Immature Granulocyte (auto 2018-02-20 05:23:00* Test Item Value Reference Range Interpretation Comments Absolute Immature Granulocyte (auto (mateo t code = Absolute Immature Granulocyte (auto) 0.06 0-0.1 [facility]aCT CHEST A3807-00-83 19:56:00 [facility] [address] [place] [address] Patient Name: GIOVANA FINNEY MR #: [id number] : 1945 Age/Sex: 72/F Req #: [id number] Adm Physician: VANESSA AVINA MD Ordered by: JANIE DE LA GARZA MD Report #: [id number] Locat ion: [facility] Room/Bed: [place] [address] Procedure: [id number] C T/CT CHEST W Exam Date: 02/19/18 Exam Time: 1929 REPORT STATUS: Signed EXAMINATION: CT scan of the chest with contrast. TECHNIQUE: Helical CT images of the chest were performed from the lung apices to the level of the adrenal glands after the intravenous administration of 100 cc of Isovue 300. Coronal and sagittal reformatted images were obtained. Dose modulation, iterative reconstruction, and/or weight based adjustment of the mA/kV was utilized to reduce the radiation dose to as low as reasonably achievable. COMPARISON: None. CLINICAL HISTORY:Chest pain, evaluate f or pulmonary embolism DISCUSSION: LINES/TUBES: None. LUNGS AND A IRWAYS: Diffuse upper lobe predominant pulmonary emphysema. No concerning cons olidations or masses. No filling defects within the pulmonary arteries. PLEURA: No pneumothorax or pleural effusions. HEART AND MEDIASTINUM: The thyroid gland is normal. Coronary artery calcifications. LYMPH NODES: There is no mediastinal, hilar or axillary lymphadenopathy. ABDOMEN: Parti ally visualized left renal cyst. Left adrenal thickening. Cholecystectomy clip s. Otherwise unremarkable partially visualized upper abdomen. BONES AND S OFT TISSUES: No acute bony abnormalities. IMPRESSION: No pulmonary em bolism. Pulmonary emphysema. Coronary artery calcifications. Sign ed by: Dr. Stephan Davis M.D. on 02/19/2018 8:01 PM Dictated By: STEPHAN DAVIS MD 00 Tra nscribed By: RUSS on 02/19/182000 COPY TO: JANIE DE LA GARZA MD Urine WLV8825-29-52 16:05:00* Test Item Value Reference Range Interpretation Comments Urine WBC (test code = 5821-4) 6-10 0-5 [facility]aU[facility] HGG6142-63-05 16:05:00* Test Item Value Reference Range Interpretation Comments Urine RBC (test code = 15198-2) 0-5 0-5 [facility]aU[facility] Zpopbqgb5985-78-38 16:05:00* Test Item Value Reference Range Interpretation Comments Urine Bacteria (test code = 75683-5) MANY NONE [facility]aUrine Epithelial Rqiow6003-70-94 16:05:00 * Test Item Value Reference Range Interpretation Comments Urine Epithelial Cells (test code = 81833-7) MANY NONE [facility]aU[facility] SSW1094-13-63 16:05:00* Test Item Value Reference Range Interpretation Comments Urine WBC (test code = 5821-4) 6-10 0-5 [facility]aU[facility] RBD3987-69-80 16:05:00* Test Item Value Reference Range Interpretation Comments Urine RBC (test code = 19327-6) 0-5 0-5 [facility] Wstcstsp0645-87-86 16:05:00* Test Item Value Reference Range Interpretation Comments Urine Bacteria (test code = 49252-5) MANY NONE [facility]aU[facility] Epithelial Agtwg3843-23-83 16:05:00 * Test Item Value Reference Range Interpretation Comments Urine Epithelial Cells (test code = 82542-4) [facility] Izfit1130-69-04 15:49:00* Test Item Value Reference Range Interpretation Comments Urine Color (test code = 5778-6) YELLOW YELLOW [facility] Ngsakct9812-94-81 15:49:00* Test Item Value Reference Range Interpretation Comments Urine Clarity (test code = 05865-2) HAZY CLEAR [facility]aU[facility] Specific Dnnpund1800-34-54 15:49:00 * Test Item Value Reference Range Interpretation Comments Urine Specific [place] (test code = 5811-5) 1.030 1.010-1.02 5 H [facility]aU[facility] bB0953-34-75 15:49:00* Test Item Value Reference Range Interpretation Comments Urine pH (test code = 81324-1) 5 5-7 [facility] Leukocyte Shqweclg5740-87-90 15:49:00* Test Item Value Reference Range Interpretation Comments Urine Leukocyte Esterase (test code = 5799-2) NEGATIVE NEGATIVE [facility] Yeuskjh3091-58-51 15:49:00* Test Item Value Reference Range Interpretation Comments Urine Nitrite (test code = 95368-0) NEGATIVE NEGATIVE [facility] Ejiefhi3614-04-68 15:49:00* Test Item Value Reference Range Interpretation Comments Urine Protein (test code = 5804-0) 2+ NEGATIVE H [facility]aU[facility] Glucose (UA)2018-02-19 15:49:00* Test Item Value Reference Range Interpretation Comments Urine Glucose (UA) (test code = 2349-9) NEGATIVE NEGATIVE [facility] Lxxkbvx3704-28-29 15:49:00* Test Item Value Reference Range Interpretation Comments Urine Ketones (test code = 80822-2) 1+ NEGATIVE H [facility] Dvvmnomobrii0616-58-59 15:49:00* Test Item Value Reference Range Interpretation Comments Urine Urobilinogen (test code = 44302-4) 0.2 0.2-1 [facility] Wgujkpymx6896-49-13 15:49:00* Test Item Value Reference Range Interpretation Comments Urine Bilirubin (test code = 1978-6) NEGATIVE NEGATIVE [facility] Vszpc2571-42-92 15:49:00* Test Item Value Reference Range Interpretation Comments Urine Blood (test code = 88636-8) TRACE NEGATIVE H [facility] Oqscy6221-33-80 15:49:00* Test Item Value Reference Range Interpretation Comments Urine Color (test code = 5778-6) YELLOW YELLOW [facility] Tacgtfn9435-59-41 15:49:00* Test Item Value Reference Range Interpretation Comments Urine Clarity (test code = 18802-8) HAZY CLEAR [facility] Specific Ysyabbw6707-77-50 15:49:00 * Test Item Value Reference Range Interpretation Comments Urine Specific [place] (test code = 5811-5) 1.030 1.010-1.02 5 H [facility]aU[facility] rR1830-08-96 15:49:00* Test Item Value Reference Range Interpretation Comments Urine pH (test code = 21631-9) 5 5-7 [facility] Leukocyte Unkjdsxr3502-16-57 15:49:00* Test Item Value Reference Range Interpretation Comments Urine Leukocyte Esterase (test code = 5799-2) NEGATIVE NEGATIVE [facility] Ardyqmc6590-74-14 15:49:00* Test Item Value Reference Range Interpretation Comments Urine Nitrite (test code = 91278-9) NEGATIVE NEGATIVE [facility] Zndxyil2173-24-42 15:49:00* Test Item Value Reference Range Interpretation Comments Urine Protein (test code = 5804-0) 2+ NEGATIVE H [facility]aU[facility] Glucose (UA)2018-02-19 15:49:00* Test Item Value Reference Range Interpretation Comments Urine Glucose (UA) (test code = 2349-9) NEGATIVE NEGATIVE [facility] Ydrbrcf8199-80-21 15:49:00* Test Item Value Reference Range Interpretation Comments Urine Ketones (test code = 86931-1) 1+ NEGATIVE H [facility] Ghzevwzspsjr8910-88-72 15:49:00* Test Item Value Reference Range Interpretation Comments Urine Urobilinogen (test code = 91070-1) 0.2 0.2-1 [facility] Fhaaawqyn2011-20-35 15:49:00* Test Item Value Reference Range Interpretation Comments Urine Bilirubin (test code = 1978-6) NEGATIVE NEGATIVE [facility] Wiitz2490-89-11 15:49:00* Test Item Value Reference Range Interpretation Comments Urine Blood (test code = 91249-2) TRACE NEGATIVE H [facility]aCHEST SINGLE (PORTABLE)2018-02-19 14:36:00 [facility] [address] [place] [address] Patient Name: GIOVANA FINNEY MR #: [id number] : 1945 Age/Sex: 72/F Req #: [id number] Adm Physician: Ordered by: JANIE DE LA GARZA MD Report #: [id number] Location: ER Room/Bed: Procedure: [id number] DX/CHEST SINGLE (PORTABLE) Exam Date: 02/19/18 Exam Time: [address] ATUS: Signed EXAMINATION: CHEST SINGLE (PORTABLE) INDICATION: S SOB COMPARISON: Chest x-ray 12/28/2017. CT chest 02/27/2017 FINDINGS: AP view TUBES and LINES: None. LUNGS: Lungs are well inflated. Lucency in both upper lobes consistent with severe emphysema. Slight increase in bilateral lung base air space opacities, left greater than the right. PLEURA: No pleural effusion or pneumothorax. HEART AND MEDIASTINUM: The cardiomediastinal silhouette is unremarkable. BONES AND SOFT TISSUES: No acute osseous lesion. Healed right rib fracture deformities. Soft tissues a re unremarkable. UPPER ABDOMEN: No free air under the diaphragm. I MPRESSION: Slight increase in bilateral lung bases, likely pneumonia superimp osed on emphysema. Signed by: Dr. Karson Pastor M.D. on 02/19/2018 2:37 PM Dictated By: KARSON PASTOR MD 1 437 Transcribed By: RUSS on 02/19/18 8803 COPY TO: JANIE DE LA GARZA MD D-Dimer Quantitative (PE/DVT)2018-02-19 14:16:00* Test Item Value Reference Range Interpretation Comments D-Dimer Quantitative (PE/DVT) (test code = 07474-3) 1.37 0. 00-0.45 H As with all in vitro diagnostic tests, the test results should be interpreted by the physician in conjunction with clinical findings and other test results.Test results are reported in NEW D-dimer units(ug/mLFEU).[facility]aD[facility] (PE/DVT)2018-02-19 14:16:00* Test Item Value Reference Range Interpretation Comments D-Dimer Quantitative (PE/DVT) (test code = 06839-6) 1.37 0. 00-0.45 H As with all in vitro diagnostic tests, the test results should be interpreted by the physician in conjunction with clinical findings and other test results.Test results are reported in NEW D-dimer units(ug/mLFEU).[facility]aD-Dimer Quantitative (PE/DVT)2018-02-19 14:16:00* Test Item Value Reference Range Interpretation Comments D-Dimer Quantitative (PE/DVT) (test code = 53999-8) 1.37 0. 00-0.45 H As with all in vitro diagnostic tests, the test results should be interpreted by the physician in conjunction with clinical findings and other test results.Test results are reported in NEW D-dimer units(ug/mLFEU).[facility]aD-Dimer Quantitative (PE/DVT)2018-02-19 14:16:00* Test Item Value Reference Range Interpretation Comments D-Dimer Quantitative (PE/DVT) (test code = 64805-2) 1.37 0. 00-0.45 H As with all in vitro diagnostic tests, the test results should be interpreted by the physician in conjunction with clinical findings and other test results.Test results are reported in NEW D-dimer units(ug/mLFEU).[facility]aB-Type Natriuretic Mepbutl7844-24-68 14:15:00* Test Item Value Reference Range Interpretation Comments B-Type Natriuretic Peptide (test code = 52060-5) 22.0 0-100 [facility]aB-Type Natriuretic Yjorlyh9168-91-98 14:15:00* Test Item Value Reference Range Interpretation Comments B-Type Natriuretic Peptide (test code = 18739-3) 22.0 0-100 [facility]aHemoglobin A1c Pkihhlz3874-38-18 14:01:00 * Test Item Value Reference Range Interpretation Comments Hemoglobin A1c Percent (test code = Hemoglobin A1c Percent) 5.3 4.0-7.0 [facility]aHemoglobin A1c Zjdxvva1239-93-81 14:01:00 * Test Item Value Reference Range Interpretation Comments Hemoglobin A1c Percent (test code = Hemoglobin A1c Percent) 5.3 4.0-7.0 [facility]aHemoglobin A1c Sprvfgb5984-32-81 14:01:00 * Test Item Value Reference Range Interpretation Comments Hemoglobin A1c Percent (test code = Hemoglobin A1c Percent) 5.3 4.0-7.0 [facility]aHemoglobin A1c Cetazng1319-28-94 14:01:00 * Test Item Value Reference Range Interpretation Comments Hemoglobin A1c Percent (test code = Hemoglobin A1c Percent) 5.3 4.0-7.0 [facility]aBedside Nskzoyy3107-49-82 12:02:00* Test Item Value Reference Range Interpretation Comments Bedside Glucose (test code = 77052-5) 130 70-120 H Meter ID: [id number] Hospital AtascosaHemoglobin2018-07-17 05:44:00* Test Item Value Reference Range Interpretation Comments Hemoglobin (test code = 13097-1) 9.6 12.0-16.0 L [facility]aHematocrit2018-07-17 05:44:00* Test Item Value Reference Range Interpretation Comments Hematocrit (test code = 4544-3) 29.7 34.2-44.1 L [facility]aPELVIS AP 1-2 OAGOJ4982-27-60 11:05:00 [facility] [address] [address] Patient Name: GIOVANA FINNEY MR #: [id number] : 1945 Age/Sex: 72/F Req #: [id number] Adm Physician: Ordered by: BAN LAGOS MD Report #: [id number] Location: OR Room/Bed: Procedure: [id number] DX/PELVIS AP 1-2 VIEWS Exam D ate: 12/31/17 Exam Time: 1015 REPORT STATUS: Si gned PROCEDURE: X-RAY PELVIS, AP VIEW COMPARISON: None. INDIC ATIONS: POST OP FINDINGS: See conclusion. CONCLUSION: Expected postoperative changes at the left hip arthroplasty, marked by soft tissue emphysema, edema, and overlying skin janeth. The hardware is intact. Dictated by: Amilcar Masterson M.D. on 12/31/2017 at 11:05 Electr onically approved by: Amilcar Masterson M.D. on 12/31/2017 at 11:05 Dictated By: AMILCAR MASTERSON MD 1105 Transcribed By: WANDA on 12/31/17 1105 COPY TO: Mikie LAGOS MD CHEST 2 TVTCK7795-43-06 12:38:00 [place] [address] Patient Name: GIOVANA FINNEY MR #: [id number] : 1945 Age/Sex: 72/F Req #: [id number] Adm Physician: Ordered by: LUIZA LOPES MD Report #: [id number] Location: OR Room/Bed: Procedure: [id number] DX/CHEST 2 VIEWS Exam Date: Exam Time: 1120 REPORT STATUS: Signed PRO CEDURE: X-RAY CHEST, TWO VIEWS COMPARISON: [facility], , CHEST 2 VIEWS, 02/19/2017, 12:24. INDICATIONS: PREOPERATIVE CHEST XRAY FOR LEFT HI P SURGERY FINDINGS: LUNGS: Diffusely hyperinflated consistent with COPD. No mass or infiltrate. Mild apical pleural-parenchymal thickening is s table. Vascular markings are normal. PLEURA: No effusions or pneumot horax. HEART T MEDIASTINUM: The heart is within normal size-limits. BONES T SOFT TISSUES: The bones are diffusely demineralized. Fusion janet dware in the upper lumbar spine is stable and incompletely imaged. Degenerati ve changes of the left shoulder are stable. CONCLUSION: St able pulmonary hyperinflation suggestive of COPD. No acute cardiopulmonary pr ocess. Dictated by: Babatunde Duncan M.D. on 12/28/2017 at 12:38 E lectronically approved by: Babatunde Duncan M.D. on 12/28/2017 at 12:38 Dictated By: BABATUNDE DUNCAN MD 1238 Transcribed By: WANDA on 12/28/17 1238 COPY TO: LUIZA LOPES MD Sodium Epafg2140-77-95 10:53:00* Test Item Value Reference Range Interpretation Comments Sodium Level (test code = 2951-2) 140 136-145 [facility]aPotassium Rsxge9696-99-65 10:53:00* Test Item Value Reference Range Interpretation Comments Potassium Level (test code = 2823-3) 4.4 3.5-5.1 [facility]aChloride Zralj2812-62-49 10:53:00* Test Item Value Reference Range Interpretation Comments Chloride Level (test code = 2075-0) 101 98-107 [facility]aCarbon Dioxide Myfwj0269-27-40 10:53:00* Test Item Value Reference Range Interpretation Comments Carbon Dioxide Level (test code = 2028-9) 29 22-29 [facility]aAnion Ppx1901-95-80 10:53:00* Test Item Value Reference Range Interpretation Comments Anion Gap (test code = 17651-9) 14.4 8-16 [facility]aBlood Urea Hnlvjnpd6018-57-69 10:53:00* Test Item Value Reference Range Interpretation Comments Blood Urea Nitrogen (test code = 3094-0) 18 7-26 [facility]aCreatinine2018-07-13 10:53:00* Test Item Value Reference Range Interpretation Comments Creatinine (test code = 2160-0) 0.76 0.57-1.11 [facility]aBUN/Creatinine Wctpl0633-37-48 10:53:00* Test Item Value Reference Range Interpretation Comments BUN/Creatinine Ratio (test code = 3097-3) 24 6-25 [facility] AtascosaEstimat Glomerular Filtration Rate 2017-12-28 10:53:00* Test Item Value Reference Range Interpretation Comments Estimat Glomerular Filtration Rate (test code = 03053-0) 60- >60 Ranges were taken from the National Kidney Disease Education Program and the [facility] literature.Reference ranges:60 or greater: Hranfg12-13 ( for 3 consecutive months): Chronic kidney disease 15 or less: Kidney failureMethodist Hospital AtascosaGlucose Ploaq6391-06-12 10:53:00* Test Item Value Reference Range Interpretation Comments Glucose Level (test code = KYO0037) 84 74-118 [facility]aCalcium Gputf3716-91-21 10:53:00* Test Item Value Reference Range Interpretation Comments Calcium Level (test code = 01779-4) 9.4 8.4-10.2 [facility]aWhite Blood Lwkyo7295-22-90 10:41:00* Test Item Value Reference Range Interpretation Comments White Blood Count (test code = 6690-2) 8.65 4.8-10.8 [facility]aRed Blood Yjwrr9640-70-63 10:41:00* Test Item Value Reference Range Interpretation Comments Red Blood Count (test code = 789-8) 4.07 3.6-5.1 [facility]aMean Corpuscular Tqgjio2703-89-57 10:41:00* Test Item Value Reference Range Interpretation Comments Mean Corpuscular Volume (test code = 787-2) 87.0 81-99 [facility]aMean Corpuscular Rjdgzkbhjo3474-24-07 10:41:00* Test Item Value Reference Range Interpretation Comments Mean Corpuscular Hemoglobin (test code = 785-6) 26.5 28-32 L [facility]aMean Corpuscular Hemoglobin Concent 2017-12-28 10:41:00* Test Item Value Reference Range Interpretation Comments Mean Corpuscular Hemoglobin Concent (test code = 786-4) 30.5 31-35 L [facility] AtascosaRed Cell Distribution Hhapl7990-09-85 10:41:00* Test Item Value Reference Range Interpretation Comments Red Cell Distribution Width (test code = 64528-1) 13.4 11.7 -14.4 [facility] [id number] 10:41:00* Test Item Value Reference Range Interpretation Comments Platelet Count (test code = 777-3) 219 140-360 [facility] (%) (Auto)2017-12-28 10:41:00 * Test Item Value Reference Range Interpretation Comments Neutrophils (%) (Auto) (test code = 91267-7) 73.6 38.7-80.0 [facility] (%) (Auto)2017-12-28 10:41:00 * Test Item Value Reference Range Interpretation Comments Lymphocytes (%) (Auto) (test code = 736-9) 13.9 18.0-39.1 L [facility] (Auto)2017-12-28 10:41:00* Test Item Value Reference Range Interpretation Comments Monocytes (%) (Auto) (test code = 5905-5) 7.7 4.4-11.3 [facility] (Auto)2017-12-28 10:41:00 * Test Item Value Reference Range Interpretation Comments Eosinophils (%) (Auto) (test code = 713-8) 3.1 0.0-6.0 [facility] (Auto)2017-12-28 10:41:00* Test Item Value Reference Range Interpretation Comments Basophils (%) (Auto) (test code = 706-2) 0.8 0.0-1.0 [facility] %2017-12-28 10:41:00* Test Item Value Reference Range Interpretation Comments IM GRANULOCYTES % (test code = IM GRANULOCYTES %) 0.9 0.0- 1.0 [facility]utrophils # (Auto)2017-12-28 10:41:00* Test Item Value Reference Range Interpretation Comments Neutrophils # (Auto) (test code = 751-8) 6.4 2.1-6.9 [facility]ymph[facility] # (Auto)2017-12-28 10:41:00* Test Item Value Reference Range Interpretation Comments Lymphocytes # (Auto) (test code = 45842-9) 1.2 1.0-3.2 [facility] # (Auto)2017-12-28 10:41:00* Test Item Value Reference Range Interpretation Comments Monocytes # (Auto) (test code = 742-7) 0.7 0.2-0.8 [facility] # (Auto)2017-12-28 10:41:00* Test Item Value Reference Range Interpretation Comments Eosinophils # (Auto) (test code = 711-2) 0.3 0.0-0.4 [facility] # (Auto)2017-12-28 10:41:00* Test Item Value Reference Range Interpretation Comments Basophils # (Auto) (test code = 704-7) 0.1 0.0-0.1 [facility]aAbsolute Immature Granulocyte (auto 2017-12-28 10:41:00* Test Item Value Reference Range Interpretation Comments Absolute Immature Granulocyte (auto (mateo t code = Absolute Immature Granulocyte (auto) 0.08 0-0.1 [facility] [address] [address] Patient Name: GIOVANA FINNEY MR #: [id number] : 1945 Age/Sex: 71/F Req #: [id number] Adm Physician: Ordered by: MARILU WAITE MD Report #: [id number] Location: CT Room/Bed: Procedure: [id number] CT/CT CHEST W Exam Date: Exam Time: 1855 REPORT STATUS: Signed EXA M: CT Chest WITH contrast INDICATION: Chest pain COMPARISON: None avai lable TECHNIQUE: Chest was scanned utilizing a multidetector helical scann from the lung apex through the level of the diaphragm after administration of IV contrast. Coronal and sagittal reconstructions were submitted for inte rpretation. Protocol: CT chest with contrast general survey IV CON TRAST: 100 mL of Omnipaque 350 COMPLICATIONS: None RADIATION DOSE: Total exam DLP: 490.5 mGy*cm. CTDIvol has been reviewed. It is below the limits set by the Radiation Protocol Committee (RPC). FINDINGS: LINES/ TUBES: N one. Heart: No cardiomegaly. No pericardial effusion. Vessels: No in traluminal filling defect within the pulmonary arteries to the segmental level . Normal thoracic aorta and coronary arteries. Mediastinum: No mediastin al or hilar mass or lymphadenopathy. Normal thyroid. Calcified lymph nodes ar e present in the left hilum, series 2 image 44. Minimal nonspecific soft tissu e density is present in the right hilum, series 2 image 49. Prominent soft tis bradley density with fat attenuation is present in the superior mediastinum, serie s 2 image 42. Lungs: No parenchymal mass. No focal consolidation. Multipl e bullae are present in the bilateral upper and lower lobes. Bronchiectasis is present in the right middle lobe and the bilateral upper lobes. Pleura: No pleural effusion. No pneumothorax. Soft tissues: Normal. No axillary mass or lymphadenopathy. Bones: No acute osseous abnormality. Degenerative changes of the thoracic spine. Adrenal glands: No adrenal nodules.. Abdomen: The partially visualized portions of the upper abdomen are unremar kable.. Simple cyst is present in the left kidney. Cholecystectomy. IMPRESS ION: 1. No evidence of pulmonary arterial embolism or thrombosis to the [facility] ental level. 2. Emphysematous changes. 3. Soft tissue density in the rig ht hilum may represent small reactive lymph nodes. No lymphadenopathy. Signed by: Dr. Vanessa Akins M.D. on 02/27/2017 7:51 PM Dictated By: VANESSA AKINS MD 50 Transcribed By: RUSS on 02/27/171950 COPY TO: MARILU WAITE MD CHEST 2 VIEWS [place] [address] Patient Name: GIOVANA FINNEY MR #: [id number] : 1945 Age/Sex: 71/F Req #: [id number] Adm Physician: Ordered by: AKIKO GAMBOA MD Report #: [id number] Location: ER Room/Bed: Procedure: [id number] DX/CHEST 2 VIEWS Exam Date: 02/19/17 Exam Time: 1230 REPORT STATUS: Signed EXAMINATION: CHEST 2 VIEWS INDICATION: COMP ARISON: Chest radiograph from 04/27/2016 FINDINGS: PA and lateral vi ews TUBES and LINES: None. LUNGS: Lungs are hyperinflated. Interval decrease prominence of the interstitial lungs. Still persistent mild bronch iectasis in both lower lobes and diffuse cystic changes in the lungs suggestiv e of interstitial lung disease and/or emphysema. PLEURA: No pleural effu nina or pneumothorax. HEART AND MEDIASTINUM: The cardiomediastinal silhoue tte is unremarkable. BONES AND SOFT TISSUES: Partially visualized hard ruiz for fixation of the upper lumbar spine. Right upper quadrant cholecystec buck clips. UPPER ABDOMEN: No free air under the diaphragm. IMPRES NINA: Improved bilateral interstitial lung markings suggestive of improving e cornelia or infection. No new consolidations. Signed by: Dr. Caren Nair M.D. on 02/19/2017 1:20 PM Dictated By: CAREN NAIR MD 1320 Trans cribed By: RUSS on 02/19/17 1320 COPY TO: AKIKO GAMBOA MD
--- OUTSIDE RECORDS SUMMARY | 2020-04-22 18:54 | XMS REPORT | Continuity of Care Document ---
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 Problem [facility] Major depressive disorder, Recurrent episode, Severe Active Problem 04/13/2020 [facility] Unspecified anxiety disorder A ctive Problem [facility] Medications Medication Details Route Status Patient Instructions Ordering Provider Order Date Source BuPROPion HCl (SR) 1 tablet in the morning and 1 tablet early afternoon, not after 3pm Orally Active 150 MG Orally as direct ed [place] 11/28/2019 [facility] BusPIRone HCl 1 tablet Orally Active 5 MG Orally Three times a day [place] 09/03/2019 [facility] BuPROPion HCl (SR) 1 tablet in the morning Orally Active 150 MG Orally Once a day [place] 07/24/2019 [facility] Trintellix 1 tablet Orally Active 10 MG Orally Once a day [place] 04/28/2019 [facility] Metformin HCl 1 tablet with a meal Orally Active 500 MG Orally twice a day [facility] Trintellix 1 tablet Orally Active 20 MG Orally Once a day [facility] Rosuvastatin Calcium 1 tablet Orally Active 5 MG Orally Once a day [facility] Trazodone HCl 1 1/2-2 tablets at bedtime as needed Orally Active 100 MG Orally Once a day [facility] BuPROPion HCl (SR) 1 tablet in the morning and 1 tablet early afternoon, not after 3pm Orally Active 200 MG Orally as direct ed [facility] Atorvastatin Calcium not defin ed NA Active [facility] BusPIRone HCl 1 tablet Orally Active 5 MG Orally Three times a day [facility] Fluticasone Propionate not def ined NA Active [facility] Metformin HCl not defined NA Active [facility] BuPROPion HCl (XL) 1 tablet in the morning Orally Active 150 MG Orally Once a day [facility] Sertraline HCl 2 tablets Orally Active 100 MG Orally Once a da y [facility] Trintellix 1 tablet Orally Active 10 MG Orally Once a day [place] [facility]arlyn rodr[facility] BuPROPion HCl (SR) 2 tablets i n the morning Orally Active 150 MG Orally Once a day [facility] Allergies, Adverse Reactions, Alerts Substance Category Reaction Severity Reaction type Status Date Reported Comments Source N.K.D.A. Adverse Reaction Info Not Available Adverse Reaction 04/28/2019 [facility] Immunizations No Data Provided for This Section [...] Value Date Comments Source Weight 142 01/29/2020 [facility] Weight 135 12/30/2019 [facility] Weight 140 11/28/2019 [facility] Weight 140 10/31/2019 [facility] Weight 136.2 07/24/2019 [facility] Height 64 0 07/24/2019 [facility] Heart Rate 105 07/24/2019 [facility] Diastolic (mm Hg) 80 07/24/2019 [facility] Systolic (mm Hg) 176 07/24/2019 [facility] Weight 141.6 06/23/2019 [facility] Height 64 0 06/23/2019 [facility] Heart Rate 87 06/23/2019 [facility] Diastolic (mm Hg) 80 06/23/2019 [facility] Systolic (mm Hg) 191 06/23/2019 [facility] Encounters No Data Provided for This Section [...]
--- OUTSIDE RECORDS SUMMARY | 2020-04-22 18:55 | XMS REPORT | Continuity of Care Document ---
Author Author [facility] t Organization [facility] Address [facility] [address] [place] [address] Phone Unavailable Care Team Providers Care Day Habilitation Supervisor Name Role Phone SHEKHAR MUNOZ MD PCP VANESSA AVINA Attphys Unavailable MARILU WAITE Attphys Unavailable Whit GAMBOA Attphys Unavailable HOLLIOk CAZARES Attphys Unavailable BAN LAGOS Attphys Unavailable VANESSA AVINA Admphys Unavailable RAVINDRAMARILU Admphys Unavailable Payers Payer Name Policy Type Policy Number Effective Date Expiration Date Romain pizarro [facility] [id number] 2018 00:00:00 [facility] [employer] Medicare Advantage [id number] [facility] [place] [employer] [id number] 2018 00:00:00 [facility] Problems Condition Name Condition Details Condition Category Status Onset Date Resolution Date Last Treatment Date Treating Clinician Comments Source Confusion Confusion Problem Active [facility] Hypokalemia Hypokalemia Problem Active [facility] Seizure Seizure Problem Active [facility] Chest pain Chest pain Problem Active [facility] Hypertension Hypertension Problem Active 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 Active Problem 04/13/2020 [facility] Problem Active 2020-04-13 02:45:09 Janett Barnes Major depressive disorder, Recurrent episode, Severe Major depressive disorder, Recurrent episode, Severe Active Problem 04/13/2020 [facility] Problem Active 2020-04-13 02:45:09 Mikel Barnes Unspecified anxiety disorder U nspecified anxiety disorder Active Problem 04/13/2020 [facility] Problem Active 2020-04-13 02:45:09 Mikel Barnes Allergies, Adverse Reactions, Alerts Allergy Name Allergy Type Status Severity Reaction(s) Onset Date Inacti ve Date Treating Clinician Comments Source KimberliA. NRao Active Info Not Available 2019-04-28 00:[facility]00 [facility] Pen[facility] Allergy to Substance Active Mild ITCHING, RASH 2017-02-19 00:00:00 [facility] Medications Ordered Medication Name Filled Medication Name Start Date Stop Da te Current Medication? Ordering Clinician Indication Dosage Frequency Signature (SIG) Comments Components Source Trazodone HCl 2020-04-13 02:45:09 Yes Aye Cruzan 1 1/2-2 tablets at bedtime as needed [facility] Atorvastatin Calcium 2020-04-13 02:45:09 Yes Aye maean not defined [facility] Fluticasone Propionate 2020-04-13 02:45:09 Yes Aye ortizan not defined [facility] Metformin HCl 2020-04-13 02:45:09 Yes Aye Cruzan not defined [facility] BuPROPion HCl (XL) 2020-04-13 02:45:09 Yes Aye Cruz an 1 tablet in the morning [facility] Sertraline HCl 2020-04-13 02:45:09 Yes Aye Harriskman 2 tablets [facility] Metformin HCl 2020-02-03 02:45:56 Yes Aye Cruzan 1 tablet with a meal [facility] Trintellix 2020-02-03 02:45:56 Yes Aye Harriskman 1 tablet [facility] Rosuvastatin Calcium 2020-02-03 02:45:56 Yes Aye Harriskman 1 tablet [facility] BuPROPion HCl (SR) 2020-02-03 02:45:56 Yes Aye Harriskm an 1 tablet in the morning and 1 tablet early afternoon, not after 3pm [facility] BusPIRone HCl 2020-02-03 02:45:56 Yes Aye Adames 1 tablet [facility] BuPROPion HCl (SR) 2020-02-03 02:45:54 Yes Ayegage Harriskm an 2 tablets in the morning [facility] Trintellix 2020-02-03 02:45:47 Yes Aye Adames 1 tablet [facility] BuPROPion HCl (SR) 2019-11-28 00:00:00 Yes Aye Cruz an 1 tablet in the morning and 1 tablet early afternoon, not after 3pm [facility] BusPIRone HCl 2019-09-03 00:00:00 Yes Aye Cruzan 1 tablet [facility] BuPROPion HCl (SR) 2019-07-24 00:00:00 Yes Aye Cruz an 1 tablet in the morning [facility] Trintellix 2019-04-28 00:00:00 Yes Aye Cruzan 1 tablet [facility] Aspirin 325 Mg Tablet, 325 Mg Oral Aspirin 325 Mg Tablet, 32 5 Mg Oral 2018-01-01 00:00:00 2018-02-19 00:00:00 No Horacio Riley Pa [address] [facility] Albuterol Sulfate 2.5 Mg/3 Ml Vial.neb Albuterol Sulfate 2.5 Mg/ 3 Ml Vial.neb Yes 3 Every 4 Hours as needed for Shor tness Of Breath [facility] Albuterol Sulfate (Ventolin Hfa) 18 Gm Hfa.aer.ad Albu terol Sulfate (Ventolin Hfa) 18 Gm Hfa.aer.ad Yes 2 Ev felix 4 Hours as needed for Shortness Of Breath [facility] Atorvastatin Calcium 20 Mg Tablet Atorvastatin Calcium 20 Mg Tablet Yes [address] [facility] Budesonide/Formoterol Fumarate (Symbicor t 160-4.5 Mcg Inhaler) 10.2 Gm Hfa.aer.ad Budesonide/Formoterol Fumarate (Symbicor t 160-4.5 Mcg Inhaler) 10.2 Gm Hfa.aer.ad Yes [address] [facility] Bupropion Hcl (Bupropion Xl) 150 Mg Tab.er.24h Bupropi on Hcl (Bupropion Xl) 150 Mg Tab.er.24h Yes 150 Daily [facility] Dicyclomine Hcl 20 Mg Tablet Dicyclomine Hcl 20 Mg Tablet Y es 20 Three Times A Day as needed for Abdominal Pain [facility] Donepezil Hcl (Aricept) 5 Mg Tablet Donepezil Hcl (Aricept) 5 Mg Tabl et Yes 10 Bedtime [facility] Gabapentin 300 Mg Capsule Gabapentin 300 Mg Capsule Yes 300 Three Times A Day [facility] Lisinopril 2.5 Mg Tablet Lisinopril 2.5 Mg Tablet Yes [address] [facility] Metformin Hcl 500 Mg Tablet Metformin Hcl 500 Mg Tablet Yes 500 Twice A Day [facility] Prednisone 20 Mg Tab Prednisone 20 Mg Tab Yes 20 Daily [facility] Sertraline Hcl 100 Mg Tablet Sertraline Hcl 100 Mg Tablet Y es 100 Twice A Day [facility] Trazodone Hcl 50 Mg Tablet Trazodone Hcl 50 Mg Tablet Yes 100 Bedtime [facility] Levofloxacin (Levaquin) 250 Mg Tablet, 250 Mg Oral Lev ofloxacin (Levaquin) 250 Mg Tablet, 250 Mg Oral 2018-08-22 00:00:[address] [facility] Atorvastatin Calcium 20 Mg Tablet, 20 Mg Oral Atorvast atin Calcium 20 Mg Tablet, 20 Mg Oral 2018-07-15 00:00:00 No 20 Bedtime [facility] Bupropion Hcl 100 Mg Tablet, 150 Mg Oral Bupropion Hcl 100 Mg Tablet, 150 Mg Oral 2018-07-15 00:00:00 No 150 Daily [facility] Fluoxetine Hcl 20 Mg Tablet, 20 Mg Oral Fluoxetine Hcl 20 Mg Tablet, 20 Mg Oral 2018-07-15 00:00:00 No 20 Daily [facility] Oxcarbazepine 150 Mg Tablet, 150 Oxcarbazepine 150 Mg Tablet, 15 0 2018-07-15 00:00:00 No [address] [facility] Prednisone 20 Mg Tab, 20 Mg Oral Prednisone 20 Mg Tab, 20 Mg Ora l 2018-07-15 00:00:00 No [address] [facility] Sertraline Hcl 100 Mg Tablet, 100 Mg Oral Sertraline H cl 100 Mg Tablet, 100 Mg Oral 2018-07-15 00:00:[address] [facility] Bupropion Hcl (Bupropion Xl) 150 Mg Tab.er.24h, 150 Mg Oral Bupropion Hcl (Bupropion Xl) 150 Mg Tab.er.24h, 150 Mg Oral 2018-02-19 00:00:[address] [facility] Calcium Carb & Cit/Vitamin D3 (Citracal + D Er Tablet) 1 Each Tablet.er, 1 Tab Oral Calcium Carb & Cit/Vitamin D3 (Citracal + D Er Tablet) 1 Each Tablet.er, 1 Tab Oral 2018-02-19 00:00:[address] [facility] Citalopram Hydrobromide (Citalopram Hbr) 20 Mg Tablet, 20 Mg Oral Citalopram Hydrobromide (Citalopram Hbr) 20 Mg Tablet, 20 Mg Oral 00:00:00 No 20 Daily [facility] Donepezil Hcl (Aricept) 5 Mg Tablet, 10 Mg Oral Donepe zil Hcl (Aricept) 5 Mg Tablet, 10 Mg Oral 2018-02-19 00:00:[address] [facility] Eszopiclone (Lunesta) 2 Mg Tablet, 2 Mg Oral Eszopiclo ne (Lunesta) 2 Mg Tablet, 2 Mg Oral 2018-02-19 00:00:[address] [facility] Sertraline Hcl 100 Mg Tablet, 100 Mg Oral Sertraline H cl 100 Mg Tablet, 100 Mg Oral 2018-02-19 00:00:00 No [address] [facility] Trazodone Hcl 50 Mg Tablet, 100 Mg Oral Trazodone Hcl 50 Mg Tablet, 100 Mg Oral 2018-02-19 00:00:[address] [facility] Cholecalciferol (Vitamin D3) (Decara) 25,000 Unit Caps ule, 55206 Units Oral Cholecalciferol (Vitamin D3) (Decara) 25,000 Unit Capsule, 88915 Units Oral 2017-12-28 00:00:[address] [facility] Lamotrigine 100 Mg Tablet, 25 Mg Oral Lamotrigine 100 Mg Tablet, 25 Mg Oral 2017-12-28 00:00:[address] [facility] Quetiapine Fumarate 100 Mg Tablet, 100 Mg Oral Quetiap ine Fumarate 100 Mg Tablet, 100 Mg Oral 2017-12-28 00:00:[address] [facility] Duloxetine Hcl (Cymbalta) 30 Mg Capsule.dr, 60 Mg Oral Duloxetine Hcl (Cymbalta) 30 Mg Capsule.dr, 60 Mg Oral 2016-04-27 00:00:[address] [facility] Gemfibrozil (Lopid) 600 Mg Tablet, 600 Mg Oral Gemfibr ozil (Lopid) 600 Mg Tablet, 600 Mg Oral 2016-04-27 00:00:00 No [address] [facility] Topiramate 100 Mg Tablet, 100 Mg Oral Topiramate 100 Mg Tablet, 100 Mg Oral 2016-04-27 00:00:[address] [facility] Amlodipine Besylate 5 Mg Tablet, 5 Mg Oral Amlodipine Besylate 5 Mg Tablet, 5 Mg Oral 2014-08-07 00:00:00 No [address] [facility] Benztropine Mesylate (Cogentin) 1 Mg/1 Ml Amp, Benztro pine Mesylate (Cogentin) 1 Mg/1 Ml Amp, 2014-08-07 00:00:[address] [facility] Hydrocodone Bit/Acetaminophen ([place] 10-325 Tablet) 1 Each Tablet, 1 Tab Oral Hydrocodone Bit/Acetaminophen ([place] 10-325 Tablet) 1 Each Tablet, 1 Tab Oral 2014-08-07 00:00:00 No [address] [facility] Levothyroxine Sodium (Levoxyl) 25 Mcg Tablet, 25 Mcg O ral Levothyroxine Sodium (Levoxyl) 25 Mcg Tablet, 25 Mcg Oral 2014-08-07 00:00:[address] [facility] Morphine Sulfate (Morphine Sulfate Er) 15 Mg Tablet.er , 15 Mg Oral Morphine Sulfate (Morphine Sulfate Er) 15 Mg Tablet.er, 15 Mg Oral 20 02-08-19 00:00:00 No 15 Every 12 Hours [facility] Paroxetine Mesylate (Pexeva) 30 Mg Tablet, 30 Mg Oral Paroxetine Mesylate (Pexeva) 30 Mg Tablet, 30 Mg Oral 2014-08-07 00:00:[address] [facility] Quetiapine Fumarate 50 Mg Tablet, 50 Mg Oral Quetiapin e Fumarate 50 Mg Tablet, 50 Mg Oral 2014-08-07 00:00:[address] [facility] Amlodipine Bes/Olmesartan Med (Stephanie 5-20 Mg Tablet) 1 Each Tablet, Oral Amlodipine Bes/Olmesartan Med (Stephanie 5-20 Mg Tablet) 1 Each Tablet, Oral 2013-07-24 00:00:[address] [facility] Hydrocodone Bit/Acetaminophen (Co-Gesic 5-500 Tablet) 1 Each Tablet, Oral Hydrocodone Bit/Acetaminophen (Co-Gesic 5-500 Tablet) 1 Each Tablet, Oral 2013-07-24 00:00:[address] [facility] Linzess , 290 Mcg Oral Linzess , 290 Mcg Oral 2013-07-24 00:00:[address] [facility] Trazodone Hcl 100 Mg Tablet, 100 Mg Oral Trazodone Hcl 100 Mg Tablet, 100 Mg Oral 2013-07-24 00:00:00 No [address] [facility] Benztropine Mesylate 1 Mg Tablet, 1 Mg Oral Benztropin e Mesylate 1 Mg Tablet, 1 Mg Oral 2013-06-19 00:00:[address] [facility] Hydrocodone Bit/Acetaminophen (Hydrocodo n-Acetaminophn 10-325) 1 Each Tablet, 10 - 325 Mg Oral Hydrocodone Bit/Acetaminophen (Hydrocodo n-Acetaminophn 10-325) 1 Each Tablet, 10 - 325 Mg Oral 2013-06-19 00:00:[address] [facility] Lamotrigine (Lamictal) 100 Mg Tablet, 100 Mg Oral Lamo trigine (Lamictal) 100 Mg Tablet, 100 Mg Oral 2013-06-19 00:00:00 No [address] [facility] Morphine Sulfate (Ms Contin) 60 Mg Tablet.sa, 30 Mg Or al Morphine Sulfate (Ms Contin) 60 Mg Tablet.sa, 30 Mg Oral 2013-06-19 00:00:00 No 30 Twice A Day [facility] Omeprazole 40 Mg Capsule., 40 Mg Oral Omeprazole 40 Mg Cap kadie.dr, 40 Mg Oral 2013-06-19 00:00:00 No 40 Daily [facility] Paroxetine Hcl (Paxil) 30 Mg Tablet, 30 Mg Oral Paroxe taiwo Hcl (Paxil) 30 Mg Tablet, 30 Mg Oral 2013-06-19 00:00:00 No 30 Rt Da everett [facility] Polyethylene Glycol 3350 (Miralax) 17 Gm Powd.pack, 17 Gm Oral Polyethylene Glycol 3350 (Miralax) 17 Gm Powd.pack, 17 Gm Oral 2013-06-19 00:00:00 No 17 Daily [facility] Quetiapine Fumarate 25 Mg Tablet, 25 Mg Oral Quetiapin e Fumarate 25 Mg Tablet, 25 Mg Oral 2013-06-19 00:00:00 No 25 Bedtime [facility] Sennosides/Docusate Sodium (Senokot-S Tablet) 1 Each T ablet, 2 Tab Oral Sennosides/Docusate Sodium (Senokot-S Tablet) 1 Each Tablet, 2 Tab Oral 2013-06-19 00:00:00 No 2 Bedtime [facility] Vital Signs Vital Name Observation Time Observation Value Comments Source Weight 2020-01-29 19:15:00 [facility] Weight 2019-12-30 19:15:00 [facility] Weight 2019-11-28 15:45:00 [facility] Weight 2019-10-31 16:00:00 [facility] Weight 2019-07-24 17:45:00 [facility] Height 2019-07-24 17:45:00 [facility] Heart Rate 2019-07-24 17:45:00 [facility] Diastolic (mm Hg) 2019-07-24 17:45:00 [facility] [place] Systolic (mm Hg) 2019-07-24 17:45[facility] 2019-06-23 21:30:00 [facility] [place] Height 2019-06-23 21:30:00 [facility] [place] Heart Rate 2019-06-23 21:30:00 [facility] Diastolic (mm Hg) 2019-06-23 21:30:00 Mem [facility] [place] Systolic (mm Hg) 2019-06-23 21:30:00 Amos [facility] [place] Procedures Procedure Date / Time Performed Performing Clinician [facility] e X-ray of chest, two views 2018-08-29 00:00:[address] [facility] X-ray of chest, two views 2018-08-22 00:00:[address] [facility] X-ray of chest, two views 2018-07-13 00:00:00 MARILU WAITE [facility] Computed tomography of chest with contrast 2018-07-13 00:00:[address] [facility] Computed tomography of chest with contrast 2018-02-19 00:00: [address] [facility] REPLACE L HIP JT W CERAMIC ON POLY, CEMENT, OPEN 2017-12-31 00:00:[address] [facility] X-ray of chest, two views 2017-12-28 00:00:00 LUIZA LOPES CH, I [facility] Encounters Start Date/Time End Date/Time En[facility] ID Source 2020-01-29 14:15:00 2020-01-29 14:15:00 Outpatient NIECY SAAVEDRA [id number] [employer] 2019-12-30 14:15:00 2019-12-30 14:15:00 Outpatient NIECY SAAVEDRA [id number] [employer] 2019-11-28 10:45:00 2019-11-28 10:45:00 Outpatient NIECY SAAVEDRA [id number] [employer] 2019-10-31 11:00:00 2019-10-31 11:00:00 Outpatient NIECY SAAVEDRA [id number] [employer] 2019-10-01 11:00:00 2019-10-01 11:00:00 Outpatient NIECY SAAVEDRA [id number] [employer] 2019-09-03 11:30:00 2019-09-03 11:30:00 Outpatient NIECY SAAVEDRA [id number] [employer] 2019-07-24 12:45:00 2019-07-24 12:45:00 Outpatient NIECY SAAVEDRA [id number] [employer] 2019-06-23 16:30:00 2019-06-23 16:30:00 Outpatient NIECY SAAVEDRA [id number] [employer] 2019-05-09 16:00:00 2019-05-09 16:00:00 Outpatient NIECY SAAVEDRA [id number] [employer] 2019-04-28 14:00:00 2019-04-28 14:00:00 Outpatient NIECY ZAYAS [place] [id number] [facility] 2018-08-29 09:17:00 2018-08-30 15:31:00 Departed Emergency Room 1 BRAXTONSILVIANO AKIKO [facility] [id number] [facility] 2018-08-22 14:57:00 2018-08-23 18:52:00 Discharged Inpatient (obs) 1 JANIE DE LA GARZA [facility] [id number] [facility] 2018-07-13 10:04:00 2018-07-15 10:12:00 Discharged Inpatient (obs) 3 RAVINDRAMARILU [facility] [id number] [facility] 2018-02-19 19:20:00 2018-02-20 11:54:00 Discharged Inpatient (obs) 1 VANESSA AVINA [facility] [id number] [facility] 2017-12-31 09:46:00 2018-01-01 16:09:00 Discharged Inpatient 3 YOLIS BAN [facility] [id number] [facility] Results Test Description Test Time Test Comments Results Result Comments Source CHEST SINGLE (PORTABLE) 2020-04-19 18:57:00 [facility] : 1945 Sex: F [place] [address] Patient Name: GIOVNAA FINNEY MR #: [id number] : 1945 Age/Sex: 74/F Req #: [id number] [facility] Physician: VANESSA AVINA MD Ordered by: KRAIME VELASQUEZ DO Report #: [id number] Location: [facility] Room/Bed: [place] [address] Procedure: [id number] DX/CHEST SINGLE (PORTABLE) Exam Date: 04/19/20 Exam [...] VELASQUEZ DO CHEST 2 VIEWS 2019-03-13 16:51:00 [place] [address] Patient Name: GIOVANA FINNEY MR #: [id number] : 1945 Age/Sex: 73/F Req #: [id number] Adm Physician: Ordered by: MARILU WAITE MD Report #: [id number] Location: [facility] Room/Bed: Procedure: [id number] DX/CHEST 2 VIEWS Exam Date: 03/13/19 Exam [...] WAITE MD RIBS UNILAT W/CXR 2019-03-13 16:51:00 [place] [address] Patient Name: GIOVANA FINNEY MR #: [id number] : 1945 Age/Sex: 73/F Req #: [id number] Adm Physician: Ordered by: MARILU WAITE MD Report #: [id number] Location: [facility] Room/Bed: Procedure: [id number] DX/RIBS UNILAT W/CXR Exam Date: 03/13/19 Exam [...] WAITE MD CT CHEST WO 2019-01-27 15:50:00 [place] [address] Patient Name: GIOVANA FINNEY MR #: [id number] : 1945 Age/Sex: 73/F Req #: [id number] Adm Physician: Ordered by: MARILU WAITE MD Report #: [id number] Location: CT Room/Bed: Procedure: [id number] CT/CT CHEST WO Exam Date: 01/27/19 Exam Time: 1414 REPORT STATUS: Signed EXAM: CT Chest WITHOUT contrast 01/27/2019 12:23 PM INDICATION: [id number] COPD COMPARISON: Chest CT, 07/13/2018 TECHNIQUE: [...] Test Item Bedside Glucose (test code = 97116-9) 227 70-120 H Meter ID: [id number]. [facility] CenterAcetaminophen Level 2018-08-29 12:48:00* Test Item Value Reference Range Interpretation Comments Acetaminophen Level (test code = 54425-4) < 3 10-30 [facility] Axwps7729-55-01 12:48:00* Test Item Value Reference Range Interpretation Comments Salicylates Level (test code = 4024-6) < 5.0 0-30 [facility] Rhhkn7216-17-62 12:33:00* Test Item Value Reference Range Interpretation Comments Sodium Level (test code = 2951-2) 136 136-145 [facility]assium [id number] 12:33:00* Test Item Value Reference Range Interpretation Comments Potassium Level (test code = 2823-3) 4.2 3.5-5.1 [facility] CenterChloride [id number] 12:33:00* Test Item Value Reference Range Interpretation Comments Chloride Level (test code = 2075-0) 104 98-107 [facility] CenterCarbon Dioxide Dbjcv1481-87-66 12:33:00* Test Item Value Reference Range Interpretation Comments Carbon Dioxide Level (test code = 2028-9) 22 22-29 [facility] CenterAnion [id number] 12:33:00* Test Item Value Reference Range Interpretation Comments Anion Gap (test code = 86338-1) 14.2 8-16 [facility] CenterBlood Urea [id number] 12:33:00* Test Item Value Reference Range Interpretation Comments Blood Urea Nitrogen (test code = 3094-0) 21 7-26 [facility] CenterCreatinine2019-03-14 12:33:00* Test Item Value Reference Range Interpretation Comments Creatinine (test code = 2160-0) 0.84 0.57-1.11 [facility] CenterBUN/Creatinine [id number] 12:33:00* Test Item Value Reference Range Interpretation Comments BUN/Creatinine Ratio (test code = 3097-3) 25 6-25 [facility] CenterEstimat Glomerular Filtration Rate 2018-08-29 12:33:00* Test Item Value Reference Range Interpretation Comments Estimat Glomerular Filtration Rate (test code = 253616739) > 60 >60 Ranges were taken from the National Kidney Disease Education Program and the [facility] Kid[facility] Foundation literature.Reference ranges:60 or greater: Cokxgf68-45 ( for 3 consecutive months): Chronic kidney disease 15 or less: Kidney failureSt. [facility]'s [facility] CenterGlucose Ltsbq4692-76-40 12:33:00* Test Item Value Reference Range Interpretation Comments Glucose Level (test code = XAQ5167) 139 74-[address] [facility] CenterCalcium Lrgxb7024-92-73 12:33:00* Test Item Value Reference Range Interpretation Comments Calcium Level (test code = 86515-4) 9.2 8.4-10.2 [facility] CenterTotal Ttbqhpywn2900-22-87 12:33:00* Test Item Value Reference Range Interpretation Comments Total Bilirubin (test code = 1975-2) 0.4 0.2-1.2 [facility] CenterAspartate Amino Transf (AST/SGOT) 2018-08-29 12:33:00* Test Item Value Reference Range Interpretation Comments Aspartate Amino Transf (AST/SGOT) (test code = Aspartate Amino Transf (AST/SGOT)) 18 5-34 [facility] CenterAlanine Aminotransferase (ALT/SGPT) 2018-08-29 12:33:00* Test Item Value Reference Range Interpretation Comments Alanine Aminotransferase (ALT/SGPT) (test code = 1742-6) 26 0-55 [facility] CenterTotal Gngmpdm9977-11-28 12:33:00* Test Item Value Reference Range Interpretation Comments Total Protein (test code = 2885-2) 7.0 6.5-8.1 [facility] CenterAlbumin2019-03-14 12:33:00* Test Item Value Reference Range Interpretation Comments Albumin (test code = 1751-7) 4.1 3.5-5.0 [facility] CenterGlobulin2019-03-14 12:33:00* Test Item Value Reference Range Interpretation Comments Globulin (test code = 81460-4) 2.9 2.3-3.5 [facility] CenterAlbumin/Globulin [id number] 12:33:00 * Test Item Value Reference Range Interpretation Comments Albumin/Globulin Ratio (test code = 1759-0) 1.4 0.8-2.0 [facility] CenterAlkaline Wxczybjgjrx2157-30-03 12:33:00* Test Item Value Reference Range Interpretation Comments Alkaline Phosphatase (test code = 6768-6) 75 40-150 [facility] CenterWhite Blood Trjig3277-62-59 12:08:00* Test Item Value Reference Range Interpretation Comments White Blood Count (test code = 6690-2) 13.74 4.8-10.[address] [facility] CenterRed Blood Htepk7895-01-60 12:08:00* Test Item Value Reference Range Interpretation Comments Red Blood Count (test code = 789-8) 4.82 3.6-5.1 [facility] CenterHemoglobin2019-03-14 12:08:00* Test Item Value Reference Range Interpretation Comments Hemoglobin (test code = 98024-5) 12.8 12.0-16.0 [facility] CenterHematocrit2019-03-14 12:08:00* Test Item Value Reference Range Interpretation Comments Hematocrit (test code = 4544-3) 40.8 34.2-44.1 [facility] CenterMean Corpuscular Wpdury3749-46-55 12:08:00* Test Item Value Reference Range Interpretation Comments Mean Corpuscular Volume (test code = 787-2) 84.6 81-99 [facility] CenterMean Corpuscular Kgkjqjaaex3013-14-19 12:08:00* Test Item Value Reference Range Interpretation Comments Mean Corpuscular Hemoglobin (test code = 785-6) 26.6 28-[address] [facility] CenterMean Corpuscular Hemoglobin Concent 2018-08-29 12:08:00* Test Item Value Reference Range Interpretation Comments Mean Corpuscular Hemoglobin Concent (test code = 786-4) 31.4 31-35 [facility] CenterRed Cell Distribution Aikho8017-77-00 12:08:00* Test Item Value Reference Range Interpretation Comments Red Cell Distribution Width (test code = 41210-1) 15.4 11.7 -14.[address] [facility] CenterPlatelet Glmth4995-91-02 12:08:00* Test Item Value Reference Range Interpretation Comments Platelet Count (test code = 777-3) 224 140-360 [facility] CenterNeutrophils (%) (Auto)2018-08-29 12:08:00 * Test Item Value Reference Range Interpretation Comments Neutrophils (%) (Auto) (test code = 19639-3) 81.8 38.7-80.[address] [facility] CenterLymphocytes (%) (Auto)2018-08-29 12:08:00 * Test Item Value Reference Range Interpretation Comments Lymphocytes (%) (Auto) (test code = 736-9) 11.5 18.0-39.[address] [facility] CenterMonocytes (%) (Auto)2018-08-29 12:08:00* Test Item Value Reference Range Interpretation Comments Monocytes (%) (Auto) (test code = 5905-5) 5.2 4.4-11.3 [facility] CenterEosinophils (%) (Auto)2018-08-29 12:08:00 * Test Item Value Reference Range Interpretation Comments Eosinophils (%) (Auto) (test code = 713-8) 0.1 0.0-6.0 [facility] CenterBasophils (%) (Auto)2018-08-29 12:08:00* Test Item Value Reference Range Interpretation Comments Basophils (%) (Auto) (test code = 706-2) 0.3 0.0-1.0 [facility] CenterIM GRANULOCYTES %2018-08-29 12:08:00* Test Item Value Reference Range Interpretation Comments IM GRANULOCYTES % (test code = IM GRANULOCYTES %) 1.1 0.0- 1.[address] [facility] CenterNeutrophils # (Auto)2018-08-29 12:08:00* Test Item Value Reference Range Interpretation Comments Neutrophils # (Auto) (test code = 751-8) 11.2 2.1-6.[address] [facility] CenterLymphocytes # (Auto)2018-08-29 12:08:00* Test Item Value Reference Range Interpretation Comments Lymphocytes # (Auto) (test code = 69934-4) 1.6 1.0-3.2 [facility] CenterMonocytes # (Auto)2018-08-29 12:08:00* Test Item Value Reference Range Interpretation Comments Monocytes # (Auto) (test code = 742-7) 0.7 0.2-0.8 [facility] CenterEosinophils # (Auto)2018-08-29 12:08:00* Test Item Value Reference Range Interpretation Comments Eosinophils # (Auto) (test code = 711-2) 0.0 0.0-0.4 [facility] CenterBasophils # (Auto)2018-08-29 12:08:00* Test Item Value Reference Range Interpretation Comments Basophils # (Auto) (test code = 704-7) 0.0 0.0-0.1 [facility] CenterAbsolute Immature Granulocyte (auto 2018-08-29 12:08:00* Test Item Value Reference Range Interpretation Comments Absolute Immature Granulocyte (auto (mateo t code = Absolute Immature Granulocyte (auto) 0.15 0-0.[address] [facility] CenterCHEST 2 PXPXI6763-28-51 11:44:00 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 CenterUrine [id number] 11:43:00* Test Item Value Reference Range Interpretation Comments Urine RBC (test code = 98451-1) 0-5 0-5 [facility] CenterUrine Gdtsqhtk3678-46-93 11:43:00* Test Item Value Reference Range Interpretation Comments Urine Bacteria (test code = 03815-5) RARE NONE [facility] CenterUrine Epithelial Fmztz3626-96-45 11:43:00 * Test Item Value Reference Range Interpretation Comments Urine Epithelial Cells (test code = 44559-4) MANY NONE [facility] CenterUrine Hyaline Iamha6926-94-02 11:43:00* Test Item Value Reference Range Interpretation Comments Urine Hyaline Casts (test code = 80302-5) 0-1 0-1 [facility] CenterUrine Vqjye7478-79-94 11:36:00* Test Item Value Reference Range Interpretation Comments Urine Color (test code = 5778-6) YELLOW YELLOW [facility] CenterUrine Bvqbtuv5193-69-02 11:36:00* Test Item Value Reference Range Interpretation Comments Urine Clarity (test code = 23415-5) CLEAR CLEAR [facility] CenterUrine Specific Rbegnjy0927-47-67 11:36:00 * Test Item Value Reference Range Interpretation Comments Urine Specific Louisa (test code = 5811-5) 1.025 1.010-1.[address] [facility] CenterUrine [id number] 11:36:00* Test Item Value Reference Range Interpretation Comments Urine pH (test code = 30783-4) 6 5-7 [facility] CenterUrine Leukocyte Hrayfqwy7128-31-90 11:36:00* Test Item Value Reference Range Interpretation Comments Urine Leukocyte Esterase (test code = 5799-2) NEGATIVE NEGATIVE [facility] CenterUrine Txlqqsu7400-86-51 11:36:00* Test Item Value Reference Range Interpretation Comments Urine Nitrite (test code = 72763-0) NEGATIVE NEGATIVE [facility] CenterUrine Styariw1731-78-52 11:36:00* Test Item Value Reference Range Interpretation Comments Urine Protein (test code = 5804-0) TRACE NEGATIVE H [facility] CenterUrine Glucose (UA)2018-08-29 11:36:00* Test Item Value Reference Range Interpretation Comments Urine Glucose (UA) (test code = 2349-9) NEGATIVE NEGATIVE [facility] CenterUrine Ythdcyz6957-85-14 11:36:00* Test Item Value Reference Range Interpretation Comments Urine Ketones (test code = 33872-7) NEGATIVE NEGATIVE [facility] CenterUrine Opiates Cynnag6935-02-41 11:36:00* Test Item Value Reference Range Interpretation Comments Urine Opiates Screen (test code = 56563-4) POSITIVE NEGATIVE H This test provides only a screen. Positive results should be repeated by a confi rmatory test.[facility] CenterUrine Barbiturates Screen 2018-08-29 11:36:00* Test Item Value Reference Range Interpretation Comments Urine Barbiturates Screen (test code = 647251835) NEGATIVE NEGA TIVE [facility] Phencyclidine Kdfoso4250-88-14 11:36:00* Test Item Value Reference Range Interpretation Comments Urine Phencyclidine Screen (test code = 89747-8) NEGATIVE NEGAT RIN [facility] CenterUrine Amphetamines Dpifjp4303-17-90 11:36:00* Test Item Value Reference Range Interpretation Comments Urine Amphetamines Screen (test code = 25916-2) NEGATIVE NEGATI VE [facility] CenterUrine Methamphetamines Rgzizs6983-04-69 11:36:00* Test Item Value Reference Range Interpretation Comments Urine Methamphetamines Screen (test code = Urine Metha mphetamines Screen) NEGATIVE NEGATIVE [facility] CenterUrine Benzodiazepines Vpjhrd6110-71-73 11:36:00* Test Item Value Reference Range Interpretation Comments Urine Benzodiazepines Screen (test code = 81293-6) POSITIVE NEG ATIVE H This test provides only a screen. Positive results should be repeated by a confi rmatory test.[facility] CenterUrine Cocaine Screen 2018-08-29 11:36:00* Test Item Value Reference Range Interpretation Comments Urine Cocaine Screen (test code = 3398-5) NEGATIVE NEGATIVE [facility] CenterUrine Cannabinoids Gybryb2808-04-76 11:36:00* Test Item Value Reference Range Interpretation Comments Urine Cannabinoids Screen (test code = 41961-7) NEGATIVE NEGATI VE THESE RESULTS ARE FOR MEDICAL TREATMENT ONLYTHIS REPORT CONTAINS UNCONFIR MED SCREENING RESULTS*POSITIVE RESULTS WILL BE CONFIRMED BY REFERENCE LAB UPON R EQUEST CUT-OFFDRUG CLASS CONCENTRATION ng/mLAmphetamines 1000Methamphetamines 1000Cocaine 300Opiate 300Phencyc lidine 25Cannabinoid 50Barbiturates 300Benzodiazepine 300Methadone 300[facility] CenterUrine Methadone Sbqgtb2046-14-66 11:36:00* Test Item Value Reference Range Interpretation Comments Urine Methadone Screen (test code = 34851-8) NEGATIVE NEGATIVE THESE RESULTS ARE FOR MEDICAL TREATMENT ONLYTHIS REPORT CONTAINS UNCONFIR MED SCREENING RESULTS*POSITIVE RESULTS WILL BE CONFIRMED BY REFERENCE LAB UPON R EQUEST CUT-OFFDRUG CLASS CONCENTRATION ng/mLAmphetamines 1000Methamphetamines 1000Cocaine Metabolite 300Opiate 300Phencyc lidine 25Cannabinoid 50Barbiturates 300Benzodiazepine 300M[address]adone 300[facility] CenterUrine Lpwaiefovtah6368-55-14 11:36:00* Test Item Value Reference Range Interpretation Comments Urine Urobilinogen (test code = 20262-7) 0.2 0.2-1 [facility] CenterUrine Ikoijiebo7503-68-80 11:36:00* Test Item Value Reference Range Interpretation Comments Urine Bilirubin (test code = 1978-6) NEGATIVE NEGATIVE [facility] CenterUrine Xfyno5367-80-26 11:36:00* Test Item Value Reference Range Interpretation Comments Urine Blood (test code = 17495-8) 3+ NEGATIVE H [facility] CenterBlood Rgwthes3479-25-86 15:04:00* Test Item Value Reference Range Interpretation Comments Blood Culture (test code = 80414545) NO GROWTH AFTER 5 DAYS, FINAL REPORT [facility] CenterBlood Qhwnkgr7536-22-17 15:04:00* Test Item Value Reference Range Interpretation Comments Blood Culture (test code = 24071370) NO GROWTH AFTER [address] [facility] CenterBedside Eeupmcd9235-80-29 15:03:00* Test Item Value Reference Range Interpretation Comments Bedside Glucose (test code = 10638-7) 193 70-120 H Meter ID: [id number]. [facility] CenterLactic Acid Level 2018-08-22 20:45:00* Test Item Value Reference Range Interpretation Comments Lactic Acid Level (test code = Lactic Acid Level) 17.4 4.5- 19.8 [facility] CenterLactic Acid Rwrvm7055-82-48 20:45:00* Test Item Value Reference Range Interpretation Comments Lactic Acid Level (test code = Lactic Acid Level) 17.4 4.5- 19.8 [facility] CenterCreatine Kinase [id number] 17:08:00* Test Item Value Reference Range Interpretation Comments Creatine Kinase MB (test code = 54411-4) 1.60 0-5.0 [facility] G9687-24-58 17:08:00* Test Item Value Reference Range Interpretation Comments Troponin I (test code = VCU4527) 0.019 0-0.300 [facility] CenterCreatine Kinase AU3194-84-78 17:08:00* Test Item Value Reference Range Interpretation Comments Creatine Kinase MB (test code = 61526-9) 1.60 0-5.0 [place] 73487019-03-07 17:08:00* Test Item Value Reference Range Interpretation Comments Troponin I (test code = JQZ3163) 0.019 0-0.300 [facility] Csvmh3057-20-77 17:02:00* Test Item Value Reference Range Interpretation Comments Sodium Level (test code = 2951-2) 136 136-145 [facility] CenterPotassium Oendp2122-57-12 17:02:00* Test Item Value Reference Range Interpretation Comments Potassium Level (test code = 2823-3) 4.6 3.5-5.1 [facility] CenterChloride Jvvhx9741-64-95 17:02:00* Test Item Value Reference Range Interpretation Comments Chloride Level (test code = 2075-0) 104 98-107 [facility] CenterCarbon Dioxide Tgopa4777-08-61 17:02:00* Test Item Value Reference Range Interpretation Comments Carbon Dioxide Level (test code = 2028-9) 23 22-29 [facility] CenterAnion Nbk3196-24-38 17:02:00* Test Item Value Reference Range Interpretation Comments Anion Gap (test code = 98173-4) 13.6 8-16 [facility] CenterBlood Urea Ypsvefxd7174-93-02 17:02:00* Test Item Value Reference Range Interpretation Comments Blood Urea Nitrogen (test code = 3094-0) 14 7-26 [facility] CenterCreatinine2019-03-07 17:02:00* Test Item Value Reference Range Interpretation Comments Creatinine (test code = 2160-0) 0.85 0.57-1.11 [facility] CenterBUN/Creatinine Eiimy3121-65-53 17:02:00* Test Item Value Reference Range Interpretation Comments BUN/Creatinine Ratio (test code = 3097-3) 16 6-25 [facility] CenterEstimat Glomerular Filtration Rate 2018-08-22 17:02:00* Test Item Value Reference Range Interpretation Comments Estimat Glomerular Filtration Rate (test code = 085289690) > 60 >60 Ranges were taken from the National Kidney Disease Education Program and the [facility] literature.Reference ranges:60 or greater: Gxznud08-54 ( for 3 consecutive months): Chronic kidney disease 15 or less: Kidney failureSt. David's [facility] Medical CenterGlucose Svbzw4096-05-46 17:02:00* Test Item Value Reference Range Interpretation Comments Glucose Level (test code = XOR4768) 180 74-[address] [facility] CenterCalcium Sdgeu9278-08-02 17:02:00* Test Item Value Reference Range Interpretation Comments Calcium Level (test code = 05948-7) 9.4 8.4-10.2 [facility] CenterMagnesium Kbhfz4407-75-81 17:02:00* Test Item Value Reference Range Interpretation Comments Magnesium Level (test code = 30708-3) 1.9 1.3-2.1 [facility] CenterTotal Vucutrgpl2014-06-03 17:02:00* Test Item Value Reference Range Interpretation Comments Total Bilirubin (test code = 1975-2) 0.3 0.2-1.2 [facility] CenterAspartate Amino Transf (AST/SGOT) 2018-08-22 17:02:00* Test Item Value Reference Range Interpretation Comments Aspartate Amino Transf (AST/SGOT) (test code = Aspartate Amino Transf (AST/SGOT)) 18 5-34 [facility] CenterAlanine Aminotransferase (ALT/SGPT) 2018-08-22 17:02:00* Test Item Value Reference Range Interpretation Comments Alanine Aminotransferase (ALT/SGPT) (test code = 1742-6) 27 0-55 [facility] CenterTotal Fygzucp6679-70-60 17:02:00* Test Item Value Reference Range Interpretation Comments Total Protein (test code = 2885-2) 6.9 6.5-8.1 [facility] CenterAlbumin2019-03-07 17:02:00* Test Item Value Reference Range Interpretation Comments Albumin (test code = 1751-7) 3.8 3.5-5.0 [facility] CenterGlobulin2019-03-07 17:02:00* Test Item Value Reference Range Interpretation Comments Globulin (test code = 79276-7) 3.1 2.3-3.5 [facility] CenterAlbumin/Globulin Ciklr9851-67-91 17:02:00 * Test Item Value Reference Range Interpretation Comments Albumin/Globulin Ratio (test code = 1759-0) 1.2 0.8-2.0 [facility] CenterAlkaline Ihsfjqtcmky0963-24-74 17:02:00* Test Item Value Reference Range Interpretation Comments Alkaline Phosphatase (test code = 6768-6) 75 40-150 [facility] CenterCreatine Mpxull0649-49-07 17:02:00* Test Item Value Reference Range Interpretation Comments Creatine Kinase (test code = 2157-6) 42 29-168 [facility] CenterMagnesium Ztmkc9026-70-97 17:02:00* Test Item Value Reference Range Interpretation Comments Magnesium Level (test code = 36584-2) 1.9 1.3-2.1 [facility] CenterCreatine Przood5270-68-50 17:02:00* Test Item Value Reference Range Interpretation Comments Creatine Kinase (test code = 2157-6) 42 29-168 [facility] CenterUrine WMM5957-45-85 16:12:00* Test Item Value Reference Range Interpretation Comments Urine WBC (test code = 5821-4) 6-10 0-[address] [facility] CenterUrine HWN4576-56-88 16:12:00* Test Item Value Reference Range Interpretation Comments Urine RBC (test code = 96922-6) 0-5 0-5 [facility] CenterUrine Ckekyjvz6921-46-88 16:12:00* Test Item Value Reference Range Interpretation Comments Urine Bacteria (test code = 70667-7) MANY NONE H [facility] CenterUrine Epithelial Cyedb0824-47-48 16:12:00 * Test Item Value Reference Range Interpretation Comments Urine Epithelial Cells (test code = 32694-9) MANY NONE [facility] CenterUrine Zjacn8850-82-29 15:59:00* Test Item Value Reference Range Interpretation Comments Urine Color (test code = 5778-6) YELLOW YELLOW [facility] CenterUrine Yijmyvy4339-97-22 15:59:00* Test Item Value Reference Range Interpretation Comments Urine Clarity (test code = 23151-5) SL CLOUDY CLEAR [facility] CenterUrine Specific Nsuadsm5829-23-76 15:59:00 * Test Item Value Reference Range Interpretation Comments Urine Specific Louisa (test code = 5811-5) 1.020 1.010-1.[address] [facility] CenterUrine rI8803-79-42 15:59:00* Test Item Value Reference Range Interpretation Comments Urine pH (test code = 52967-6) 5 5-7 [facility] CenterUrine Leukocyte Tsykkynx5308-86-87 15:59:00* Test Item Value Reference Range Interpretation Comments Urine Leukocyte Esterase (test code = 5799-2) 1+ NEGATIVE H [facility] CenterUrine Owuxdce3226-28-16 15:59:00* Test Item Value Reference Range Interpretation Comments Urine Nitrite (test code = 01655-3) NEGATIVE NEGATIVE [facility] CenterUrine Cosoafo4039-40-67 15:59:00* Test Item Value Reference Range Interpretation Comments Urine Protein (test code = 5804-0) NEGATIVE NEGATIVE [facility] CenterUrine Glucose (UA)2018-08-22 15:59:00* Test Item Value Reference Range Interpretation Comments Urine Glucose (UA) (test code = 2349-9) NEGATIVE NEGATIVE [facility] CenterUrine Eyxtqfh0557-88-36 15:59:00* Test Item Value Reference Range Interpretation Comments Urine Ketones (test code = 51737-3) NEGATIVE NEGATIVE [facility] CenterUrine Tbfkkdjwyngc5139-75-66 15:59:00* Test Item Value Reference Range Interpretation Comments Urine Urobilinogen (test code = 08926-0) 0.2 0.2-1 [facility] CenterUrine Kuficuuxt8457-99-37 15:59:00* Test Item Value Reference Range Interpretation Comments Urine Bilirubin (test code = 1978-6) NEGATIVE NEGATIVE [facility] CenterUrine Xeirl7448-55-01 15:59:00* Test Item Value Reference Range Interpretation Comments Urine Blood (test code = 30958-0) TRACE NEGATIVE H [facility] CenterB-Type Natriuretic Mxxlwqv9017-83-61 15:39:00* Test Item Value Reference Range Interpretation Comments B-Type Natriuretic Peptide (test code = 26814-6) < 10.0 0-100 [facility] CenterB-Type Natriuretic Jdraita5130-63-86 15:39:00* Test Item Value Reference Range Interpretation Comments B-Type Natriuretic Peptide (test code = 04182-6) < 10.0 0-100 [facility] CenterWhite Blood Nhauj8598-43-77 15:20:00* Test Item Value Reference Range Interpretation Comments White Blood Count (test code = 6690-2) 12.34 4.8-10.[address] [facility] CenterRed Blood Suwkp6029-86-52 15:20:00* Test Item Value Reference Range Interpretation Comments Red Blood Count (test code = 789-8) 4.73 3.6-5.1 [facility] CenterHemoglobin2019-03-07 15:20:00* Test Item Value Reference Range Interpretation Comments Hemoglobin (test code = 34524-4) 12.5 12.0-16.0 [facility] CenterHematocrit2019-03-07 15:20:00* Test Item Value Reference Range Interpretation Comments Hematocrit (test code = 4544-3) 39.7 34.2-44.1 [facility] CenterMean Corpuscular Opjmbz1422-40-66 15:20:00* Test Item Value Reference Range Interpretation Comments Mean Corpuscular Volume (test code = 787-2) 83.9 81-99 [facility] CenterMean Corpuscular Wsmmusidux7040-00-04 15:20:00* Test Item Value Reference Range Interpretation Comments Mean Corpuscular Hemoglobin (test code = 785-6) 26.4 28-[address] [facility] CenterMean Corpuscular Hemoglobin Concent 2018-08-22 15:20:00* Test Item Value Reference Range Interpretation Comments Mean Corpuscular Hemoglobin Concent (test code = 786-4) 31.5 31-35 [facility] CenterRed Cell Distribution Knocj2909-66-02 15:20:00* Test Item Value Reference Range Interpretation Comments Red Cell Distribution Width (test code = 19890-1) 15.5 11.7 -14.[address] [facility] CenterPlatelet Dznev9284-98-06 15:20:00* Test Item Value Reference Range Interpretation Comments Platelet Count (test code = 777-3) 223 140-360 [facility] CenterNeutrophils (%) (Auto)2018-08-22 15:20:00 * Test Item Value Reference Range Interpretation Comments Neutrophils (%) (Auto) (test code = 74833-9) 90.7 38.7-80.[address] [facility] CenterLymphocytes (%) (Auto)2018-08-22 15:20:00 * Test Item Value Reference Range Interpretation Comments Lymphocytes (%) (Auto) (test code = 736-9) 5.9 18.0-39.[address] [facility] CenterMonocytes (%) (Auto)2018-08-22 15:20:00* Test Item Value Reference Range Interpretation Comments Monocytes (%) (Auto) (test code = 5905-5) 1.9 4.4-11.[address] [facility] CenterEosinophils (%) (Auto)2018-08-22 15:20:00 * Test Item Value Reference Range Interpretation Comments Eosinophils (%) (Auto) (test code = 713-8) 0.2 0.0-6.0 [facility] CenterBasophils (%) (Auto)2018-08-22 15:20:00* Test Item Value Reference Range Interpretation Comments Basophils (%) (Auto) (test code = 706-2) 0.2 0.0-1.0 [facility] CenterIM GRANULOCYTES %2018-08-22 15:20:00* Test Item Value Reference Range Interpretation Comments IM GRANULOCYTES % (test code = IM GRANULOCYTES %) 1.1 0.0- 1.[address] [facility] CenterNeutrophils # (Auto)2018-08-22 15:20:00* Test Item Value Reference Range Interpretation Comments Neutrophils # (Auto) (test code = 751-8) 11.2 2.1-6.[address] [facility] CenterLymphocytes # (Auto)2018-08-22 15:20:00* Test Item Value Reference Range Interpretation Comments Lymphocytes # (Auto) (test code = 38282-7) 0.7 1.0-3.[address] [facility] CenterMonocytes # (Auto)2018-08-22 15:20:00* Test Item Value Reference Range Interpretation Comments Monocytes # (Auto) (test code = 742-7) 0.2 0.2-0.8 [facility] CenterEosinophils # (Auto)2018-08-22 15:20:00* Test Item Value Reference Range Interpretation Comments Eosinophils # (Auto) (test code = 711-2) 0.0 0.0-0.4 [facility] CenterBasophils # (Auto)2018-08-22 15:20:00* Test Item Value Reference Range Interpretation Comments Basophils # (Auto) (test code = 704-7) 0.0 0.0-0.1 [facility] CenterAbsolute Immature Granulocyte (auto 2018-08-22 15:20:00* Test Item Value Reference Range Interpretation Comments Absolute Immature Granulocyte (auto (mateo t code = Absolute Immature Granulocyte (auto) 0.13 0-0.[address] [facility] CenterCHEST 2 SKIDV2922-06-20 15:07:00 [facility] [address] [place] [address] Patient Name: GIOVANA FINNEY MR #: [id number] : 1945 Age/Sex: 72/F Req #: [id number] Adm Physician: Ordered by: SMILEY SOLER [employer]S [employer]IVER Report #: [id number] Location: ER Room/Bed: Procedure: [id number] DX/CHEST 2 VIEWS Exam Date: 08/22/18 Exam Time: 1450 REPORT STATUS: Signed EXAM: [facility] ST 2 VIEWS, PA and lateral DATE: [...] acute findings. Clips in the right upper funmialyo drant of the abdomen. IMPRESSION: No acute thoracic abnormality. Signed by: Dr. Queenie Marvin DO on 08/22/2018 3:17 PM Dictated By: QUEENIE MARVIN DO 151 7 Transcribed By: RUSS on 08/22/18 1517 COPY TO: SMILEY SOLER NP Ushsmkue5915-25-14 06:09:00* Test Item Value Reference Range Interpretation Comments Ferritin (test code = 2276-4) 19.39 4.63-204.00 [facility] CenterFerritin2019-01-28 06:09:00* Test Item Value Reference Range Interpretation Comments Ferritin (test code = 2276-4) 19.39 4.63-204.00 [facility] CenterFerritin2019-01-28 06:09:00* Test Item Value Reference Range Interpretation Comments Ferritin (test code = 2276-4) 19.39 4.63-204.00 [facility] CenterBedside Ikymdrc1225-37-62 20:41:00* Test Item Value Reference Range Interpretation Comments Bedside Glucose (test code = 64435-1) 170 70-120 H Meter ID: [id number]. [facility] CenterInfluenza Virus Types A,B Rfwtazy4729-05-11 12:38:00* Test Item Value Reference Range Interpretation Comments Influenza Virus Types A,B Antigen (test code = 04005-5) NEGATIVE NEGATIVE [facility] CenterInfluenza Virus Types A,B Antigen 2018-07-14 12:38:00* Test Item Value Reference Range Interpretation Comments Influenza Virus Types A,B Antigen (test code = 85295-4) NEGATIVE NEGATIVE [facility] CenterInfluenza Virus Types A,B Antigen 2018-07-14 12:38:00* Test Item Value Reference Range Interpretation Comments Influenza Virus Types A,B Antigen (test code = 89083-3) NEGATIVE NEGATIVE [facility] CenterCT CHEST P3332-47-18 14:25:00 [place] [address] Patient Name: GIOVANA FINNEY MR #: [id number] : 1945 Age/Sex: 72/F Req #: [id number] [facility] Physician: MARILU WAITE MD Ordered by: MARILU WAITE MD Report #: [id number] Location: [facility] Room/Bed: [address] Procedure: [id number] CT/CT CHEST W Exam Date: Exam Time: [...] is below the limits set by the [facility] Protocol Committee (RPC). Appropriate CT dose reduction [...] COPY TO: MARILU WAITE MD CHEST 2 WEVGE3799-42-14 11:27:00 [place] [address] Patient Name: GIOVANA FINNEY MR #: [id number] : 1945 Age/Sex: 72/F Req #: [id number] Adm Physician: MARILU WAITE MD Ordered by: MARILU WAITE MD Report #: [id number] Location: [facility] Room/Bed: [place] [address] Procedure: [id number] DX/CH EST 2 VIEWS Exam Date: 07/13/18 [...] 07/13/181127 COPY TO: MARILU WAITE MD Sodium Dactj3244-89-62 11:13:00* Test Item Value Reference Range Interpretation Comments Sodium Level (test code = 2951-2) 142 136-145 [facility] CenterPotassium Kdmrx5362-53-12 11:13:00* Test Item Value Reference Range Interpretation Comments Potassium Level (test code = 2823-3) 4.5 3.5-5.1 [facility] CenterChloride Wptux7987-01-75 11:13:00* Test Item Value Reference Range Interpretation Comments Chloride Level (test code = 2075-0) 108 98-[address] [facility] CenterCarbon Dioxide Henmh7959-35-81 11:13:00* Test Item Value Reference Range Interpretation Comments Carbon Dioxide Level (test code = 2028-9) 24 22-29 [facility] CenterAnion Xcj3045-42-37 11:13:00* Test Item Value Reference Range Interpretation Comments Anion Gap (test code = 64427-4) 14.5 8-16 [facility] CenterBlood Urea Lvdiebmu7041-19-44 11:13:00* Test Item Value Reference Range Interpretation Comments Blood Urea Nitrogen (test code = 3094-0) 12 7-26 [facility] CenterCreatinine2019-01-26 11:13:00* Test Item Value Reference Range Interpretation Comments Creatinine (test code = 2160-0) 0.82 0.57-1.11 [facility] CenterBUN/Creatinine Oieir6475-20-36 11:13:00* Test Item Value Reference Range Interpretation Comments BUN/Creatinine Ratio (test code = 3097-3) 15 6-25 [facility] CenterEstimat Glomerular Filtration Rate 2018-07-13 11:13:00* Test Item Value Reference Range Interpretation Comments Estimat Glomerular Filtration Rate (test code = 919435205) > 60 >60 Ranges were taken from the National Kidney Disease Education Program and the [facility] Kidney Foundation literature.Reference ranges:60 or greater: Zjzsuw89-25 ( for 3 consecutive months): Chronic kidney disease 15 or less: Kidney failureSt. [facility]'s [facility] Medical CenterGlucose Iieul7533-39-24 11:13:00* Test Item Value Reference Range Interpretation Comments Glucose Level (test code = NKI4093) 103 74-118 [facility] CenterCalcium Kuups0051-02-65 11:13:00* Test Item Value Reference Range Interpretation Comments Calcium Level (test code = 19176-7) 8.9 8.4-10.2 [facility] CenterTotal Xwaricqcg7219-54-25 11:13:00* Test Item Value Reference Range Interpretation Comments Total Bilirubin (test code = 1975-2) 0.3 0.2-1.2 [facility] CenterAspartate Amino Transf (AST/SGOT) 2018-07-13 11:13:00* Test Item Value Reference Range Interpretation Comments Aspartate Amino Transf (AST/SGOT) (test code = Aspartate Amino Transf (AST/SGOT)) 23 5-34 [facility] CenterAlanine Aminotransferase (ALT/SGPT) 2018-07-13 11:13:00* Test Item Value Reference Range Interpretation Comments Alanine Aminotransferase (ALT/SGPT) (test code = 1742-6) 33 0-55 [facility] CenterTotal Zvgnhts7097-89-14 11:13:00* Test Item Value Reference Range Interpretation Comments Total Protein (test code = 2885-2) 6.5 6.5-8.1 [facility] CenterAlbumin2019-01-26 11:13:00* Test Item Value Reference Range Interpretation Comments Albumin (test code = 1751-7) 3.8 3.5-5.0 [facility] CenterGlobulin2019-01-26 11:13:00* Test Item Value Reference Range Interpretation Comments Globulin (test code = 67989-1) 2.7 2.3-3.5 [facility] CenterAlbumin/Globulin Jcbsj3688-78-53 11:13:00 * Test Item Value Reference Range Interpretation Comments Albumin/Globulin Ratio (test code = 1759-0) 1.4 0.8-2.0 [facility] CenterAlkaline Umjewwnzskm3391-90-89 11:13:00* Test Item Value Reference Range Interpretation Comments Alkaline Phosphatase (test code = 6768-6) 69 40-150 [facility] CenterWhite Blood Qcacs2011-85-83 10:56:00* Test Item Value Reference Range Interpretation Comments White Blood Count (test code = 6690-2) 7.15 4.8-10.8 [facility] CenterRed Blood Pxfos0655-65-79 10:56:00* Test Item Value Reference Range Interpretation Comments Red Blood Count (test code = 789-8) 4.43 3.6-5.1 [facility] CenterHemoglobin2019-01-26 10:56:00* Test Item Value Reference Range Interpretation Comments Hemoglobin (test code = 81029-0) 11.6 12.0-16.[address] [facility] CenterHematocrit2019-01-26 10:56:00* Test Item Value Reference Range Interpretation Comments Hematocrit (test code = 4544-3) 36.9 34.2-44.1 [facility] CenterMean Corpuscular Swznbw3729-54-81 10:56:00* Test Item Value Reference Range Interpretation Comments Mean Corpuscular Volume (test code = 787-2) 83.3 81-99 [facility] CenterMean Corpuscular Mblyrnrbwl9966-37-73 10:56:00* Test Item Value Reference Range Interpretation Comments Mean Corpuscular Hemoglobin (test code = 785-6) 26.2 28-[address] [facility] CenterMean Corpuscular Hemoglobin Concent 2018-07-13 10:56:00* Test Item Value Reference Range Interpretation Comments Mean Corpuscular Hemoglobin Concent (test code = 786-4) 31.4 31-35 [facility] CenterRed Cell Distribution Awgzv9878-25-20 10:56:00* Test Item Value Reference Range Interpretation Comments Red Cell Distribution Width (test code = 58230-9) 15.1 11.7 -14.[address] [facility] CenterPlatelet Qtmjz3408-25-04 10:56:00* Test Item Value Reference Range Interpretation Comments Platelet Count (test code = 777-3) 197 140-360 [facility] CenterNeutrophils (%) (Auto)2018-07-13 10:56:00 * Test Item Value Reference Range Interpretation Comments Neutrophils (%) (Auto) (test code = 58830-7) 73.2 38.7-80.0 [facility] CenterLymphocytes (%) (Auto)2018-07-13 10:56:00 * Test Item Value Reference Range Interpretation Comments Lymphocytes (%) (Auto) (test code = 736-9) 13.0 18.0-39.[address] [facility] CenterMonocytes (%) (Auto)2018-07-13 10:56:00* Test Item Value Reference Range Interpretation Comments Monocytes (%) (Auto) (test code = 5905-5) 7.6 4.4-11.3 [facility] CenterEosinophils (%) (Auto)2018-07-13 10:56:00 * Test Item Value Reference Range Interpretation Comments Eosinophils (%) (Auto) (test code = 713-8) 4.9 0.0-6.0 [facility] CenterBasophils (%) (Auto)2018-07-13 10:56:00* Test Item Value Reference Range Interpretation Comments Basophils (%) (Auto) (test code = 706-2) 0.7 0.0-1.0 [facility] CenterIM GRANULOCYTES %2018-07-13 10:56:00* Test Item Value Reference Range Interpretation Comments IM GRANULOCYTES % (test code = IM GRANULOCYTES %) 0.6 0.0- 1.0 [facility] CenterNeutrophils # (Auto)2018-07-13 10:56:00* Test Item Value Reference Range Interpretation Comments Neutrophils # (Auto) (test code = 751-8) 5.2 2.1-6.9 [facility] CenterLymphocytes # (Auto)2018-07-13 10:56:00* Test Item Value Reference Range Interpretation Comments Lymphocytes # (Auto) (test code = 87577-8) 0.9 1.0-3.[address] [facility] CenterMonocytes # (Auto)2018-07-13 10:56:00* Test Item Value Reference Range Interpretation Comments Monocytes # (Auto) (test code = 742-7) 0.5 0.2-0.8 [facility] CenterEosinophils # (Auto)2018-07-13 10:56:00* Test Item Value Reference Range Interpretation Comments Eosinophils # (Auto) (test code = 711-2) 0.4 0.0-0.4 [facility] CenterBasophils # (Auto)2018-07-13 10:56:00* Test Item Value Reference Range Interpretation Comments Basophils # (Auto) (test code = 704-7) 0.1 0.0-0.1 [facility] CenterAbsolute Immature Granulocyte (auto 2018-07-13 10:56:00* Test Item Value Reference Range Interpretation Comments Absolute Immature Granulocyte (auto (mateo t code = Absolute Immature Granulocyte (auto) 0.04 0-0.1 [facility] CenterBedside Nztfzma0275-40-56 09:38:00* Test Item Value Reference Range Interpretation Comments Bedside Glucose (test code = 45363-3) 174 70-120 H Meter ID: [id number] Memorial Hospitalodium Level 2018-02-20 06:03:00* Test Item Value Reference Range Interpretation Comments Sodium Level (test code = 2951-2) 135 136-[address] [facility] CenterPotassium Zopch9376-58-86 06:03:00* Test Item Value Reference Range Interpretation Comments Potassium Level (test code = 2823-3) 3.3 3.5-5.[address] [facility] CenterChloride Efszl5465-01-83 06:03:00* Test Item Value Reference Range Interpretation Comments Chloride Level (test code = 2075-0) 102 98-107 [facility] CenterCarbon Dioxide Dkzkx1043-84-84 06:03:00* Test Item Value Reference Range Interpretation Comments Carbon Dioxide Level (test code = 2028-9) 23 22-29 [facility] CenterAnion Ufn9576-20-61 06:03:00* Test Item Value Reference Range Interpretation Comments Anion Gap (test code = 54963-4) 13.3 8-16 [facility] CenterBlood Urea Odvjdkeh3106-15-87 06:03:00* Test Item Value Reference Range Interpretation Comments Blood Urea Nitrogen (test code = 3094-0) 17 7-26 [facility] CenterCreatinine2018-09-05 06:03:00* Test Item Value Reference Range Interpretation Comments Creatinine (test code = 2160-0) 0.79 0.57-1.11 [facility] CenterBUN/Creatinine Oekrg7421-35-29 06:03:00* Test Item Value Reference Range Interpretation Comments BUN/Creatinine Ratio (test code = 3097-3) 22 6-25 [facility] CenterEstimat Glomerular Filtration Rate 2018-02-20 06:03:00* Test Item Value Reference Range Interpretation Comments Estimat Glomerular Filtration Rate (test code = 68459-9) 60- >60 Ranges were taken from the National Kidney Disease Education Program and the [facility] Kid[facility] Foundation literature.Reference ranges:60 or greater: Sfrgwo08-04 ( for 3 consecutive months): Chronic kidney disease 15 or less: Kidney failureSt. [facility]'s [facility] Medical CenterGlucose Gbwum6469-75-10 06:03:00* Test Item Value Reference Range Interpretation Comments Glucose Level (test code = FNU5931) 155 74-[address] [facility] CenterCalcium Rzulx7885-99-78 06:03:00* Test Item Value Reference Range Interpretation Comments Calcium Level (test code = 82681-3) 9.3 8.4-10.2 [facility] CenterTotal Iomenhadi6919-65-05 06:03:00* Test Item Value Reference Range Interpretation Comments Total Bilirubin (test code = 1975-2) 0.4 0.2-1.2 [facility] CenterAspartate Amino Transf (AST/SGOT) 2018-02-20 06:03:00* Test Item Value Reference Range Interpretation Comments Aspartate Amino Transf (AST/SGOT) (test code = Aspartate Amino Transf (AST/SGOT)) 22 5-34 [facility] CenterAlanine Aminotransferase (ALT/SGPT) 2018-02-20 06:03:00* Test Item Value Reference Range Interpretation Comments Alanine Aminotransferase (ALT/SGPT) (test code = 1742-6) 25 0-55 [facility] CenterTotal Tpafuvh2044-42-18 06:03:00* Test Item Value Reference Range Interpretation Comments Total Protein (test code = 2885-2) 6.8 6.5-8.1 [facility] CenterAlbumin2018-09-05 06:03:00* Test Item Value Reference Range Interpretation Comments Albumin (test code = 1751-7) 3.7 3.5-5.0 [facility] CenterGlobulin2018-09-05 06:03:00* Test Item Value Reference Range Interpretation Comments Globulin (test code = 15729-7) 3.1 2.3-3.5 [facility] CenterAlbumin/Globulin Iqrrv1413-48-45 06:03:00 * Test Item Value Reference Range Interpretation Comments Albumin/Globulin Ratio (test code = 1759-0) 1.2 0.8-2.0 [facility] CenterAlkaline Pcrxutfhhzy7711-88-92 06:03:00* Test Item Value Reference Range Interpretation Comments Alkaline Phosphatase (test code = 6768-6) 81 40-150 [facility] CenterTriglycerides Jsjfx3650-82-92 06:03:00* Test Item Value Reference Range Interpretation Comments Triglycerides Level (test code = 2571-8) 165 0-[address] [facility] CenterCholesterol Zaedx6353-10-86 06:03:00* Test Item Value Reference Range Interpretation Comments Cholesterol Level (test code = 2093-3) 203 0-199 H Less than 200 mg/dL Low Sjhp597 - 239 mg/dL Borderline Pexy813 m g/dl and greater High Risk [facility] CenterLDL Nmzoevnjvni4707-68-07 06:03:00* Test Item Value Reference Range Interpretation Comments LDL Cholesterol (test code = 2089-1) 134 60-130 [facility] Jkickejaixb7705-25-34 06:03:00* Test Item Value Reference Range Interpretation Comments HDL Cholesterol (test code = 2085-9) 36 40-[address] [facility] CenterCholesterol/HDL Ycaaa4591-30-37 06:03:00 * Test Item Value Reference Range Interpretation Comments Cholesterol/HDL Ratio (test code = 9830-1) 5.6 3.0-3.[address] [facility] CenterTriglycerides Kihxr1010-12-66 06:03:00* Test Item Value Reference Range Interpretation Comments Triglycerides Level (test code = 2571-8) 165 0-[address] [facility] CenterCholesterol Jbzxu3150-15-05 06:03:00* Test Item Value Reference Range Interpretation Comments Cholesterol Level (test code = 2093-3) 203 0-199 H Less than 200 mg/dL Low Bxpz617 - 239 mg/dL Borderline Gfjy376 m g/dl and greater High Risk [facility] CenterLDL Nfcybqneeev4277-66-07 06:03:00* Test Item Value Reference Range Interpretation Comments LDL Cholesterol (test code = 2089-1) 134 60-130 [facility]L Crnsbevylhg0676-08-04 06:03:00* Test Item Value Reference Range Interpretation Comments HDL Cholesterol (test code = 2085-9) 36 40-[address] [facility] CenterCholesterol/HDL Xsqli8795-90-10 06:03:00 * Test Item Value Reference Range Interpretation Comments Cholesterol/HDL Ratio (test code = 9830-1) 5.6 3.0-3.[address] [facility] CenterTriglycerides Ykgah1401-10-58 06:03:00* Test Item Value Reference Range Interpretation Comments Triglycerides Level (test code = 2571-8) 165 0-[address] [facility] CenterCholesterol Rxdhs5393-77-29 06:03:00* Test Item Value Reference Range Interpretation Comments Cholesterol Level (test code = 2093-3) 203 0-199 H Less than 200 mg/dL Low Ubrv751 - 239 mg/dL Borderline Ixpp623 m g/dl and greater High Risk [facility] CenterLDL Pflrwtdckfg5825-37-99 06:03:00* Test Item Value Reference Range Interpretation Comments LDL Cholesterol (test code = 2089-1) 134 60-130 H [facility] Obtndwjvkks4908-58-87 06:03:00* Test Item Value Reference Range Interpretation Comments HDL Cholesterol (test code = 2085-9) 36 40-[address] [facility] CenterCholesterol/HDL Hrtrg1897-15-16 06:03:00 * Test Item Value Reference Range Interpretation Comments Cholesterol/HDL Ratio (test code = 9830-1) 5.6 3.0-3.[address] [facility] CenterTriglycerides Tchba1067-99-97 06:03:00* Test Item Value Reference Range Interpretation Comments Triglycerides Level (test code = 2571-8) 165 0-[address] [facility] CenterCholesterol Fuyen1864-27-14 06:03:00* Test Item Value Reference Range Interpretation Comments Cholesterol Level (test code = 2093-3) 203 0-199 H Less than 200 mg/dL Low Vkac799 - 239 mg/dL Borderline Hkvj269 m g/dl and greater High Risk [facility] CenterLDL Nrctkhxqpds0812-99-60 06:03:00* Test Item Value Reference Range Interpretation Comments LDL Cholesterol (test code = 2089-1) 134 60-130 H [facility] Qydoomcdcdo8913-08-92 06:03:00* Test Item Value Reference Range Interpretation Comments HDL Cholesterol (test code = 2085-9) 36 40-[address] [facility] CenterCholesterol/HDL Wtrzr5069-45-17 06:03:00 * Test Item Value Reference Range Interpretation Comments Cholesterol/HDL Ratio (test code = 9830-1) 5.6 3.0-3.[address] [facility] CenterCreatine Kinase WU7214-35-61 05:45:00* Test Item Value Reference Range Interpretation Comments Creatine Kinase MB (test code = 67167-7) 3.50 0-5.0 [facility] CenterTroponin I8646-16-79 05:45:00* Test Item Value Reference Range Interpretation Comments Troponin I (test code = CSZ9540) 0.011 0-0.300 [facility] CenterCreatine Kinase HM5477-07-30 05:45:00* Test Item Value Reference Range Interpretation Comments Creatine Kinase MB (test code = 98937-6) 3.50 0-5.0 [facility] CenterTrJoseph [place]ille [address]O9243-03-40 05:45:00* Test Item Value Reference Range Interpretation Comments Troponin I (test code = UGZ2311) 0.011 0-0.300 [facility] CenterCreatine Bkuuoj8242-15-56 05:42:00* Test Item Value Reference Range Interpretation Comments Creatine Kinase (test code = 2157-6) 310 29-[address] [facility] CenterCreatine Rvdxvw1283-96-37 05:42:00* Test Item Value Reference Range Interpretation Comments Creatine Kinase (test code = 2157-6) 310 29-[address] [facility] CenterWhite Blood Xjcox9266-07-81 05:23:00* Test Item Value Reference Range Interpretation Comments White Blood Count (test code = 6690-2) 11.71 4.8-10.[address] [facility] CenterRed Blood Gduhr5534-79-42 05:23:00* Test Item Value Reference Range Interpretation Comments Red Blood Count (test code = 789-8) 4.41 3.6-5.1 [facility] CenterHemoglobin2018-09-05 05:23:00* Test Item Value Reference Range Interpretation Comments Hemoglobin (test code = 12068-5) 11.3 12.0-16.[address] [facility] CenterHematocrit2018-09-05 05:23:00* Test Item Value Reference Range Interpretation Comments Hematocrit (test code = 4544-3) 36.1 34.2-44.1 [facility] CenterMean Corpuscular Zetjlo4586-80-65 05:23:00* Test Item Value Reference Range Interpretation Comments Mean Corpuscular Volume (test code = 787-2) 81.9 81-99 [facility] CenterMean Corpuscular Drrohyibyz0561-63-25 05:23:00* Test Item Value Reference Range Interpretation Comments Mean Corpuscular Hemoglobin (test code = 785-6) 25.6 28-[address] [facility] CenterMean Corpuscular Hemoglobin Concent 2018-02-20 05:23:00* Test Item Value Reference Range Interpretation Comments Mean Corpuscular Hemoglobin Concent (test code = 786-4) 31.3 31-35 [facility] CenterRed Cell Distribution Eqhmg7106-72-17 05:23:00* Test Item Value Reference Range Interpretation Comments Red Cell Distribution Width (test code = 84261-4) 15.5 11.7 -14.[address] [facility] CenterPlatelet Njrnj0955-33-46 05:23:00* Test Item Value Reference Range Interpretation Comments Platelet Count (test code = 777-3) 289 140-360 [facility] CenterNeutrophils (%) (Auto)2018-02-20 05:23:00 * Test Item Value Reference Range Interpretation Comments Neutrophils (%) (Auto) (test code = 06569-6) 77.1 38.7-80.0 [facility] CenterLymphocytes (%) (Auto)2018-02-20 05:23:00 * Test Item Value Reference Range Interpretation Comments Lymphocytes (%) (Auto) (test code = 736-9) 13.8 18.0-39.[address] [facility] CenterMonocytes (%) (Auto)2018-02-20 05:23:00* Test Item Value Reference Range Interpretation Comments Monocytes (%) (Auto) (test code = 5905-5) 7.6 4.4-11.3 [facility] CenterEosinophils (%) (Auto)2018-02-20 05:23:00 * Test Item Value Reference Range Interpretation Comments Eosinophils (%) (Auto) (test code = 713-8) 0.5 0.0-6.0 [facility] CenterBasophils (%) (Auto)2018-02-20 05:23:00* Test Item Value Reference Range Interpretation Comments Basophils (%) (Auto) (test code = 706-2) 0.5 0.0-1.0 [facility] CenterIM GRANULOCYTES %2018-02-20 05:23:00* Test Item Value Reference Range Interpretation Comments IM GRANULOCYTES % (test code = IM GRANULOCYTES %) 0.5 0.0- 1.0 [facility] CenterNeutrophils # (Auto)2018-02-20 05:23:00* Test Item Value Reference Range Interpretation Comments Neutrophils # (Auto) (test code = 751-8) 9.0 2.1-6.[address] [facility] CenterLymphocytes # (Auto)2018-02-20 05:23:00* Test Item Value Reference Range Interpretation Comments Lymphocytes # (Auto) (test code = 79648-9) 1.6 1.0-3.2 [facility] CenterMonocytes # (Auto)2018-02-20 05:23:00* Test Item Value Reference Range Interpretation Comments Monocytes # (Auto) (test code = 742-7) 0.9 0.2-0.[address] [facility] CenterEosinophils # (Auto)2018-02-20 05:23:00* Test Item Value Reference Range Interpretation Comments Eosinophils # (Auto) (test code = 711-2) 0.1 0.0-0.4 [facility] CenterBasophils # (Auto)2018-02-20 05:23:00* Test Item Value Reference Range Interpretation Comments Basophils # (Auto) (test code = 704-7) 0.1 0.0-0.1 [facility] CenterAbsolute Immature Granulocyte (auto 2018-02-20 05:23:00* Test Item Value Reference Range Interpretation Comments Absolute Immature Granulocyte (auto (mateo t code = Absolute Immature Granulocyte (auto) 0.06 0-0.1 [facility] CenterCT CHEST V2057-14-77 19:56:00 [facility] [address] [place] [address] Patient Name: GIOVANA FINNEY MR #: [id number] : 1945 Age/Sex: 72/F Req #: [id number] Adm Physician: VANESSA AVINA MD Ordered by: JANIE DE LA GARZA MD Report #: [id number] Locat ion: [facility] Room/Bed: [place] [address] Procedure: [id number] C T/CT CHEST W Exam Date: 02/19/18 [...] TO: JANIE DE LA GARZA MD Urine JMO7011-74-41 16:05:00* Test Item Value Reference Range Interpretation Comments Urine WBC (test code = 5821-4) 6-10 0-[address] [facility] CenterUrine NBG9429-49-93 16:05:00* Test Item Value Reference Range Interpretation Comments Urine RBC (test code = 86449-3) 0-5 0-5 [facility] CenterUrine Gsrbfsob4713-16-30 16:05:00* Test Item Value Reference Range Interpretation Comments Urine Bacteria (test code = 77899-0) MANY NONE H [facility] CenterUrine Epithelial Nxror8107-68-55 16:05:00 * Test Item Value Reference Range Interpretation Comments Urine Epithelial Cells (test code = 54417-5) MANY NONE [facility] KFL8474-80-51 16:05:00* Test Item Value Reference Range Interpretation Comments Urine WBC (test code = 5821-4) 6-10 0-[address] [facility] GSV5545-25-27 16:05:00* Test Item Value Reference Range Interpretation Comments Urine RBC (test code = 28149-6) 0-5 0-5 [facility] Pbqcjgpy8382-67-39 16:05:00* Test Item Value Reference Range Interpretation Comments Urine Bacteria (test code = 81685-5) MANY NONE H [facility] Epithelial Ydtkt4534-47-91 16:05:00 * Test Item Value Reference Range Interpretation Comments Urine Epithelial Cells (test code = 38683-4) [facility] Hvlnm5511-04-17 15:49:00* Test Item Value Reference Range Interpretation Comments Urine Color (test code = 5778-6) YELLOW YELLOW [facility] Owlkizu5723-30-71 15:49:00* Test Item Value Reference Range Interpretation Comments Urine Clarity (test code = 51529-7) HAZY CLEAR [facility] Specific Pezfbub1607-51-31 15:49:00 * Test Item Value Reference Range Interpretation Comments Urine Specific Louisa (test code = 5811-5) 1.030 1.010-1.[address] [facility] fS8818-26-26 15:49:00* Test Item Value Reference Range Interpretation Comments Urine pH (test code = 81254-2) 5 5-7 [facility] Leukocyte Enewzeme7001-32-92 15:49:00* Test Item Value Reference Range Interpretation Comments Urine Leukocyte Esterase (test code = 5799-2) NEGATIVE NEGATIVE [facility] Csgvwiu6876-49-56 15:49:00* Test Item Value Reference Range Interpretation Comments Urine Nitrite (test code = 99855-6) NEGATIVE NEGATIVE [facility] Uzhtqpx3109-31-80 15:49:00* Test Item Value Reference Range Interpretation Comments Urine Protein (test code = 5804-0) 2+ NEGATIVE H [facility] Glucose (UA)2018-02-19 15:49:00* Test Item Value Reference Range Interpretation Comments Urine Glucose (UA) (test code = 2349-9) NEGATIVE NEGATIVE [facility] Prwgdzj7013-37-54 15:49:00* Test Item Value Reference Range Interpretation Comments Urine Ketones (test code = 85003-5) 1+ NEGATIVE H [facility] Qmglatwdakvi6208-38-05 15:49:00* Test Item Value Reference Range Interpretation Comments Urine Urobilinogen (test code = 71316-5) 0.2 0.2-1 [facility] Kvddrlgvc7709-07-56 15:49:00* Test Item Value Reference Range Interpretation Comments Urine Bilirubin (test code = 1978-6) NEGATIVE NEGATIVE [facility] Yiyyb9158-37-23 15:49:00* Test Item Value Reference Range Interpretation Comments Urine Blood (test code = 97817-0) TRACE NEGATIVE H [facility] Cfbvs2606-04-12 15:49:00* Test Item Value Reference Range Interpretation Comments Urine Color (test code = 5778-6) YELLOW YELLOW [facility] Kvexrsx3508-67-43 15:49:00* Test Item Value Reference Range Interpretation Comments Urine Clarity (test code = 69282-8) HAZY CLEAR [facility] Specific Pkqocwi4457-23-82 15:49:00 * Test Item Value Reference Range Interpretation Comments Urine Specific Louisa (test code = 5811-5) 1.030 1.010-1.[address] [facility] bD4205-07-50 15:49:00* Test Item Value Reference Range Interpretation Comments Urine pH (test code = 93724-0) 5 5-7 [facility] Leukocyte Cgjffoxi3056-96-73 15:49:00* Test Item Value Reference Range Interpretation Comments Urine Leukocyte Esterase (test code = 5799-2) NEGATIVE NEGATIVE [facility] Rlpetca9476-27-55 15:49:00* Test Item Value Reference Range Interpretation Comments Urine Nitrite (test code = 45030-1) NEGATIVE NEGATIVE [facility] Nctmalq1370-03-38 15:49:00* Test Item Value Reference Range Interpretation Comments Urine Protein (test code = 5804-0) 2+ NEGATIVE H [facility] Glucose (UA)2018-02-19 15:49:00* Test Item Value Reference Range Interpretation Comments Urine Glucose (UA) (test code = 2349-9) NEGATIVE NEGATIVE [facility] Dcaghfv3017-55-41 15:49:00* Test Item Value Reference Range Interpretation Comments Urine Ketones (test code = 91076-5) 1+ NEGATIVE H [facility] Gdrvpaguyced2596-35-28 15:49:00* Test Item Value Reference Range Interpretation Comments Urine Urobilinogen (test code = 89396-4) 0.2 0.2-1 [facility] Fzpomilwc9155-42-17 15:49:00* Test Item Value Reference Range Interpretation Comments Urine Bilirubin (test code = 1978-6) NEGATIVE NEGATIVE [facility] Xjawy0470-41-45 15:49:00* Test Item Value Reference Range Interpretation Comments Urine Blood (test code = 34854-0) TRACE NEGATIVE H [facility] CenterCHEST SINGLE (PORTABLE)2018-02-19 14:36:00 [facility] [address] [address] Patient Name: GIOVANA FINNEY MR #: [id number] : 1945 Age/Sex: 72/F Req #: [id number] Adm Physician: Ordered by: JANIE DE LA GARZA MD Report #: [id number] Location: ER Room/Bed: Procedure: [id number] DX/CHEST SINGLE (PORTABLE) Exam Date: 02/19/18 Exam [...] 1 437 Transcribed By: RUSS on 02/19/18 0285 COPY TO: JANIE DE LA GARZA MD D-Dimer Quantitative (PE/DVT)2018-02-19 14:16:00* Test Item Value Reference Range Interpretation Comments D-Dimer Quantitative (PE/DVT) (test code = 71989-4) 1.37 0. 00-0.45 H As with all in vitro diagnostic tests, the test results should be interpreted by the physician in conjunction with clinical findings and other test results.Test results are reported in NEW D-dimer units(ug/mLFEU).[facility] CenterD-Dimer Quantitative (PE/DVT)2018-02-19 14:16:00* Test Item Value Reference Range Interpretation Comments D-Dimer Quantitative (PE/DVT) (test code = 73080-3) 1.37 0. 00-0.45 H As with all in vitro diagnostic tests, the test results should be interpreted by the physician in conjunction with clinical findings and other test results.Test results are reported in NEW D-dimer units(ug/mLFEU).[facility] CenterD-Dimer Quantitative (PE/DVT)2018-02-19 14:16:00* Test Item Value Reference Range Interpretation Comments D-Dimer Quantitative (PE/DVT) (test code = 11494-6) 1.37 0. 00-0.45 H As with all in vitro diagnostic tests, the test results should be interpreted by the physician in conjunction with clinical findings and other test results.Test results are reported in NEW D-dimer units(ug/mLFEU).[facility] CenterD-Dimer Quantitative (PE/DVT)2018-02-19 14:16:00* Test Item Value Reference Range Interpretation Comments D-Dimer Quantitative (PE/DVT) (test code = 18551-3) 1.37 0. 00-0.45 H As with all in vitro diagnostic tests, the test results should be interpreted by the physician in conjunction with clinical findings and other test results.Test results are reported in NEW D-dimer units(ug/mLFEU).[facility] CenterB-Type Natriuretic Srscfga5975-09-31 14:15:00* Test Item Value Reference Range Interpretation Comments B-Type Natriuretic Peptide (test code = 74948-3) 22.0 0-100 [facility] CenterB-Type Natriuretic Pqzvbxx5982-97-43 14:15:00* Test Item Value Reference Range Interpretation Comments B-Type Natriuretic Peptide (test code = 64922-4) 22.0 0-100 [facility] CenterHemoglobin A1c Fhunjbk8954-15-68 14:01:00 * Test Item Value Reference Range Interpretation Comments Hemoglobin A1c Percent (test code = Hemoglobin A1c Percent) 5.3 4.0-7.0 [facility] CenterHemoglobin A1c Rtecxup4528-12-73 14:01:00 * Test Item Value Reference Range Interpretation Comments Hemoglobin A1c Percent (test code = Hemoglobin A1c Percent) 5.3 4.0-7.0 [facility] CenterHemoglobin A1c Jqjinww1385-62-49 14:01:00 * Test Item Value Reference Range Interpretation Comments Hemoglobin A1c Percent (test code = Hemoglobin A1c Percent) 5.3 4.0-7.0 [facility] CenterHemoglobin A1c Emmqxoj9167-54-12 14:01:00 * Test Item Value Reference Range Interpretation Comments Hemoglobin A1c Percent (test code = Hemoglobin A1c Percent) 5.3 4.0-7.0 [facility] CenterBedside Brqccbk8652-14-81 12:02:00* Test Item Value Reference Range Interpretation Comments Bedside Glucose (test code = 97400-5) 130 70-120 H Meter ID: [id number]. [facility] CenterHemoglobin2018-07-17 05:44:00* Test Item Value Reference Range Interpretation Comments Hemoglobin (test code = 93255-5) 9.6 12.0-16.[address] [facility] CenterHematocrit2018-07-17 05:44:00* Test Item Value Reference Range Interpretation Comments Hematocrit (test code = 4544-3) 29.7 34.2-44.[address] [facility] CenterPELVIS AP 1-2 EEBGX5460-68-06 11:05:00 [facility] [address] [address] Patient Name: GIOVANA FINNEY MR #: [id number] : 1945 Age/Sex: 72/F Req #: [id number] Adm Physician: Ordered by: BAN LAGOS MD Report #: [id number] Location: OR Room/Bed: Procedure: [id number] DX/PELVIS AP 1-2 VIEWS Exam D ate: [...] COPY TO: Mikie LAGOS MD CHEST 2 UCCSV9908-20-70 12:38:[address] [address] Patient Name: GIOVANA FINNEY MR #: [id number] : 1945 Age/Sex: 72/F Req #: [id number] Adm Physician: Ordered by: LUIZA LOPES MD Report #: [id number] Location: OR Room/Bed: Procedure: [id number] DX/CHEST 2 VIEWS Exam Date: Exam Time: 1120 REPORT STATUS: Signed PRO CEDURE: X-RAY CHEST, TWO VIEWS COMPARISON: [facility], , CHEST 2 VIEWS, 02/19/2017, 12:24. [...] 1238 COPY TO: LUIZA LOPES MD Sodium Jzolu9548-72-16 10:53:00* Test Item Value Reference Range Interpretation Comments Sodium Level (test code = 2951-2) 140 136-145 [facility] CenterPotassium Eclez5910-06-29 10:53:00* Test Item Value Reference Range Interpretation Comments Potassium Level (test code = 2823-3) 4.4 3.5-5.1 [facility] CenterChloride Dpwav4944-35-69 10:53:00* Test Item Value Reference Range Interpretation Comments Chloride Level (test code = 2075-0) 101 98-107 [facility] CenterCarbon Dioxide Khsjw9550-41-95 10:53:00* Test Item Value Reference Range Interpretation Comments Carbon Dioxide Level (test code = 2028-9) 29 22-29 [facility] CenterAnion Qlp1610-56-56 10:53:00* Test Item Value Reference Range Interpretation Comments Anion Gap (test code = 58467-2) 14.4 8-16 [facility] CenterBlood Urea Xfhmdoxm4017-61-38 10:53:00* Test Item Value Reference Range Interpretation Comments Blood Urea Nitrogen (test code = 3094-0) 18 7-26 [facility] CenterCreatinine2018-07-13 10:53:00* Test Item Value Reference Range Interpretation Comments Creatinine (test code = 2160-0) 0.76 0.57-1.11 [facility] CenterBUN/Creatinine Wfwck7139-48-62 10:53:00* Test Item Value Reference Range Interpretation Comments BUN/Creatinine Ratio (test code = 3097-3) 24 6-25 [facility] CenterEstimat Glomerular Filtration Rate 2017-12-28 10:53:00* Test Item Value Reference Range Interpretation Comments Estimat Glomerular Filtration Rate (test code = 26102-6) 60- >60 Ranges were taken from the National Kidney Disease Education Program and the [facility] literature.Reference ranges:60 or greater: Mbnkky27-45 ( for 3 consecutive months): Chronic kidney disease 15 or less: Kidney failureSt. David's [facility] Medical CenterGlucose Zlvik5834-72-75 10:53:00* Test Item Value Reference Range Interpretation Comments Glucose Level (test code = OTF9703) 84 74-118 [facility] CenterCalcium Qgpem0770-55-35 10:53:00* Test Item Value Reference Range Interpretation Comments Calcium Level (test code = 10506-5) 9.4 8.4-10.2 [facility] CenterWhite Blood Qhlye5382-86-81 10:41:00* Test Item Value Reference Range Interpretation Comments White Blood Count (test code = 6690-2) 8.65 4.8-10.8 [facility] CenterRed Blood Syxay8869-61-32 10:41:00* Test Item Value Reference Range Interpretation Comments Red Blood Count (test code = 789-8) 4.07 3.6-5.1 [facility] CenterMean Corpuscular Kzinjm5591-03-94 10:41:00* Test Item Value Reference Range Interpretation Comments Mean Corpuscular Volume (test code = 787-2) 87.0 81-99 [facility] CenterMean Corpuscular Tzgmlehttd1061-61-15 10:41:00* Test Item Value Reference Range Interpretation Comments Mean Corpuscular Hemoglobin (test code = 785-6) 26.5 28-[address] [facility] CenterMean Corpuscular Hemoglobin Concent 2017-12-28 10:41:00* Test Item Value Reference Range Interpretation Comments Mean Corpuscular Hemoglobin Concent (test code = 786-4) 30.5 31-[address] [facility] CenterRed Cell Distribution Khryi1522-59-56 10:41:00* Test Item Value Reference Range Interpretation Comments Red Cell Distribution Width (test code = 28139-9) 13.4 11.7 -14.4 [facility] CenterPlatelet Krokt2521-46-06 10:41:00* Test Item Value Reference Range Interpretation Comments Platelet Count (test code = 777-3) 219 140-360 [facility] CenterNeutrophils (%) (Auto)2017-12-28 10:41:00 * Test Item Value Reference Range Interpretation Comments Neutrophils (%) (Auto) (test code = 31958-6) 73.6 38.7-80.0 [facility] CenterLymphocytes (%) (Auto)2017-12-28 10:41:00 * Test Item Value Reference Range Interpretation Comments Lymphocytes (%) (Auto) (test code = 736-9) 13.9 18.0-39.[address] [facility] CenterMonocytes (%) (Auto)2017-12-28 10:41:00* Test Item Value Reference Range Interpretation Comments Monocytes (%) (Auto) (test code = 5905-5) 7.7 4.4-11.3 [facility] CenterEosinophils (%) (Auto)2017-12-28 10:41:00 * Test Item Value Reference Range Interpretation Comments Eosinophils (%) (Auto) (test code = 713-8) 3.1 0.0-6.0 [facility] CenterBasophils (%) (Auto)2017-12-28 10:41:00* Test Item Value Reference Range Interpretation Comments Basophils (%) (Auto) (test code = 706-2) 0.8 0.0-1.0 [facility] CenterIM GRANULOCYTES %2017-12-28 10:41:00* Test Item Value Reference Range Interpretation Comments IM GRANULOCYTES % (test code = IM GRANULOCYTES %) 0.9 0.0- 1.0 [facility] CenterNeutrophils # (Auto)2017-12-28 10:41:00* Test Item Value Reference Range Interpretation Comments Neutrophils # (Auto) (test code = 751-8) 6.4 2.1-6.9 [facility] CenterLymphocytes # (Auto)2017-12-28 10:41:00* Test Item Value Reference Range Interpretation Comments Lymphocytes # (Auto) (test code = 09733-1) 1.2 1.0-3.2 [facility] CenterMonocytes # (Auto)2017-12-28 10:41:00* Test Item Value Reference Range Interpretation Comments Monocytes # (Auto) (test code = 742-7) 0.7 0.2-0.8 [facility] CenterEosinophils # (Auto)2017-12-28 10:41:00* Test Item Value Reference Range Interpretation Comments Eosinophils # (Auto) (test code = 711-2) 0.3 0.0-0.4 [facility] CenterBasophils # (Auto)2017-12-28 10:41:00* Test Item Value Reference Range Interpretation Comments Basophils # (Auto) (test code = 704-7) 0.1 0.0-0.1 [facility] CenterAbsolute Immature Granulocyte (auto 2017-12-28 10:41:00* Test Item Value Reference Range Interpretation Comments Absolute Immature Granulocyte (auto (mateo t code = Absolute Immature Granulocyte (auto) 0.08 0-0.1 [facility] CenterCT CHEST W [facility] [address] [address] Patient Name: GIOVANA FINNEY MR #: [id number] : 1945 Age/Sex: 71/F Req #: [id number] Adm Physician: Ordered by: MARILU WAITE MD Report #: [id number] Location: CT Room/Bed: Procedure: [id number] CT/CT CHEST W Exam Date: Exam Time: [...] pulmonary arterial embolism or thrombosis to the [facility] ental level. 2. Emphysematous changes. 3. Soft tissue density in the rig ht hilum may represent small reactive lymph nodes. No lymphadenopathy. Signed by: Dr. Vanessa Akins M.D. on 02/27/2017 7:51 PM Dictated By: VANESSA AKINS MD 50 Transcribed By: RUSS on 02/27/171950 COPY TO: MARILU WAITE MD CHEST 2 VIEWS [address] [address] Patient Name: GIOVANA FINNEY MR #: [id number] : 1945 Age/Sex: 71/F Req #: [id number] Adm Physician: Ordered by: AKIKO GAMBOA MD Report #: [id number] Location: ER Room/Bed: Procedure: [id number] DX/CHEST 2 VIEWS Exam Date: 02/19/17 Exam [...]
== END 2020-04-21 10:43 | disposition home or self-care (01) ==
LOC: ER 16:25 → ERHOLD 18:26 → MED/SURG3 22:52
PROVIDERS: ADMIT Internal Medicine; ATTEND Internal Medicine
DX: J44.0 Chronic obstructive pulmonary disease with (acute) lower respiratory infection (principal); J20.9 Acute bronchitis, unspecified; J44.1 Chronic obstructive pulmonary disease with (acute) exacerbation; Z11.59 Encounter for screening for other viral diseases; I10 Essential (primary) hypertension; F31.9 Bipolar disorder, unspecified; E11.9 Type 2 diabetes mellitus without complications
CPT/HCPCS: 36415 ×3; 71045; 80053 ×2; 82550 ×2; 82553 ×2; 82948 ×3; 83880; 84484 ×2; 85025 ×2; 93005 ×2; 93306; 94640 ×3; 96372; 99284; G0378 ×3; J0360; J0456 ×2; J0696 ×2; J2270; J2405; J2550; J2785 ×2; J2920; J2930; J3301; J7050; U0002; 93017

== ENCOUNTER 2021-01-20 11:24 | Emergency (ER) | payer MEDICARE, OTHER ==
[~2021-01-20] VITALS: Ht 163.8 cm; Wt 62.1 kg
[~2021-01-20 11:24] MED LIST changes: +DOXYCYCLINE HY100 MG PO; +TESSALON PERLE100 MG
[2021-01-20] MEDS ORDERED: ASPIRIN 81 MG CHEW TAB PO ONE (11:45)
[2021-01-20] MEDS: DEXAMETHASONE SOD PHOS INJ 4 MG/ML VIAL IV ONE ×2 (11:45→11:47)
[2021-01-20] MEDS ORDERED: AZITHROMYCIN250 MG PO (12:14)
[2021-01-20] MEDS ORDERED: TESSALON PERLE100 MG PO (12:14)
[2021-01-20] MEDS ORDERED: DECADRON4 M1 PO (12:14)
[2021-01-20] MEDS ORDERED: ASPIRIN 325 MG TAB ONE (12:24)
[2021-01-20] MEDS ORDERED: DEXAMETHASONE SOD PHOS INJ 4 MG/ML VIAL ONE (12:24)
== END 2021-01-20 12:41 | disposition home or self-care (01) ==
LOC: FSED 11:34
DX: R06.02 Shortness of breath (principal); R07.9 Chest pain, unspecified; Z20.822 Contact with and (suspected) exposure to COVID-19; B34.9 Viral infection, unspecified; Z71.89 Other specified counseling; R94.31 Abnormal electrocardiogram [ECG] [EKG]
CPT/HCPCS: 71045; 80053; 82553; 84484; 85025; 93005; 99284; J1100

== ENCOUNTER 2021-03-27 12:10 | Emergency (ER) | payer MEDICARE ==
[~2021-03-27] VITALS: Ht 162.6 cm; Wt 59.0 kg
[~2021-03-27 12:10] MED LIST changes: +AZITHROMYCIN250 MG PO; +DECADRON4 M1 PO; +TESSALON PERLE100 MG PO
[2021-03-27] MEDS ORDERED: IBUPROFEN 600 MG TAB PO STA (12:28)
[2021-03-27] MEDS ORDERED: IBUPROFEN 600 MG TAB ONE (12:43)
[2021-03-27] MEDS ORDERED: LIDOCAINE PAIN1 EACH TD (13:15)
== END 2021-03-27 13:20 | disposition home or self-care (01) ==
LOC: FSED 12:20
DX: M25.551 Pain in right hip (principal); M79.18 Myalgia, other site; W18.30XA Fall on same level, unspecified, initial encounter; Y93.01 Activity, walking, marching and hiking; I10 Essential (primary) hypertension; E11.9 Type 2 diabetes mellitus without complications; J44.9 Chronic obstructive pulmonary disease, unspecified; F31.9 Bipolar disorder, unspecified; F41.9 Anxiety disorder, unspecified; Z96.642 Presence of left artificial hip joint; Z96.651 Presence of right artificial knee joint
CPT/HCPCS: 99283

== ENCOUNTER 2021-04-05 11:13 | Emergency (ER) | payer MEDICARE ==
[~2021-04-05] VITALS: Ht 162.6 cm; Wt 59.0 kg
[~2021-04-05 11:13] MED LIST changes: +LIDOCAINE PAIN1 EACH TD
[2021-04-05] MEDS ORDERED: IBUPROFEN 400 MG TAB PO ONE (11:45)
[2021-04-05] MEDS ORDERED: IBUPROFEN400 MG PO (12:37)
== END 2021-04-05 12:44 | disposition home or self-care (01) ==
LOC: FSED 11:18
DX: M25.551 Pain in right hip (principal); W19.XXXA Unspecified fall, initial encounter; Z96.641 Presence of right artificial hip joint; I10 Essential (primary) hypertension; E11.9 Type 2 diabetes mellitus without complications; J44.9 Chronic obstructive pulmonary disease, unspecified; F31.9 Bipolar disorder, unspecified; Z98.0 Intestinal bypass and anastomosis status
CPT/HCPCS: 72192; 99283

== ENCOUNTER 2021-04-14 08:54 | Emergency (ER) | payer MEDICARE ==
[~2021-04-14] VITALS: Ht 162.6 cm; Wt 59.0 kg
[~2021-04-14 08:54] MED LIST changes: +IBUPROFEN400 MG PO
[2021-04-14] MEDS ORDERED: IBUPROFEN 400 MG TAB PO ONE (09:30)
[2021-04-14] MEDS ORDERED: ACETAMINOPHEN 325 MG TAB PO ONE (09:30)
[2021-04-14] MEDS ORDERED: TRAMADOL HCL 50 MG TAB PO ONE (09:30)
[2021-04-14] MEDS ORDERED: IBUPROFEN400 MG PO (10:05)
[2021-04-14] MEDS ORDERED: ULTRAM50 MG PO (10:06)
== END 2021-04-14 10:40 | disposition home or self-care (01) ==
LOC: ER 09:15
DX: M25.551 Pain in right hip (principal); M79.18 Myalgia, other site; I10 Essential (primary) hypertension; E11.9 Type 2 diabetes mellitus without complications; J44.9 Chronic obstructive pulmonary disease, unspecified; F31.9 Bipolar disorder, unspecified; F41.9 Anxiety disorder, unspecified
CPT/HCPCS: 99283

== ENCOUNTER 2021-04-16 05:09 | Inpatient (IN) | payer MEDICARE, OTHER ==
[~2021-04-16] VITALS: Ht 165.1 cm; Wt 59.0 kg
[~2021-04-16 05:09] MED LIST changes: +ULTRAM50 MG PO
[2021-04-16] MEDS ORDERED: LIDOCAINE 4% PATCH TP ONE (05:30)
[2021-04-16] MEDS ORDERED: KETOROLAC TROMETHAMINE 30 MG/ML VIAL IM ONE (05:30)
[2021-04-16] MEDS ORDERED: ONDANSETRON HCL INJ 2MG/ML 2ML 2 MG/ML VIAL IV STA (08:28)
[2021-04-16] MEDS ORDERED: Morphine 2mg Syringe 2 MG/ML SYR IV ONE (08:30)
[2021-04-16] MEDS ORDERED: ONDANSETRON HCL INJ 2MG/ML 2ML 2 MG/ML VIAL ONE (08:41)
[2021-04-16 09:26] LABS: BASOPHILS % 0.1 % (0.0-1.0); HEMATOCRIT 30.8 % (34.2-44.1); LYMPHOCYTES # (AUTO) 0.5 (1.0-3.2); LYMPHOCYTES % 5.7 % (18.0-39.1); MEAN CORPUSCULAR HGB CONC 29.2 g/dL (31-35); MEAN CORPUSCULAR VOLUME 75.1 fL (81-99); MONOCYTES # (AUTO) 0.1 (0.2-0.8); MONOCYTES % 1.2 % (4.4-11.3); NEUTROPHILS # (AUTO) 8.3 (2.1-6.9); NEUTROPHILS % 92.3 % (38.7-80.0); PLATELET COUNT 494 x10e3/uL (140-360); RED CELL DISTRIBUTION WIDTH 14.2 % (11.7-14.4)
[2021-04-16 09:37] LABS: INR 0.88; PROTHROMBIN TIME 12.6 seconds (11.9-14.5)
[2021-04-16 09:38] LABS: PARTIAL THROMBOPLASTIN TIME 28.8 seconds (23.8-35.5)
[2021-04-16 09:45] LABS: ALANINE AMINOTRANSFERASE 17 IU/L (0-55); ALBUMIN 3.2 g/dL (3.5-5.0); ALBUMIN/GLOBULIN RATIO 0.8 (0.8-2.0); ALKALINE PHOSPHATASE 70 IU/L (40-150); ANION GAP 15.8 mmol/L (8-16); BLOOD UREA NITROGEN 22 mg/dL (7-26); BUN/CREATININE RATIO 28 (6-25); CARBON DIOXIDE 23 mmol/L (22-29); CHLORIDE 107 mmol/L (98-107); CREATINE KINASE 129 IU/L (29-168); CREATININE, SERUM 0.78 mg/dL (0.57-1.11); EST GLOMERULAR FILTRATION RATE 72 ML/MIN (60-); GLUCOSE 117 mg/dL (74-118); MAGNESIUM 1.9 MG/DL (1.3-2.1); POTASSIUM 3.8 mmol/L (3.5-5.1); SODIUM 142 mmol/L (136-145)
[2021-04-16] MEDS ORDERED: SODIUM CHLORIDE 0.9% 1000ML 1,000 ML IV SCH ×2 (09:45→17:45)
[2021-04-16] MEDS ORDERED: Morphine 2mg Syringe 2 MG/ML SYR IV PRN (09:45)
[2021-04-16] MEDS: ONDANSETRON HCL INJ 2MG/ML 2ML 2 MG/ML VIAL IV PRN (10:44)
[2021-04-16] MEDS ORDERED: ALBUTEROL/IPRATROPIUM 3 ML NEB NEB PRN (11:30)
[2021-04-16] MEDS ORDERED: HYDRALAZINE HCL 20 MG/ML VIAL IV PRN (11:30)
[2021-04-16] MEDS ORDERED: KETOROLAC TROMETHAMINE 30 MG/ML VIAL IV NR (11:30)
[2021-04-16] MEDS: SENNA-S TABLET PO SCH ×2 (12:56→17:36)
[2021-04-16] MEDS: Morphine 4mg Syringe 4 MG/ML INJ IV PRN ×2 (14:47→21:54)
[2021-04-16 14:56] VITALS: BP 164/70
[2021-04-16 14:57] VITALS: BP 164/70
[2021-04-16 15:00] VITALS: BP 164/70
[2021-04-16] MEDS ORDERED: FENTANYL CITRATE/PF 100MCG/2 ML INJ ONE (16:52)
[2021-04-16] MEDS ORDERED: KETAMINE HCL INJ 50 MG/ML 10 ML VIAL ONE (16:52)
[2021-04-16] MEDS: HYDROCODONE/APAP 7.5MG-325MG 1 EA TAB PO PRN ×2 (17:36→23:07)
[2021-04-16 17:53] LABS: CREATINE KINASE 111 IU/L (29-168)
[2021-04-16] MEDS ORDERED: CLINDAMYCIN PHOS 900MG/ 50ML 50 ML IV ONE (18:00)
[2021-04-16 20:00] VITALS: BP 131/85
[2021-04-16 21:00] VITALS: BP 131/85
[2021-04-17] VITALS (9 sets, daily range): BP systolic 109–130; BP diastolic 55–87
[2021-04-17] MEDS: KETOROLAC TROMETHAMINE 30 MG/ML VIAL IV PRN ×2 (00:28→16:25)
[2021-04-17] MEDS: Morphine 4mg Syringe 4 MG/ML INJ IV PRN ×2 (02:08→05:14)
[2021-04-17 06:37] LABS: BASOPHILS % 0.4 % (0.0-1.0); EOSINOPHILS # (AUTO) 0.1 (0.0-0.4); EOSINOPHILS % 0.9 % (0.0-6.0); HEMOGLOBIN 8.2 g/dL (12.0-16.0); LYMPHOCYTES # (AUTO) 1.4 (1.0-3.2); LYMPHOCYTES % 13.2 % (18.0-39.1); MEAN CORPUSCULAR HGB CONC 29.3 g/dL (31-35); MEAN CORPUSCULAR VOLUME 75.3 fL (81-99); MONOCYTES # (AUTO) 0.7 (0.2-0.8); MONOCYTES % 6.6 % (4.4-11.3); NEUTROPHILS # (AUTO) 8.3 (2.1-6.9); NEUTROPHILS % 78.1 % (38.7-80.0); PLATELET COUNT 443 x10e3/uL (140-360); RED BLOOD COUNT 3.72 x10e6/uL (3.6-5.1); RED CELL DISTRIBUTION WIDTH 14.3 % (11.7-14.4)
[2021-04-17 07:00] LABS: ALBUMIN 2.8 g/dL (3.5-5.0); ALBUMIN/GLOBULIN RATIO 0.8 (0.8-2.0); ANION GAP 14.1 mmol/L (8-16); CALCIUM 8.8 mg/dL (8.4-10.2); CREATININE, SERUM 0.81 mg/dL (0.57-1.11); POTASSIUM 4.1 mmol/L (3.5-5.1)
[2021-04-17 07:23] LABS: CREATINE KINASE 143 IU/L (29-168)
[2021-04-17] MEDS ORDERED: CLINDAMYCIN PHOS 900MG/ 50ML 50 ML IV ONE (07:31)
[2021-04-17] MEDS: SENNA-S TABLET PO SCH ×2 (09:00→17:00)
[2021-04-17] MEDS ORDERED: NALOXONE HCL INJ 0.4 MG/ML AMP IV PRN (10:15)
[2021-04-17] MEDS ORDERED: ONDANSETRON HCL INJ 2MG/ML 2ML 2 MG/ML VIAL IV PRN (10:15)
[2021-04-17] MEDS ORDERED: HYDROMORPHONE 0.2MG/ML-SOD CHL 30ML PCA SYRINGE IV PRN (10:15)
[2021-04-17] MEDS ORDERED: ALBUTEROL/IPRATROPIUM 3 ML NEB ONE (10:30)
[2021-04-17] MEDS ORDERED: FENTANYL CITRATE/PF 100MCG/2 ML INJ ONE (10:37)
[2021-04-17] MEDS ORDERED: HYDROMORPHONE 0.2MG/ML-SOD CHL 30ML PCA SYRINGE IV ONE (10:53)
[2021-04-17] MEDS ORDERED: HYDROMORPHONE 2MG/ML 2 MG/ML ML ONE (10:55)
[2021-04-17] MEDS: HYDROCODONE/APAP 7.5MG-325MG 1 EA TAB PO PRN (11:54)
[2021-04-17] MEDS: SODIUM CHLORIDE 0.9% 1000ML 1,000 ML IV SCH ×2 (11:54→19:34)
[2021-04-17 13:12] LABS: THYROID STIMULATING HORMONE 3.795 uIU/mL (0.350-4.940)
[2021-04-17] MEDS ORDERED: PHENYLEPHRINE HCL 1% 10 MG/ML VIAL ONE (13:46)
[2021-04-17] MEDS ORDERED: DEXAMETHASONE SOD PHOS INJ 4 MG/ML SDV ONE (13:46)
[2021-04-17] MEDS ORDERED: PROPOFOL IV EMULSION 10 MG/ML 20 ML VIAL ONE (13:46)
[2021-04-17] MEDS ORDERED: POVIDONE IODINE 0.05% 0.05 % ML PO ONE (13:46)
[2021-04-17] MEDS ORDERED: LIDOCAINE HCL 2% LOCAL INJ 5 ML SDV VIAL INJ ONE (13:46)
[2021-04-17] MEDS ORDERED: SEVOFLURANE INHAL SOLN 250 ML PEN BTL ONE (13:46)
[2021-04-17] MEDS: CLINDAMYCIN PHOS 900MG/ 50ML 50 ML IV SCH ×2 (14:00→21:11)
[2021-04-17] MEDS: ONDANSETRON HCL INJ 2MG/ML 2ML 2 MG/ML VIAL IV PRN (16:31)
[2021-04-17] MEDS ORDERED: SERTRALINE HCL 100 MG TAB PO SCH (17:00)
[2021-04-17] MEDS: BUPROPION HCL 150 MG TABCR PO SCH (17:11)
[2021-04-17] MEDS ORDERED: LISINOPRIL 2.5 MG TAB PO SCH (21:00)
[2021-04-17] MEDS: DONEPEZIL HCL 5 MG TAB PO SCH (21:10)
[2021-04-17] MEDS: TRAZODONE HCL 50 MG TAB PO SCH (21:10)
[2021-04-17] MEDS: GABAPENTIN 300 MG CAP PO SCH (21:10)
[2021-04-18] VITALS (7 sets, daily range): BP systolic 97–131; BP diastolic 50–60
[2021-04-18] MEDS: KETOROLAC TROMETHAMINE 30 MG/ML VIAL IV PRN ×3 (01:52→19:19)
[2021-04-18] MEDS: CLINDAMYCIN PHOS 900MG/ 50ML 50 ML IV SCH (05:37)
[2021-04-18] MEDS: SODIUM CHLORIDE 0.9% 1000ML 1,000 ML IV SCH (05:38)
[2021-04-18 06:04] LABS: ANION GAP 14.2 mmol/L (8-16); CALCIUM 8.5 mg/dL (8.4-10.2); CREATININE, SERUM 0.71 mg/dL (0.57-1.11); POTASSIUM 4.2 mmol/L (3.5-5.1)
[2021-04-18] MEDS ORDERED: RIVAROXABAN 10 MG TABLET PO SCH (08:00)
[2021-04-18] MEDS: SENNA-S TABLET PO SCH ×2 (08:44→21:25)
[2021-04-18] MEDS: BUPROPION HCL 150 MG TABCR PO SCH (08:44)
[2021-04-18] MEDS: GABAPENTIN 300 MG CAP PO SCH ×3 (08:44→21:24)
[2021-04-18] MEDS: SERTRALINE HCL 100 MG TAB PO SCH ×2 (08:45→21:25)
[2021-04-18 09:27] LABS: BASOPHILS % 0.3 % (0.0-1.0); EOSINOPHILS % 0.1 % (0.0-6.0); HEMATOCRIT 27.4 % (34.2-44.1); HEMOGLOBIN 7.6 g/dL (12.0-16.0); LYMPHOCYTES # (AUTO) 1.2 (1.0-3.2); LYMPHOCYTES % 12.9 % (18.0-39.1); MEAN CORPUSCULAR HEMOGLOBIN 22.3 pg (28-32); MEAN CORPUSCULAR HGB CONC 27.7 g/dL (31-35); MEAN CORPUSCULAR VOLUME 80.4 fL (81-99); MONOCYTES % 10.8 % (4.4-11.3); NEUTROPHILS # (AUTO) 6.7 (2.1-6.9); NEUTROPHILS % 75.3 % (38.7-80.0); PLATELET COUNT 396 x10e3/uL (140-360); RED BLOOD COUNT 3.41 x10e6/uL (3.6-5.1)
[2021-04-18] MEDS: HYDROCODONE/APAP 7.5MG-325MG 1 EA TAB PO PRN ×2 (09:40→17:37)
[2021-04-18] MEDS: FOLIC ACID 1 MG TAB PO SCH (10:34)
[2021-04-18] MEDS: CYANOCOBALAMIN INJ 1,000 MCG/ML VIAL IM SCH (10:35)
[2021-04-18] MEDS ORDERED: SODIUM CHLORIDE 0.9% 250ML 250 ML IV ONE (14:00)
[2021-04-18] MEDS: DONEPEZIL HCL 5 MG TAB PO SCH (21:24)
[2021-04-18] MEDS: TRAZODONE HCL 50 MG TAB PO SCH (21:24)
[2021-04-18] MEDS: Morphine 4mg Syringe 4 MG/ML INJ IV PRN (23:50)
[2021-04-19 00:11] VITALS: BP 112/63
[2021-04-19] MEDS: FUROSEMIDE INJ 10 MG/ML 2 ML VIAL IV PRN ×2 (00:45→05:00)
[2021-04-19] MEDS: Morphine 4mg Syringe 4 MG/ML INJ IV PRN (03:57)
[2021-04-19 05:12] VITALS: BP 90/54
[2021-04-19 05:35] LABS: BASOPHILS % 0.4 % (0.0-1.0); EOSINOPHILS # (AUTO) 0.3 (0.0-0.4); EOSINOPHILS % 2.9 % (0.0-6.0); HEMATOCRIT 39.2 % (34.2-44.1); HEMOGLOBIN 11.2 g/dL (12.0-16.0); LYMPHOCYTES % 8.9 % (18.0-39.1); MEAN CORPUSCULAR HEMOGLOBIN 23.5 pg (28-32); MEAN CORPUSCULAR HGB CONC 28.6 g/dL (31-35); MEAN CORPUSCULAR VOLUME 82.2 fL (81-99); MONOCYTES % 8.6 % (4.4-11.3); NEUTROPHILS # (AUTO) 8.6 (2.1-6.9); NEUTROPHILS % 78.4 % (38.7-80.0); PLATELET COUNT 311 x10e3/uL (140-360); RED BLOOD COUNT 4.77 x10e6/uL (3.6-5.1); RED CELL DISTRIBUTION WIDTH 15.6 % (11.7-14.4)
[2021-04-19 05:56] LABS: ANION GAP 16.1 mmol/L (8-16); CALCIUM 8.5 mg/dL (8.4-10.2); CREATININE, SERUM 0.7 mg/dL (0.57-1.11); POTASSIUM 4.1 mmol/L (3.5-5.1)
[2021-04-19 07:14] VITALS: BP 137/64
[2021-04-19 08:00] VITALS: BP 137/64
[2021-04-19] MEDS ORDERED: RIVAROXABAN 10 MG TABLET PO SCH (08:00)
[2021-04-19] MEDS: GABAPENTIN 300 MG CAP PO SCH ×2 (08:08→14:40)
[2021-04-19] MEDS: CYANOCOBALAMIN INJ 1,000 MCG/ML VIAL IM SCH (08:09)
[2021-04-19] MEDS: SENNA-S TABLET PO SCH (08:09)
[2021-04-19] MEDS: FOLIC ACID 1 MG TAB PO SCH (08:09)
[2021-04-19] MEDS: KETOROLAC TROMETHAMINE 30 MG/ML VIAL IV PRN (08:10)
[2021-04-19] MEDS: BUPROPION HCL 150 MG TABCR PO SCH (08:10)
[2021-04-19] MEDS: HYDROCODONE/APAP 7.5MG-325MG 1 EA TAB PO PRN (08:11)
[2021-04-19] MEDS: SERTRALINE HCL 100 MG TAB PO SCH (08:12)
[2021-04-19] MEDS ORDERED: ONDANSETRON HCL 4 MG ORAL DISINTEGRATING TAB PO PRN (09:30)
[2021-04-19] MEDS ORDERED: CELECOXIB 200 MG CAP PO ONE (10:00)
[2021-04-19 11:02] VITALS: BP 124/78
[2021-04-19] MEDS: HYDROCODONE/APAP 10MG-325MG TAB PO PRN ×3 (14:40→19:43)
[2021-04-19 15:38] VITALS: BP 136/84
[2021-04-19] MEDS ORDERED: SENNA LAX8.6 MG PO (16:10)
[2021-04-19] MEDS ORDERED: VITAMIN B-121000 MCG PO (16:11)
[2021-04-19] MEDS ORDERED: XARELTO10 MG PO (16:12)
[2021-04-19] MEDS ORDERED: FOLIC ACID-VIT1 EACH PO (16:12)
[2021-04-19] MEDS ORDERED: ONDANSETRON ODT4 MG PO (16:13)
[2021-04-19] MEDS ORDERED: PANTOPRAZOLE SO40 MG PO (16:13)
[2021-04-19] MEDS ORDERED: CELEBREX200 MG PO (16:13)
[2021-04-19] MEDS ORDERED: HYDROCODON-ACE1 EAC9 PO (16:14)
[2021-04-19] MEDS ORDERED: CELECOXIB 100 MG CAP PO SCH (17:00)
[2021-04-20] MEDS ORDERED: PANTOPRAZOLE SOD 40 MG TABEC PO SCH (07:30)
== END 2021-04-19 19:37 | DRG 482 ==
LOC: ER 05:24 → ERHOLD 09:42 → MED/SURG 14:20
PROVIDERS: ADMIT Internal Medicine; ATTEND Internal Medicine
PROC: 0QS834Z Reposition Right Femoral Shaft with Internal Fixation Device, Percutaneous Approach (ICD-10-PCS; principal; 2021-04-17 08:22)
PROC: 30233N1 Transfusion of Nonautologous Red Blood Cells into Peripheral Vein, Percutaneous Approach (ICD-10-PCS; 2021-04-18)
DX: S72.011A Unspecified intracapsular fracture of right femur, initial encounter for closed fracture (principal); W01.0XXA Fall on same level from slipping, tripping and stumbling without subsequent striking against object, initial encounter; Y92.000 Kitchen of unspecified non-institutional (private) residence as the place of occurrence of the external cause; J44.9 Chronic obstructive pulmonary disease, unspecified; F31.9 Bipolar disorder, unspecified; I10 Essential (primary) hypertension; G25.81 Restless legs syndrome; F17.200 Nicotine dependence, unspecified, uncomplicated; Z20.822 Contact with and (suspected) exposure to COVID-19; Z96.641 Presence of right artificial hip joint
CPT/HCPCS: 36415; 70450; 71045; 72125; 72192; 76000; 80048; 80053; 82550; 82553; 82607; 82746; 82948; 83540; 83735; 83880; 84443; 84466; 84484; 85025; 85610; 85730; 86850; 86900; 86920; 93005; 97139; 99284; C1713; J1100; J1885; J1940; J2001; J2270; J2370; J2405; J3010; J3420; J7030; J7050; P9016; U0002